=== PATIENT | female | born 1965 | race Caucasian/White ===

== ENCOUNTER 2017-01-02 16:31 | Emergency (ER) | payer BC, MEDICAID ==
[~2017-01-02] VITALS: Ht 162.6 cm; Wt 56.0 kg
[~2017-01-02 16:31] MED LIST: FLUR30CA12 PO; LISI20 PO; METH500T3 PO; MUPI2OIN TOP; NAPR-576 PO; ONDA8
[2017-01-02 16:33] VITALS: BP 139/63; PULSE 66; RESP 12; TEMP 97.6; O2SAT 90
[2017-01-02 18:04] LABS: AUTOMATED NEUTROPHIL # 5.3 TH/MM3 (1.8-7.7); BASOPHIL # 0.1 TH/MM3 (0-0.2); BASOPHIL % 0.9 % (0.0-2.0); EOSINOPHIL # 0.3 TH/MM3 (0-0.4); HEMO FLAGS DIFF FINAL; LYMPHOCYTE # 2.4 TH/MM3 (1.0-4.8); MEAN CELL VOLUME 90.6 FL (80.0-100.0); MEAN CORPUSCULAR HEMOGLOBIN 31.7 PG (27.0-34.0); MEAN CORPUSCULAR HGB CONC 34.9 % (32.0-36.0); MONO % 7.1 % (0.0-8.0); PLATELET COUNT 325 TH/MM3 (150-450); RED BLOOD COUNT 5.18 MIL/MM3 (4.00-5.30); RED CELL DISTRIBUTION WIDTH 13.2 % (11.6-17.2); WHITE BLOOD COUNT 8.6 TH/MM3 (4.0-11.0)
[2017-01-02 18:22] VITALS: BP 169/105; PULSE 81; RESP 18; O2SAT 96
[2017-01-02] MEDS ORDERED: methylPREDNISolone SOD SUCC 125 MG/2 ML VIAL IVP ONE (18:30)
--- NOTE | 2017-01-02 18:45 | PD ---
HPI Chief Complaint: Respiratory Symptoms Time Seen by Provider: 18:21 Travel History International Travel<30 days: No Contact w/Intl Traveler<30days: No Traveled to known affect area: No History of Present Illness HPI 51yo F with CKD, ?COPD who is a cigarette smoker here with multiple complaints today. Pt is c/o sob for 1 week and is wheezing at home. Ventolin is not helping. Pt also with vaginal spotting for 1 week. Pt also states that she had a mass or growth on her ovary that was seen in ultrasound 2 years ago and she has not followed up. Pt also with cloudy, foul smelling urine for 1 week. Denies any fever, chest pain, n/v, dysuria, vaginal discharge, focal weakness or numbness. PFSH Past Medical History Cardiovascular Problems: Yes (HTN) COPD: Yes Diminished Hearing: No Hypertension: Yes Respiratory: Yes (ASTHMA) Tetanus Vaccination: Unknown Influenza Vaccination: Yes ?: Not Social History Alcohol Use: No Tobacco Use: Yes Substance Use: No Allergies-Medications (Allergen,Severity, Reaction): Coded Allergies: Penicillin (Verified Allergy, Severe, 01/02/17) Sulfa (Verified Allergy, Severe, 01/02/17) Reported Meds & Prescriptions Reported Meds & Active Scripts Active Proair Respiclick Inh (Albuterol Sulfate) 90 Mcg/Act Aerp 2 Puff INH Q6H PRN Medrol Dosepak (Methylprednisolone) 4 Mg Dspk 4 Mg PO DIRECTED Per Pharmacist direction Macrobid (Nitrofurantoin Monoh/Nitrofur Macro) 100 Mg Cap 100 Mg PO BID Reported Zofran 8 Mg Tab (Ondansetron Hcl) 8 Mg Tab 8 Mg .XX Mupirocin 2% oint (22 gm) (Mupirocin) 2 % Oin 2 % TOP Q12 Prinivil 20 mg (Lisinopril) 20 Mg Tab 20 Mg PO DAILY Naproxen 500 Mg Tab 500 Mg PO Q12 Flurazepam Hcl (Flurazepam HCl) 30 Mg Cap 30 Mg PO [id number] M1 500 Mg Tab 500 Mg PO Q8 Review of Systems Except as stated in HPI: all other systems reviewed are Neg Physical Exam Narrative GENERAL: 51yo F not in distress. SKIN: Warm and dry. HEAD: Atraumatic. Normocephalic. NECK: Trachea midline. No JVD. CARDIOVASCULAR: Regular rate and rhythm. No murmur appreciated. RESPIRATORY: No accessory muscle use. End expiratory wheezing bilaterally. No retractions. Speaking in complete sentences. O2 sat 94-95% on RA. GASTROINTESTINAL: Abdomen soft, Mild LLQ ttp. No rebound tenderness or guarding. PELVIC: No blood in vaginal vault but there is a small amount of blood at the cervical os. No vaginal discharge. No CMT or adnexal tenderness bilaterally. MUSCULOSKELETAL: No obvious deformities. No clubbing. No cyanosis. No edema. NEUROLOGICAL: Awake and alert. No obvious cranial nerve deficits. Motor grossly within normal limits. Normal speech. PSYCHIATRIC: Appropriate mood and affect; insight and judgment normal. Data Data Last Documented VS Vital Signs Date Time Temp Pulse Resp B/P Pulse Ox O2 Delivery O2 Flow Rate FiO2 01/02/17 21:47 75 16 134/76 100 01/02/17 16:33 97.6 Room Air Orders Complete Blood Count With Diff (01/02/17 17:08) Basic Metabolic Panel (Bmp) (01/02/17 17:08) Electrocardiogram (01/02/17 17:08) Methylprednisolone So Succ Inj (Solumedr (01/02/17 18:30) Albuterol-Ipratropium Neb (Duoneb Neb) (01/02/17 18:30) Chest, Single Ap (01/02/17 ) Gc And Chlamydia Pcr (01/02/17 18:46) Wet Prep Profile (01/02/17 18:46) Urinalysis - C+S If Indicated (01/02/17 18:46) Ed Urine Pregnancytest Poc (01/02/17 18:46) Us Pelvis Comp W Transvaginal (01/02/17 ) Nitrofurantoin Monohyd Macrocr (Macrobid (01/02/17 20:45) Labs Laboratory Tests Test 01/02/17 01/02/17 01/02/17 17:51 18:45 19:45 White Blood Count 8.6 TH/MM3 Red Blood Count 5.18 MIL/MM3 Hemoglobin 16.4 GM/DL Hematocrit 47.0 % Mean Corpuscular Volume 90.6 FL Mean Corpuscular Hemoglobin 31.7 PG Mean Corpuscular Hemoglobin 34.9 % Concent Red Cell Distribution Width 13.2 % Platelet Count 325 TH/MM3 Mean Platelet Volume 7.9 FL Neutrophils (%) (Auto) 61.0 % Lymphocytes (%) (Auto) 28.0 % Monocytes (%) (Auto) 7.1 % Eosinophils (%) (Auto) 3.0 % Basophils (%) (Auto) 0.9 % Neutrophils # (Auto) 5.3 TH/MM3 Lymphocytes # (Auto) 2.4 TH/MM3 Monocytes # (Auto) 0.6 TH/MM3 Eosinophils # (Auto) 0.3 TH/MM3 Basophils # (Auto) 0.1 TH/MM3 CBC Comment DIFF FINAL Differential Comment Sodium Level 137 MEQ/L Potassium Level 3.5 MEQ/L Chloride Level 99 MEQ/L Carbon Dioxide Level 29.2 MEQ/L Anion Gap 9 MEQ/L Blood Urea Nitrogen 31 MG/DL Creatinine 2.41 MG/DL Estimat Glomerular Filtration 21 ML/MIN Rate Random Glucose 110 MG/DL Calcium Level 9.1 MG/DL Clue Cells (Wet Prep) NONE SEEN Vaginal Trichomonas (Wet Prep) NONE SEEN Vaginal Yeast (Wet Prep) NONE SEEN Chlamydia trachomatis DNA NOT DETECTED (PCR) Neisseria gonorrhoeae DNA NOT DETECTED (PCR) Urine Color YELLOW Urine Turbidity CLEAR Urine pH 6.5 Urine Specific [place] 1.011 Urine Protein 100 mg/dL Urine Glucose (UA) NEG mg/dL Urine Ketones NEG mg/dL Urine Occult Blood NEG Urine Nitrite POS Urine Bilirubin NEG Urine Urobilinogen LESS THAN 2.0 MG/DL Urine Leukocyte Esterase TRACE Urine RBC 1 /hpf Urine WBC 6 /hpf Urine Squamous Epithelial <1 /hpf Cells Urine Bacteria RARE /hpf Microscopic Urinalysis Comment CULT NOT INDICATED MDM Medical Decision Making Medical Screen Exam Complete: Yes Emergency Medical Condition: Yes Interpretation(s) EKG: Sinus bradycardia at 59bpm. Normal axis. Q wave III, aVF, V1, V3. SHIRAZ. Differential Diagnosis Ovarian tumor vs. ovarian cyst vs. COPD exacerbation vs. PNA Narrative Course 51yo F with multiple complaints. Pt seen at end of my shift. Pt given duonebs x3 and methylprednisolone 125mg IV. Sign out to next team to follow up labs, CXR, UA, US pelvis. Pt to follow up with VALVE PIPE IRRIGATOR as outpatient if work up negative. Scripts Albuterol Powder Inh (Proair Respiclick Inh)90 Mcg/Act Aerp2 Puff INH Q6H PRN ( SHORTNESS OF BREATH) #1 INHALER Ref 0 Prov:Elma Chavez MD 01/02/17 Methylprednisolone Dosepak (Medrol Dosepak)4 Mg Dspk4 Mg PO DIRECTED #1 DSPK Ref 0 Per Pharmacist direction Prov:Elma Chavez MD 01/02/17 Nitrofurantoin Monohydrate Macrocrystals (Macrobid)100 Mg Prx110 Mg PO BID #19 CAP Ref 0 Prov:Elma Chavez MD 01/02/17 Karlee Hurd DO Jan 02, 2017 18:45
[2017-01-02 18:55] LABS: BICARBONATE 29.2 MEQ/L (21.0-32.0); POTASSIUM 3.5 MEQ/L (3.5-5.1)
[2017-01-02] MEDS: RESP: ALBUTEROL 2.5 MG/IPRATROPIUM 0.5 MG NEB (SCH) INH ×3 (18:55→19:07)
--- NOTE | 2017-01-02 19:09 | RADRPT ---
EXAM DATE/TIME: 01/02/2017 16:52 [facility] COMPARISON: CHEST SINGLE AP, August 31, 2013, 12:37. INDICATIONS : Shortness of breath. MEDICAL HISTORY : Hypertension. Chronic obstructive pulmonary disease. Smoker. SURGICAL HISTORY : None. ENCOUNTER: Initial ACUITY: 2 days PAIN SCORE: 0/10 LOCATION: Bilateral chest FINDINGS: A single view of the chest demonstrates the lungs to be symmetrically aerated without evidence of mas s, infiltrate or effusion. The cardiomediastinal contours are unremarkable. Osseous structures are intact. CONCLUSION: No acute disease. Joss Crowley MD on January 02, 2017 at 19:07 Board Certified Radiologist. This report was verified electronically.
--- NOTE | 2017-01-02 19:50 | PD ---
Physical Exam Narrative General: The patient is a well-developed well-nourished female in no acute distress. Head and Neck exam: Head is normocephalic atraumatic. Cardiovascular: Regular rate and rhythm without murmurs, gallops, or rubs. Lungs: Clear to auscultation bilaterally. No wheezes, rhonchi, or rales. Abdomen: Soft, without tenderness to palpation in all 4 quadrants of the abdomen. No guarding, rebound, or rigidity. Normal bowel sounds are audible. No tenderness on palpation of McBurney's point. The patient has slight suprapubic discomfort on palpation. Extremities: No clubbing, cyanosis, or edema. 2+ pulses in all 4 extremities. Neurologic Exam: Grossly nonfocal. Skin Exam: No rash noted. Intact skin that is warm and dry. Data Data Last Documented VS Vital Signs Date Time Temp Pulse Resp B/P Pulse Ox O2 Delivery O2 Flow Rate FiO2 01/02/17 18:22 81 18 169/105 96 01/02/17 16:33 97.6 Room Air Orders Complete Blood Count With Diff (01/02/17 17:08) Basic Metabolic Panel (Bmp) (01/02/17 17:08) Electrocardiogram (01/02/17 17:08) Methylprednisolone So Succ Inj (Solumedr (01/02/17 18:30) Albuterol-Ipratropium Neb (Duoneb Neb) (01/02/17 18:30) Chest, Single Ap (01/02/17 ) Gc And Chlamydia Pcr (01/02/17 18:46) Wet Prep Profile (01/02/17 18:46) Urinalysis - C+S If Indicated (01/02/17 18:46) Ed Urine Pregnancytest Poc (01/02/17 18:46) Us Pelvis Comp W Transvaginal (01/02/17 ) Nitrofurantoin Monohyd Macrocr (Macrobid (01/02/17 20:45) Labs Laboratory Tests Test 01/02/17 01/02/17 01/02/17 17:51 18:45 19:45 White Blood Count 8.6 TH/MM3 Red Blood Count 5.18 MIL/MM3 Hemoglobin 16.4 GM/DL Hematocrit 47.0 % Mean Corpuscular Volume 90.6 FL Mean Corpuscular Hemoglobin 31.7 PG Mean Corpuscular Hemoglobin 34.9 % Concent Red Cell Distribution Width 13.2 % Platelet Count 325 TH/MM3 Mean Platelet Volume 7.9 FL Neutrophils (%) (Auto) 61.0 % Lymphocytes (%) (Auto) 28.0 % Monocytes (%) (Auto) 7.1 % Eosinophils (%) (Auto) 3.0 % Basophils (%) (Auto) 0.9 % Neutrophils # (Auto) 5.3 TH/MM3 Lymphocytes # (Auto) 2.4 TH/MM3 Monocytes # (Auto) 0.6 TH/MM3 Eosinophils # (Auto) 0.3 TH/MM3 Basophils # (Auto) 0.1 TH/MM3 CBC Comment DIFF FINAL Differential Comment Sodium Level 137 MEQ/L Potassium Level 3.5 MEQ/L Chloride Level 99 MEQ/L Carbon Dioxide Level 29.2 MEQ/L Anion Gap 9 MEQ/L Blood Urea Nitrogen 31 MG/DL Creatinine 2.41 MG/DL Estimat Glomerular Filtration 21 ML/MIN Rate Random Glucose 110 MG/DL Calcium Level 9.1 MG/DL Clue Cells (Wet Prep) NONE SEEN Vaginal Trichomonas (Wet Prep) NONE SEEN Vaginal Yeast (Wet Prep) NONE SEEN Urine Color YELLOW Urine Turbidity CLEAR Urine pH 6.5 Urine Specific [place] 1.011 Urine Protein 100 mg/dL Urine Glucose (UA) NEG mg/dL Urine Ketones NEG mg/dL Urine Occult Blood NEG Urine Nitrite POS Urine Bilirubin NEG Urine Urobilinogen LESS THAN 2.0 MG/DL Urine Leukocyte Esterase TRACE Urine RBC 1 /hpf Urine WBC 6 /hpf Urine Squamous Epithelial <1 /hpf Cells Urine Bacteria RARE /hpf Microscopic Urinalysis Comment CULT NOT INDICATED [facility] Medical Record Reviewed: Yes Supervised Visit with BALWINDER: No Interpretation(s) Last Impressions Pelvis Ultrasound 01/02/17 Signed Impressions: Service Date/Time: Monday, January 02, 2017 19:31 - CONCLUSION: 1. No acute findings. Left ovary not visualized. No adnexal mass or free fluid. Joss Crowley MD Chest X-Ray 01/02/17 Signed Impressions: Service Date/Time: Monday, January 02, 2017 16:52 - CONCLUSION: No acute disease. Joss Crowley MD Narrative Course During the course of the patients emergency department visit, the patients history, examination, and differential diagnosis were reviewed with the patient. The patient had IV access obtained and blood work sent for analysis. The patient was placed on a physical education aide with oximetry and blood pressure monitoring. The patient's case is checked out to me by Dr. Hurd who requested that I review the patient's laboratory studies and ultrasound results. The patient is a 51-year-old female who presents to [facility] emergency Department with a history of shortness of breath. The patient has a history of asthma/COPD. The patient also continues to smoke. She reports that her rescue inhaler has not been helping with this shortness of breath. The patient also reports that she is concerned about her kidney function as she was told that she may end up requiring dialysis. Her last creatinine was reportedly 2.1. Another complaint that the patient reports that this time is having left lower quadrant intermittent abdominal pain with a prior history of a mass that was never followed up on, and vaginal bleeding that recently began after she's been postmenopausal for the last 4-5 years. The patient on examination was noted to have wheezing. The patient was provided Solu-Medrol 125 mg IV, DuoNeb 1. On initial examination by me, the patient is resting comfortably, smiling and interactive. The patients laboratory studies were reviewed and remarkable for a white count of 8.6, hemoglobin 16.4, platelets 325 with a normal differential. Basic metabolic profile is remarkable for a BUN of 31, creatinine 2.41, glucose 110, wet prep is negative Radiology studies were reviewed and remarkable for a chest x-ray that shows no acute abnormality, no infiltrate or pulmonary edema. The patient's ultrasound showed no acute abnormality. The patient was reassured that at this time her creatinine is elevated although her electrolytes are unremarkable and she will not require dialysis today. She is encouraged to continue to follow-up closely and managed her blood pressure well in order to prevent worsening of her renal function. Regarding the patient 's vaginal bleeding, the patient was instructed that she will need to follow-up with a correctional supply supervisor for an endometrial biopsy for postmenopausal bleeding. The patient expressed understanding of this. Regarding the patient's wheezing on examination, the patient will be discharged home with a refill of her rescue inhaler and a Medrol Dosepak taper. The patient is resting comfortably and feels better, is alert and in no distress. The patients results and examination findings were discussed with the patient. The repeat examination is unremarkable and benign. The history, exam, diagnostic testing, and current condition do not suggest any significant pathology to warrant further testing, continued ED treatment, admission, or surgical evaluation at this point. The vital signs have been stable. The patient does not have uncontrollable pain, intractable vomiting, or other significant symptoms. The patient's condition is stable and appropriate for discharge. The patient will pursue further outpatient evaluation with a primary care physician or other designated or consulting physician as indicated in the discharge instructions. The patient expressed understanding and was agreeable with this plan. Diagnosis Primary Impression: COPD exacerbation Additional Impressions: Postmenopausal bleeding Renal insufficiency Urinary tract infection Qualified Code: N30.00 - Acute cystitis without hematuria Referrals: Rin Lynne MD 3 days Primary Care Physician 3 days Patient Instructions: COPD (Chronic Obstructive Pulmonary Disease) (ED), Dysfunctional Uterine Bleeding (ED), General Instructions, Urinary Tract Infection in Women (ED) Med/Other Pt SpecificInfo: Prescription(s) given Scripts Albuterol Powder Inh (Proair Respiclick Inh)90 Mcg/Act Aerp2 Puff INH Q6H PRN ( SHORTNESS OF BREATH) #1 INHALER Ref 0 Prov:Elma Chavez MD 01/02/17 Methylprednisolone Dosepak (Medrol Dosepak)4 Mg Dspk4 Mg PO DIRECTED #1 DSPK Ref 0 Per Pharmacist direction Prov:Elma Chavez MD 01/02/17 Nitrofurantoin Monohydrate Macrocrystals (Macrobid)100 Mg [id number] Mg PO BID #19 CAP Ref 0 Prov:Elma Chavez MD 01/02/17 Disposition: 01 DISCHARGE HOME Condition: Stable Elma Chavez MD Jan 02, 2017 19:50
[2017-01-02 20:08] LABS: BACTERIA, URINE RARE /hpf; BLOOD, URINE NEG (NEG); COMMENT (UR) CULT NOT INDICATED; CULTURE IF INDICATED CULT NOT INDICATED; GLUCOSE,URINE NEG (NEG); KETONE, URINE NEG (NEG); NITRITE,URINE POS (NEG); PH, URINE 6.5 (5.0-8.5); SQUAMOUS EPITHELIAL CELL URINE <1 /hpf (0-5); URINE COLOR YELLOW (YELLW/STRAW)
[2017-01-02] MEDS ORDERED: MACR100C2 PO (20:40)
[2017-01-02] MEDS ORDERED: ALBU1AER5 INH (20:40)
[2017-01-02] MEDS ORDERED: MEDR4PAK PO (20:40)
[2017-01-02] MEDS ORDERED: NITROFURANTOIN MONOHYD MACROCR 100 MG CAP PO ONE (20:45)
--- NOTE | 2017-01-02 21:06 | RADRPT ---
EXAM DATE/TIME: 01/02/2017 19:31 [facility] COMPARISON: No previous studies available for comparison. INDICATIONS : Left lower quadrant pain. Growth on ovaries. MEDICAL HISTORY : Hypertension. Chronic obstructive pulmonary disease. Asthma. SURGICAL HISTORY : Tummy tuck. Breast lift. ENCOUNTER: Initial ACUITY: > 1 year PAIN SCORE: 6/10 LOCATION: Bilateral pelvis MEASUREMENTS: UTERUS: 5.6 x 2.7 x 3.7 cm ENDOMETRIAL STRIPE: 3 mm RIGHT OVARY: 2.0 x 0.8 x 1.5 cm LEFT OVARY: Non visualized FINDINGS: No focal uterine abnormalities. Endometrial stripe thickness 3 mm. Right ovary normal in size. Left o vary not visualized. No adnexal mass. Prominent venous structures in the left adnexal region. No free fluid. CONCLUSION: 1. No acute findings. Left ovary not visualized. No adnexal mass or free fluid. Joss Crowley MD on January 02, 2017 at 21:03 Board Certified Radiologist. This report was verified electronically.
[2017-01-02 21:47] VITALS: BP 134/76
[2017-01-02 22:20] LABS: CHLAMYDIA PCR NOT DETECTED (NOT DETECT); NEISSERIA PCR NOT DETECTED (NOT DETECT)
--- NOTE | 2017-01-03 22:37 | EKG ---
Date Performed: 01/02/2017 Time Performed: 17:42:40 PTAGE: 51 years EKG: SINUS BRADYCARDIA POSSIBLE RIGHT ATRIAL ENLARGEMENT POSSIBLE LEFT ATRIAL ENLARGEMENT INDETE RMINATE AXIS INFERIOR MYOCARDIAL INFARCTION Nonspecific ST and T wave abnormalities, minimal elevatio n inferiorly PREVIOUS TRACING : 08/31/2013 12.13 Compared to the previous tracing, non-specific ST/T w ave changes noted DOCTOR: Jorge A Diez Interpretating Date/Time 01/03/2017 22:35:34
== END 2017-01-02 21:30 | disposition home or self-care (01) ==
LOC: NEPE 16:31
DX: J44.1 Chronic obstructive pulmonary disease with (acute) exacerbation (principal); N95.0 Postmenopausal bleeding; N28.9 Disorder of kidney and ureter, unspecified; N39.0 Urinary tract infection, site not specified; R94.31 Abnormal electrocardiogram [ECG] [EKG]; I10 Essential (primary) hypertension; Z72.0 Tobacco use
CPT/HCPCS: 71010; 76830; 76856; 80048; 81001; 84703; 85025; 87210; 87491; 87591; 93005; 94640; 94664; 96374; 99284; J2930

== ENCOUNTER 2017-04-07 13:39 | Emergency (ER) | payer MEDICAID ==
[~2017-04-07] VITALS: Ht 165.1 cm; Wt 57.7 kg
[~2017-04-07 13:39] MED LIST changes: +ALBU1AER5 INH; +MACR100C2 PO; +MEDR4PAK PO
[2017-04-07 13:51] VITALS: BP 129/87; PULSE 63; RESP 16; TEMP 97.7; O2SAT 97
[2017-04-07 14:35] LABS: BLOOD, URINE TRACE (NEG); GLUCOSE,URINE NEG (NEG); KETONE, URINE NEG (NEG); NITRITE,URINE NEG (NEG); PH, URINE 5.5 (5.0-8.5)
[2017-04-07 14:42] LABS: METHOD OF COLLECTION CLEAN CATCH; SQUAMOUS EPITHELIAL CELL URINE 0-5 /hpf (0-5); URINE COLOR YELLOW (YELLW/STRAW); WBC, URINE 0-2 /hpf (0-5)
[2017-04-07 14:43] LABS: COMMENT (UR) CULT NOT INDICATED; CULTURE IF INDICATED CULT NOT INDICATED
[2017-04-07] MEDS ORDERED: NIFE90TA2 PO (14:56)
[2017-04-07] MEDS ORDERED: LEVO100T5 PO (14:56)
[2017-04-07] MEDS ORDERED: CARV12.52 PO (14:56)
[2017-04-07] MEDS ORDERED: SPIR25TA PO (14:56)
[2017-04-07] MEDS ORDERED: VENTAER INH (14:57)
[2017-04-07] MEDS ORDERED: SODIUM CHLORIDE 0.9% FLUSH 10 ML FLUSH IV FLUSH PRN (15:15)
[2017-04-07] MEDS ORDERED: MORPHINE SULFATE 4 MG/ML INJ IV PUSH ONE (15:15)
--- NOTE | 2017-04-07 15:25 | PD ---
HPI Chief Complaint: Abdominal Pain Time Seen by Provider: 15:01 Travel History International Travel<30 days: No Contact w/Intl Traveler<30days: No Traveled to known affect area: No History of Present Illness HPI 52-year-old female here for evaluation of several different complaints. The patient is here with blood work from 03/27/17 that shows a BUN of 50 and a creatinine of 2.49. The patient was here in December of this year with a creatinine of 2.4. She was given prescriptions/orders by her physician Dr. Merlin Vidales for renal ultrasound, nephrology consult, and 2-D echo, however the patient attempted to obtain these images, however she states that her insurance will not cover them. She is complaining of cough and shortness of breath which is worse at night. Cough is productive of whitish sputum. History of tummy tuck. No history of intra-abdominal surgeries. No fevers. No urinary symptoms. The patient also notes some foul-smelling vaginal discharge. She states that she has not had sexual intercourse in over 1 year. She reports intermittent vaginal bleeding, and was told that she was worked up for this in [place] and was told that she may have cancer. Patient is not sure why she has renal insufficiency, but reports that she was in the ICU in 2014 in [place]. PFSH Past Medical History Cardiovascular Problems: Yes (hx of htn on meds) COPD: Yes Diminished Hearing: No Hypertension: Yes Respiratory: Yes (ASTHMA) Thyroid Disease: Yes Tetanus Vaccination: Unknown ?: Not Social History Alcohol Use: No Tobacco Use: Yes Substance Use: No Allergies-Medications (Allergen,Severity, Reaction): Coded Allergies: Penicillin (Verified Allergy, Severe, 04/07/17) Sulfa (Verified Allergy, Severe, 04/07/17) Reported Meds & Prescriptions Reported Meds & Active Scripts Active Reported Ventolin Hfa 18 GM Inh (Albuterol Sulfate) 90 Mcg/Act Aer 1 Puff INH Q4H PRN Levothyroxine (Levothyroxine Sodium) 100 Mcg Tab 100 Mcg PO DAILY Nifedipine ER (Nifedipine) 90 Mg Tab 90 Mg PO DAILY Spironolactone 25 Mg Tab 25 Mg PO BIDPC Carvedilol 12.5 Mg Tab 12.5 Mg PO BID Review of Systems Except as stated in HPI: all other systems reviewed are Neg Physical Exam Narrative GENERAL: Well-developed, well-nourished, comfortable, no acute distress. SKIN: Focused skin assessment warm/dry. No rash. HEAD: Atraumatic. Normocephalic. EYES: Pupils equal and round. No scleral icterus. No injection or drainage. ENT: No nasal bleeding or discharge. Mucous membranes pink and moist. NECK: Trachea midline. No JVD. CARDIOVASCULAR: Regular rate and rhythm. No murmur appreciated. RESPIRATORY: No accessory muscle use. Clear to auscultation. Breath sounds equal bilaterally. GASTROINTESTINAL: Abdomen soft, nondistended. Mild suprapubic tenderness without peritoneal signs. Normal bowel sounds. 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 Normal external genitalia. No vaginal bleeding or discharge. Normal cervix. No CMT. No adnexal masses or tenderness. MUSCULOSKELETAL: No obvious deformities. No clubbing. No cyanosis. No edema. NEUROLOGICAL: Awake and alert. No obvious cranial nerve deficits. Motor grossly within normal limits. Normal speech. PSYCHIATRIC: Appropriate mood and affect; insight and judgment normal. Data Data Last Documented VS Vital Signs Date Time Temp Pulse Resp B/P Pulse Ox O2 Delivery O2 Flow Rate FiO2 04/07/17 13:51 97.7 63 16 129/87 97 Orders Urinalysis - C+S If Indicated (04/07/17 13:44) Complete Blood Count With Diff (04/07/17 15:13) Comprehensive Metabolic Panel (04/07/17 15:13) Prothrombin Time / Inr (Pt) (04/07/17 15:13) Act Partial Throm Time (Ptt) (04/07/17 15:13) Ct Abd/Pel W/O Iv Contrast (04/07/17 15:13) Iv Access Insert/Monitor (04/07/17 15:13) Ecg Monitoring (04/07/17 15:13) Oximetry (04/07/17 15:13) Morphine Inj (Morphine Inj) (04/07/17 15:15) Sodium Chloride 0.9% Flush (Ns Flush) (04/07/17 15:15) B-Type Natriuretic Peptide (04/07/17 15:13) Chest, Single Ap (04/07/17 ) Gc And Chlamydia Pcr (04/07/17 15:13) Wet Prep Profile (04/07/17 15:13) Metronidazole (Flagyl) (04/07/17 16:00) Labs Laboratory Tests Test 04/07/17 04/07/17 04/07/17 14:10 15:00 15:20 Urine Collection Type CLEAN CATCH Urine Color YELLOW Urine Turbidity CLEAR Urine pH 5.5 Urine Specific [place] 1.010 Urine Protein 300 OR GREATER mg/dL Urine Glucose (UA) NEG mg/dL Urine Ketones NEG mg/dL Urine Occult Blood TRACE Urine Nitrite NEG Urine Bilirubin NEG Urine Leukocyte Esterase NEG Urine WBC 0-2 /hpf Urine Squamous Epithelial 0-5 /hpf Cells Microscopic Urinalysis Comment CULT NOT INDICATED White Blood Count 5.8 TH/MM3 Red Blood Count 4.85 MIL/MM3 Hemoglobin 15.0 GM/DL Hematocrit 44.5 % Mean Corpuscular Volume 91.7 FL Mean Corpuscular Hemoglobin 31.0 PG Mean Corpuscular Hemoglobin 33.8 % Concent Red Cell Distribution Width 11.6 % Platelet Count 258 TH/MM3 Mean Platelet Volume 8.2 FL Neutrophils (%) (Auto) 53.8 % Lymphocytes (%) (Auto) 29.2 % Monocytes (%) (Auto) 11.8 % Eosinophils (%) (Auto) 4.3 % Basophils (%) (Auto) 0.9 % Neutrophils # (Auto) 3.0 TH/MM3 Lymphocytes # (Auto) 1.7 TH/MM3 Monocytes # (Auto) 0.7 TH/MM3 Eosinophils # (Auto) 0.3 TH/MM3 Basophils # (Auto) 0.1 TH/MM3 CBC Comment DIFF FINAL Differential Comment Prothrombin Time 10.5 SEC Prothromb Time International 1.0 RATIO Ratio Activated Partial 27.4 SEC Thromboplast Time Sodium Level 140 MEQ/L Potassium Level 4.1 MEQ/L Chloride Level 104 MEQ/L Carbon Dioxide Level 28.4 MEQ/L Anion Gap 8 MEQ/L Blood Urea Nitrogen 32 MG/DL Creatinine 2.30 MG/DL Estimat Glomerular Filtration 22 ML/MIN Rate Random Glucose 93 MG/DL Calcium Level 9.0 MG/DL Total Bilirubin 0.5 MG/DL Aspartate Amino Transf 28 U/L (AST/SGOT) Alanine Aminotransferase 29 U/L (ALT/SGPT) Alkaline Phosphatase 64 U/L B-Type Natriuretic Peptide 145 PG/ML Total Protein 7.4 GM/DL Albumin 3.2 GM/DL Clue Cells (Wet Prep) PRESENT Vaginal Trichomonas (Wet Prep) NONE SEEN Vaginal Yeast (Wet Prep) NONE SEEN MDM Medical Decision Making Medical Screen Exam Complete: Yes Emergency Medical Condition: Yes Medical Record Reviewed: Yes Differential Diagnosis Chronic renal insufficiency, metabolic abnormality, electrolyte abnormality, cystitis, UTI, PID, ovarian cyst, ovarian torsion unlikely, appendicitis, colitis, diverticulitis, pneumonia, bronchitis, pulmonary edema Narrative Course Vital signs are within normal limits. CBC is unremarkable. CMP is remarkable for BUN 32, creatinine 2.3, GFR 22 (labs on 03/27/17 show BUN 50 , creatinine 2.49, GFR 21) Chest x-ray: CONCLUSION: 1. No acute disease. 2. Tiny 3 mm nodule within the right upper lobe is likely benign. If this patient is a smoker, follow-up CT of the chest in one year may be indicated. Patient was made aware of pulmonary nodule. She continues to smoke about a pack of cigarettes per day. UA shows 300 or greater protein, trace occult blood, not suggestive of UTI. Wet prep is positive for clue cells. Patient was given a dose of Flagyl. At approximately 4:00 PM at the end of my shift the patient was signed out to Dr. Gusman who will follow up with CT abdomen pelvis, rest of labs, and will disposition the patient. Diagnosis Primary Impression: Bacterial vaginosis Additional Impressions: Chronic renal insufficiency Qualified Code: N18.9 - Chronic renal insufficiency, unspecified stage Pulmonary nodule Jessee Hillman MD April 07, 2017 15:25
[2017-04-07 15:28] LABS: BASOPHIL # 0.1 TH/MM3 (0-0.2); BASOPHIL % 0.9 % (0.0-2.0); EOSINOPHIL # 0.3 TH/MM3 (0-0.4); EOSINOPHIL % 4.3 % (0.0-4.0); HEMATOCRIT 44.5 % (35.0-46.0); HEMO FLAGS DIFF FINAL; LYMPH % 29.2 % (9.0-44.0); LYMPHOCYTE # 1.7 TH/MM3 (1.0-4.8); MEAN CELL VOLUME 91.7 FL (80.0-100.0); MEAN CORPUSCULAR HGB CONC 33.8 % (32.0-36.0); MONO % 11.8 % (0.0-8.0); NEUT % 53.8 % (16.0-70.0); PLATELET COUNT 258 TH/MM3 (150-450); RED BLOOD COUNT 4.85 MIL/MM3 (4.00-5.30); RED CELL DISTRIBUTION WIDTH 11.6 % (11.6-17.2); WHITE BLOOD COUNT 5.8 TH/MM3 (4.0-11.0)
[2017-04-07 15:36] LABS: CHLORIDE 104 MEQ/L (98-107); POTASSIUM 4.1 MEQ/L (3.5-5.1); SODIUM (NA) 140 MEQ/L (136-145)
[2017-04-07 15:40] LABS: ANION GAP 8 MEQ/L (5-15); BICARBONATE 28.4 MEQ/L (21.0-32.0); BLOOD UREA NITROGEN 32 MG/DL (7-18)
[2017-04-07 15:42] LABS: APTT (PATIENT) 27.4 SEC (24.3-30.1); PROTHROMBIN TIME - PATIENT 10.5 SEC (9.8-11.6)
[2017-04-07 15:43] LABS: ALT (GPT) 29 U/L (10-53); AST (GOT) 28 U/L (15-37); GLOMERULAR FILTRATION RATE 22 ML/MIN (>89)
[2017-04-07 15:44] LABS: TOTAL BILIRUBIN ADULT 0.5 MG/DL (0.2-1.0)
[2017-04-07 15:45] LABS: ALKALINE PHOSPHATASE 64 U/L (45-117)
--- NOTE | 2017-04-07 15:51 | RADHPO ---
EXAM DATE/TIME: 04/07/2017 15:30 [facility] COMPARISON: CHEST SINGLE AP, August 31, 2013, 12:37. CT PULMONARY ANGIOGRAM, August 31, 2013, 14:26. CHEST SI NGLE AP, January 02, 2017, 16:52. INDICATIONS : Cough. MEDICAL HISTORY : Congestive heart failure. Renal failure, acute. Chronic obstructive pulmonary disease. Hypertensi on. SURGICAL HISTORY : None. ENCOUNTER: Initial ACUITY: 3 days PAIN SCORE: 0/10 LOCATION: Bilateral chest FINDINGS: A single view of the chest demonstrates the lungs to be symmetrically aerated without evidence of mas s, infiltrate or effusion. Tiny 3 mm nodule within the right upper lobe is likely benign. The cardio mediastinal contours are unremarkable. Osseous structures are intact. CONCLUSION: 1. No acute disease. 2. Tiny 3 mm nodule within the right upper lobe is likely benign. If this patient is a smoker, follow -up CT of the chest in one year may be indicated. Andrews Morataya MD on April 07, 2017 at 15:40 Board Certified Radiologist. This report was verified electronically.
[2017-04-07] MEDS ORDERED: metroNIDAZOLE 500 MG TAB PO ONE (16:00)
--- NOTE | 2017-04-07 16:51 | RADHPO ---
EXAM DATE/TIME: 04/07/2017 16:17 [facility] COMPARISON: No previous studies available for comparison. INDICATIONS : Abdomen pain. ORAL CONTRAST: No oral contrast ingested. RADIATION DOSE: 8.16 CTDIvol (mGy) MEDICAL HISTORY : Renal failure, acute. SURGICAL HISTORY : Lumbar ENCOUNTER: Initial ACUITY: 1 day PAIN SCALE: 4/10 LOCATION: Bilateral abdomen. TECHNIQUE: Volumetric scanning of the abdomen and pelvis was performed. Using automated exposure control and ad justment of the mA and/or kV according to patient size, radiation dose was kept as low as reasonably achievable to obtain optimal diagnostic quality images. FINDINGS: LOWER LUNGS: The visualized lower lungs are clear. LIVER: Homogeneous density without lesion. There is no dilation of the biliary tree. Cholelithiasis is note d. SPLEEN: Normal size without lesion. PANCREAS: Within normal limits. KIDNEYS: Normal in size and shape. There is no mass, stone, or hydronephrosis. ADRENAL GLANDS: Within normal limits. VASCULAR: There is no aortic aneurysm. BOWEL/MESENTERY: The stomach, small bowel, and colon demonstrate no acute abnormality. There is no free intraperitone al air or fluid. ABDOMINAL WALL: Within normal limits. RETROPERITONEUM: There is no lymphadenopathy. BLADDER: No wall thickening or mass. REPRODUCTIVE: Within normal limits. INGUINAL: There is no lymphadenopathy or hernia. MUSCULOSKELETAL: Degenerative changes are noted within the lower lumbar spine. Fusion hardware is noted in the lumbar sacral region. CONCLUSION: 1. Cholelithiasis. 2. Degenerative changes within lower lumbar spine. 3. No acute intra-abdominal process. Andrews Morataya MD on April 07, 2017 at 16:43 Board Certified Radiologist. This report was verified electronically.
[2017-04-07] MEDS ORDERED: METR-1 PO (16:56)
--- NOTE | 2017-04-07 16:59 | PD ---
Data Data Last Documented VS Vital Signs Date Time Temp Pulse Resp B/P Pulse Ox O2 Delivery O2 Flow Rate FiO2 04/07/17 13:51 97.7 63 16 129/87 97 Orders Urinalysis - C+S If Indicated (04/07/17 13:44) Complete Blood Count With Diff (04/07/17 15:13) Comprehensive Metabolic Panel (04/07/17 15:13) Prothrombin Time / Inr (Pt) (04/07/17 15:13) Act Partial Throm Time (Ptt) (04/07/17 15:13) Ct Abd/Pel W/O Iv Contrast (04/07/17 15:13) Iv Access Insert/Monitor (04/07/17 15:13) Ecg Monitoring (04/07/17 15:13) Oximetry (04/07/17 15:13) Morphine Inj (Morphine Inj) (04/07/17 15:15) Sodium Chloride 0.9% Flush (Ns Flush) (04/07/17 15:15) B-Type Natriuretic Peptide (04/07/17 15:13) Chest, Single Ap (04/07/17 ) Gc And Chlamydia Pcr (04/07/17 15:13) Wet Prep Profile (04/07/17 15:13) Metronidazole (Flagyl) (04/07/17 16:00) Labs Laboratory Tests Test 04/07/17 04/07/17 04/07/17 14:10 15:00 15:20 Urine Collection Type CLEAN CATCH Urine Color YELLOW Urine Turbidity CLEAR Urine pH 5.5 Urine Specific [place] 1.010 Urine Protein 300 OR GREATER mg/dL Urine Glucose (UA) NEG mg/dL Urine Ketones NEG mg/dL Urine Occult Blood TRACE Urine Nitrite NEG Urine Bilirubin NEG Urine Leukocyte Esterase NEG Urine WBC 0-2 /hpf Urine Squamous Epithelial 0-5 /hpf Cells Microscopic Urinalysis Comment CULT NOT INDICATED White Blood Count 5.8 TH/MM3 Red Blood Count 4.85 MIL/MM3 Hemoglobin 15.0 GM/DL Hematocrit 44.5 % Mean Corpuscular Volume 91.7 FL Mean Corpuscular Hemoglobin 31.0 PG Mean Corpuscular Hemoglobin 33.8 % Concent Red Cell Distribution Width 11.6 % Platelet Count 258 TH/MM3 Mean Platelet Volume 8.2 FL Neutrophils (%) (Auto) 53.8 % Lymphocytes (%) (Auto) 29.2 % Monocytes (%) (Auto) 11.8 % Eosinophils (%) (Auto) 4.3 % Basophils (%) (Auto) 0.9 % Neutrophils # (Auto) 3.0 TH/MM3 Lymphocytes # (Auto) 1.7 TH/MM3 Monocytes # (Auto) 0.7 TH/MM3 Eosinophils # (Auto) 0.3 TH/MM3 Basophils # (Auto) 0.1 TH/MM3 CBC Comment DIFF FINAL Differential Comment Prothrombin Time 10.5 SEC Prothromb Time International 1.0 RATIO Ratio Activated Partial 27.4 SEC Thromboplast Time Sodium Level 140 MEQ/L Potassium Level 4.1 MEQ/L Chloride Level 104 MEQ/L Carbon Dioxide Level 28.4 MEQ/L Anion Gap 8 MEQ/L Blood Urea Nitrogen 32 MG/DL Creatinine 2.30 MG/DL Estimat Glomerular Filtration 22 ML/MIN Rate Random Glucose 93 MG/DL Calcium Level 9.0 MG/DL Total Bilirubin 0.5 MG/DL Aspartate Amino Transf 28 U/L (AST/SGOT) Alanine Aminotransferase 29 U/L (ALT/SGPT) Alkaline Phosphatase 64 U/L B-Type Natriuretic Peptide 145 PG/ML Total Protein 7.4 GM/DL Albumin 3.2 GM/DL Clue Cells (Wet Prep) PRESENT Vaginal Trichomonas (Wet Prep) NONE SEEN Vaginal Yeast (Wet Prep) NONE SEEN MDM Supervised Visit with BALWINDER: Yes Narrative Course 52 year-old woman, in ED with multiple complaints. She has chronic kidney disease and requires follow-up. She also had some lower abdominal pain with foul-smelling vaginal discharge. She also had some cough and shortness of breath symptoms. She was signed out to me to follow-up on the results of CT of the abdomen and pelvis. Studies show: CBC is unremarkable CMP with elevated BUN/creatinine, consistent with baseline BNP is 145 Coags are unremarkable UA with proteinuria Wet prep with clue cells GC chlamydia is pending Chest x-ray: Small right upper lobe nodule, Patient smokes social need follow- up in [address] abdomen and pelvis: Gallstones. Degenerative changes in the back. Otherwise negative. Diagnosis Primary Impression: Bacterial vaginosis Additional Impressions: Pulmonary nodule Chronic renal insufficiency Qualified Code: N18.9 - Chronic renal insufficiency, unspecified stage Additional Instruction: Follow-up with her primary physician in the next 2-4 days. You need follow-up regarding her pulmonary nodules, and your chronic kidney disease. Return to the emergency department for any new or worsening symptoms. Take Flagyl as prescribed for bacterial vaginosis. Med/Other Pt SpecificInfo: Prescription(s) given Scripts Metronidazole (Flagyl)500 Mg [id number] Mg PO BID 7 Days Ref 0 Prov:Roger Bishop MD 04/07/17 Disposition: 01 DISCHARGE HOME Condition: Stable Roger Bishop MD April 07, 2017 16:59
[2017-04-07 17:05] VITALS: RESP 16; O2SAT 97
[2017-04-07 17:08] VITALS: BP 131/90
[2017-04-07 23:42] LABS: CHLAMYDIA PCR NOT DETECTED (NOT DETECT); NEISSERIA PCR NOT DETECTED (NOT DETECT)
== END 2017-04-07 17:19 | disposition home or self-care (01) ==
LOC: PHED 13:39
DX: N76.0 Acute vaginitis (principal); R91.1 Solitary pulmonary nodule; I12.9 Hypertensive chronic kidney disease with stage 1 through stage 4 chronic kidney disease, or unspecified chronic kidney disease; N18.9 Chronic kidney disease, unspecified; Z72.0 Tobacco use; J44.9 Chronic obstructive pulmonary disease, unspecified; I50.9 Heart failure, unspecified
CPT/HCPCS: 71010; 74176; 80053; 81001; 83880; 85025; 85610; 85730; 87210; 87491; 87591; 96374; 99284; J2270

== ENCOUNTER 2017-04-19 15:41 | Emergency (ER) | payer MEDICAID ==
[~2017-04-19] VITALS: Ht 165.1 cm; Wt 55.0 kg
[~2017-04-19 15:41] MED LIST changes: -ALBU1AER5 INH; +CARV12.52 PO; -FLUR30CA12 PO; +LEVO100T5 PO; -LISI20 PO; -MACR100C2 PO; -MEDR4PAK PO; -METH500T3 PO; +METR-1 PO; -MUPI2OIN TOP; -NAPR-576 PO; +NIFE90TA2 PO; -ONDA8; +SPIR25TA PO; +VENTAER INH
[2017-04-19 15:44] VITALS: BP 142/83; PULSE 70; RESP 20; TEMP 97.8; O2SAT 92
[2017-04-19] MEDS ORDERED: SODIUM CHLORIDE 0.9% FLUSH 10 ML FLUSH IVF PRN (16:00)
[2017-04-19] MEDS ORDERED: RESP: ALBUTEROL 2.5 MG/IPRATROPIUM 0.5 MG NEB (SCH) INH ONE (16:00)
--- NOTE | 2017-04-19 16:02 | PD ---
HPI Chief Complaint: Respiratory Symptoms Time Seen by Provider: 15:59 Travel History International Travel<30 days: No Contact w/Intl Traveler<30days: No Traveled to known affect area: No History of Present Illness HPI 52-year-old female with history of COPD, CHF, smoking, hypertension, presents to the ER today for several weeks' history of coughing with whitish phlegm, shortness of breath, dyspnea on exertion. She denies any fevers, vomiting, or any other symptoms. She states that the symptoms seems to have started after they stopped giving her Lasix. Modifying Factors: None Associated Signs & Symptoms: Coughing, shortness of breath Risk Factors: COPD, CHF PFSH Past Medical History Cardiovascular Problems: Yes (hx of htn on meds) COPD: Yes Diminished Hearing: No Hypertension: Yes Respiratory: Yes Thyroid Disease: Yes Social History Alcohol Use: No Tobacco Use: Yes Substance Use: No Allergies-Medications (Allergen,Severity, Reaction): Coded Allergies: Penicillin (Verified Allergy, Severe, 04/19/17) Sulfa (Verified Allergy, Severe, 04/19/17) Reported Meds & Prescriptions Reported Meds & Active Scripts Active Reported Ventolin Hfa 18 GM Inh (Albuterol Sulfate) 90 Mcg/Act Aer 1 Puff INH Q4H PRN Levothyroxine (Levothyroxine Sodium) 100 Mcg Tab 100 Mcg PO DAILY Nifedipine ER (Nifedipine) 90 Mg Tab 90 Mg PO DAILY Spironolactone 25 Mg Tab 25 Mg PO BIDPC Carvedilol 12.5 Mg Tab 12.5 Mg PO BID Review of Systems Except as stated in HPI: all other systems reviewed are Neg Physical Exam Narrative GENERAL: Well-developed middle age white female patient in moderate respirator distress. Awake and oriented 3. SKIN: Focused skin assessment warm/dry. HEAD: Atraumatic. Normocephalic. EYES: Pupils equal and round. No scleral icterus. No injection or drainage. ENT: No nasal bleeding or discharge. Mucous membranes pink and moist. NECK: Trachea midline. No JVD. CARDIOVASCULAR: Regular rate and rhythm. No murmur appreciated. RESPIRATORY: Mild accessory muscle use. With wheezing throughout, decreased lung sounds at the bases and notable for crackles at the left base. Breath sounds equal bilaterally. GASTROINTESTINAL: Abdomen soft, non-tender, nondistended. Hepatic and splenic margins not palpable. MUSCULOSKELETAL: No obvious deformities. No clubbing. No cyanosis. No edema. NEUROLOGICAL: Awake and alert. No obvious cranial nerve deficits. Motor grossly within normal limits. Normal speech. PSYCHIATRIC: Appropriate mood and affect; insight and judgment normal. Data Data Last Documented VS Vital Signs Date Time Temp Pulse Resp B/P Pulse Ox O2 Delivery O2 Flow Rate FiO2 04/19/17 16:06 92 Nasal Cannula 2 04/19/17 16:00 70 18 04/19/17 15:44 97.8 142/83 Orders Complete Blood Count With Diff (04/19/17 15:59) Comprehensive Metabolic Panel (04/19/17 15:59) B-Type Natriuretic Peptide (04/19/17 15:59) Iv Access Insert/Monitor (04/19/17 15:59) Electrocardiogram (04/19/17 15:59) Ecg Monitoring (04/19/17 15:59) Oximetry (04/19/17 15:59) Oxygen Administration (04/19/17 15:59) Chest, Single Ap (04/19/17 15:59) Sodium Chloride 0.9% Flush (Ns Flush) (04/19/17 16:00) Albuterol-Ipratropium Neb (Duoneb Neb) (04/19/17 16:00) Methylprednisolone So Succ Inj (Solumedr (04/19/17 16:45) Albuterol-Ipratropium Neb (Duoneb Neb) (04/19/17 16:45) Prothrombin Time / Inr (Pt) (04/19/17 16:38) Act Partial Throm Time (Ptt) (04/19/17 16:38) D-Dimer (04/19/17 16:38) Labs Laboratory Tests Test 04/19/17 04/19/17 16:20 16:45 White Blood Count 6.4 TH/MM3 Red Blood Count 4.88 MIL/MM3 Hemoglobin 15.1 GM/DL Hematocrit 44.5 % Mean Corpuscular Volume 91.2 FL Mean Corpuscular Hemoglobin 31.0 PG Mean Corpuscular Hemoglobin 34.0 % Concent Red Cell Distribution Width 11.3 % Platelet Count 248 TH/MM3 Mean Platelet Volume 8.2 FL Neutrophils (%) (Auto) 50.1 % Lymphocytes (%) (Auto) 35.2 % Monocytes (%) (Auto) 10.4 % Eosinophils (%) (Auto) 3.6 % Basophils (%) (Auto) 0.7 % Neutrophils # (Auto) 3.2 TH/MM3 Lymphocytes # (Auto) 2.3 TH/MM3 Monocytes # (Auto) 0.7 TH/MM3 Eosinophils # (Auto) 0.2 TH/MM3 Basophils # (Auto) 0.0 TH/MM3 CBC Comment DIFF FINAL Differential Comment Sodium Level 146 MEQ/L Potassium Level 3.8 MEQ/L Chloride Level 109 MEQ/L Carbon Dioxide Level 28.3 MEQ/L Anion Gap 9 MEQ/L Blood Urea Nitrogen 30 MG/DL Creatinine 2.20 MG/DL Estimat Glomerular Filtration 23 ML/MIN Rate Random Glucose 104 MG/DL Calcium Level 9.0 MG/DL Total Bilirubin 0.4 MG/DL Aspartate Amino Transf 25 U/L (AST/SGOT) Alanine Aminotransferase 38 U/L (ALT/SGPT) Alkaline Phosphatase 59 U/L B-Type Natriuretic Peptide 122 PG/ML Total Protein 6.9 GM/DL Albumin 2.9 GM/DL Prothrombin Time 10.5 SEC Prothromb Time International 1.0 RATIO Ratio Activated Partial 26.9 SEC Thromboplast Time D-Dimer Quantitative (PE/DVT) 0.21 MG/L FEU [facility] Medical Decision Making Medical Screen Exam Complete: Yes Emergency Medical Condition: Yes Medical Record Reviewed: Yes Interpretation(s) EKG shows NSR, no ST elevation or depression, and no arrhythmias. No significant T-wave inversions. Laboratory Tests Test 04/19/17 16:20 Red Cell Distribution Width 11.3 % (11.6-17.2) Monocytes (%) (Auto) 10.4 % (0.0-8.0) Sodium Level 146 MEQ/L (136-145) Chloride Level 109 MEQ/L (98-107) Blood Urea Nitrogen 30 MG/DL (7-18) Creatinine 2.20 MG/DL (0.50-1.00) Estimat Glomerular Filtration 23 ML/MIN (>89) Rate B-Type Natriuretic Peptide 122 PG/ML (0-100) Albumin 2.9 GM/DL (3.4-5.0) Last 24 hours Impressions Chest X-Ray 04/19/17 2701 Signed Impressions: Service Date/Time: March 16:27 - CONCLUSION: No acute cardiopulmonary abnormality is identified. Darshan Hartman MD Differential Diagnosis Dyspnea on exertion, coughingpneumonia versus CHF versus COPD exacerbation Narrative Course Chest x-ray did not show any signs of acute pulmonary infiltrates. Her d-dimer is negative. Patient was given Solu-Medrol and several nebulizers in the ER with improvement symptoms. At this point, I suspect that she has an underlying bronchitis and likely COPD exacerbation, and plan on releasing her was symptomatically relief. I have talked her about smoking cessation as a way to help improve her breathing issues. She should return for any worsening in symptoms as needed. The plan has discussed with her and she is agreeable. Diagnosis Primary Impression: COPD exacerbation Additional Impression: Bronchitis Med/Other Pt SpecificInfo: Prescription(s) given Scripts Azithromycin (Zithromax Z-Mikhail)250 Mg [id number] Mg PO DIRECTED #1 DSPK Ref 0 500 MG (2 tabs) day 1, then 1 tab days 2-5. Prov:Vangie Hand MD 04/19/17 Albuterol 6.7 GM Inh (Proventil Hfa 6.7 GM Inh)90 Mcg/Act Aer2 Puff INH Q4-6H PRN (SHORTNESS OF BREATH) #1 INHALER Ref 0 Prov:Vangie Hand MD 04/19/17 Prednisone 50 Mg Tab50 Mg PO DAILY #5 TAB Ref 0 Prov:Vangie Hand MD 04/19/17 Disposition: 01 DISCHARGE HOME Condition: Stable Vangie Hand MD April 19, 2017 16:02
[2017-04-19 16:06] VITALS: O2SAT 92
[2017-04-19 16:39] LABS: AUTOMATED NEUTROPHIL # 3.2 TH/MM3 (1.8-7.7); BASOPHIL % 0.7 % (0.0-2.0); EOSINOPHIL # 0.2 TH/MM3 (0-0.4); EOSINOPHIL % 3.6 % (0.0-4.0); HEMATOCRIT 44.5 % (35.0-46.0); HEMO FLAGS DIFF FINAL; LYMPH % 35.2 % (9.0-44.0); LYMPHOCYTE # 2.3 TH/MM3 (1.0-4.8); MEAN CELL VOLUME 91.2 FL (80.0-100.0); MONO % 10.4 % (0.0-8.0); NEUT % 50.1 % (16.0-70.0); PLATELET COUNT 248 TH/MM3 (150-450); RED BLOOD COUNT 4.88 MIL/MM3 (4.00-5.30); RED CELL DISTRIBUTION WIDTH 11.3 % (11.6-17.2); WHITE BLOOD COUNT 6.4 TH/MM3 (4.0-11.0)
[2017-04-19] MEDS: RESP: ALBUTEROL 2.5 MG/IPRATROPIUM 0.5 MG NEB (SCH) INH (16:41)
[2017-04-19 16:43] LABS: CHLORIDE 109 MEQ/L (98-107); POTASSIUM 3.8 MEQ/L (3.5-5.1); SODIUM (NA) 146 MEQ/L (136-145)
--- NOTE | 2017-04-19 16:43 | RADHPO ---
EXAM DATE/TIME: 04/19/2017 16:27 [facility] COMPARISON: CHEST SINGLE AP, April 07, 2017, 15:30. INDICATIONS : Patient states short of breath, productive cough and chest pain since last week. MEDICAL HISTORY : Renal failure, acute. SURGICAL HISTORY : None. ENCOUNTER: Initial ACUITY: 1 week PAIN SCORE: 8/10 LOCATION: Bilateral chest FINDINGS: Portable AP view of the chest demonstrates a normal-sized cardiac silhouette. No effusion, consolidat ion, or pneumothorax is visualized. The bones and soft tissues demonstrate no acute abnormality. CONCLUSION: No acute cardiopulmonary abnormality is identified. Darshan Hartman MD on April 19, 2017 at 16:41 Board Certified Radiologist. This report was verified electronically.
[2017-04-19] MEDS ORDERED: methylPREDNISolone SOD SUCC 125 MG/2 ML VIAL IV PUSH ONE (16:45)
[2017-04-19 16:46] LABS: ANION GAP 9 MEQ/L (5-15); BICARBONATE 28.3 MEQ/L (21.0-32.0)
[2017-04-19 16:47] LABS: BLOOD UREA NITROGEN 30 MG/DL (7-18)
[2017-04-19 16:50] LABS: ALT (GPT) 38 U/L (10-53); AST (GOT) 25 U/L (15-37); GLOMERULAR FILTRATION RATE 23 ML/MIN (>89)
[2017-04-19 16:51] LABS: TOTAL BILIRUBIN ADULT 0.4 MG/DL (0.2-1.0)
[2017-04-19 16:52] LABS: ALKALINE PHOSPHATASE 59 U/L (45-117)
[2017-04-19 17:08] LABS: APTT (PATIENT) 26.9 SEC (24.3-30.1); PROTHROMBIN TIME - PATIENT 10.5 SEC (9.8-11.6)
[2017-04-19] MEDS ORDERED: ALBU6.7H INH (17:18)
[2017-04-19] MEDS ORDERED: PRED50 PO (17:18)
[2017-04-19] MEDS ORDERED: ZITHTAB PO (17:18)
[2017-04-19 17:36] VITALS: BP 133/98
--- NOTE | 2017-04-20 15:50 | EKG ---
Date Performed: 04/19/2017 Time Performed: 16:01:40 PTAGE: 52 years EKG: Sinus rhythm Possible left atrial abnormality Left axis deviation Inferior infarct - age undetermined Septal ST c hanges are nonspecific Low QRS voltages in precordial leads Right atrial enlargement. When compared t o previous tracing,. Since previous tracing, no significant change noted Abnormal ECG PREVIOUS TRACING : 01/02/2017 17.42 DOCTOR: Nik Mckeon Interpretating Date/Time 04/20/2017 15:49:44
== END 2017-04-19 17:38 | disposition home or self-care (01) ==
LOC: PHED 15:41
DX: J44.1 Chronic obstructive pulmonary disease with (acute) exacerbation (principal); R94.31 Abnormal electrocardiogram [ECG] [EKG]; I51.7 Cardiomegaly; R06.02 Shortness of breath; I10 Essential (primary) hypertension; E07.9 Disorder of thyroid, unspecified; Z72.0 Tobacco use; Z79.899 Other long term (current) drug therapy; Z71.6 Tobacco abuse counseling
CPT/HCPCS: 71010; 80053; 83880; 85025; 85379; 85610; 85730; 93005; 94640; 94664; 96374; 99285; J2930

== ENCOUNTER 2017-04-21 06:45 | Inpatient (IN) | payer MEDICAID ==
[2017-04-21] VITALS (16 sets, daily range): BP systolic 126–141; BP diastolic 80–97; PULSE 58–79; RESP 16–28; TEMP 98.1–98.2; O2SAT 88–99
[~2017-04-21] VITALS: Ht 165.1 cm; Wt 65.2 kg
[~2017-04-21 06:45] MED LIST changes: +ALBU6.7H INH; -METR-1 PO; +PRED50 PO; +ZITHTAB PO
[2017-04-21] MEDS ORDERED: ALBU1AER5 INH (07:19)
--- NOTE | 2017-04-21 07:22 | PD ---
HPI Chief Complaint: respiratory distress Time Seen by Provider: 07:16 Travel History International Travel<30 days: No Contact w/Intl Traveler<30days: No Traveled to known affect area: No History of Present Illness HPI This is a 52-year-old female with a history of COPD, reported congestive heart failure, renal insufficiency, who presents today with complaints of shortness of breath. The patient states that started 2 days ago. She states this progressively gotten worse. She reports coughing up white phlegm. She denies any fevers, chills. She denies any nausea vomiting. She denies any chest pain. The patient states that she has had respiratory failure in the past. She states that she was in a coma in the past secondary to respiratory failure and heart failure. PFSH Past Medical History Cardiovascular Problems: Yes (hx of htn on meds) COPD: Yes Coronary Artery Disease: Yes Diminished Hearing: No Hypertension: Yes Respiratory: Yes (COPD) Renal Failure: Yes (In Coma for 3 days following kidney failure) Thyroid Disease: Yes ?: Not Social History Alcohol Use: Yes (Socially) Tobacco Use: No Substance Use: No Allergies-Medications (Allergen,Severity, Reaction): Coded Allergies: Penicillin (Verified Allergy, Severe, 04/21/17) Sulfa (Verified Allergy, Severe, 04/21/17) Reported Meds & Prescriptions Reported Meds & Active Scripts Active Zithromax Z-Mikhail (Azithromycin) 250 Mg Dspk 250 Mg PO DIRECTED 500 MG (2 tabs) day 1, then 1 tab days 2-5. Prednisone 50 Mg Tab 50 Mg PO DAILY Reported Proair Respiclick Inh (Albuterol Sulfate) 90 Mcg/Act Aerp 2 Puff INH Q6H PRN Levothyroxine (Levothyroxine Sodium) 100 Mcg Tab 100 Mcg PO DAILY Nifedipine ER (Nifedipine) 90 Mg Tab 90 Mg PO DAILY Spironolactone 25 Mg Tab 25 Mg PO BIDPC Carvedilol 12.5 Mg Tab 12.5 Mg PO BID Review of Systems Except as stated in HPI: all other systems reviewed are Neg General / Constitutional: No: Fever, Chills HENT: No: Headaches, Lightheadedness Cardiovascular: No: Chest Pain or Discomfort, Palpitations Respiratory: Positive: Cough, Shortness of Breath (productive white phlegm), Wheezing Gastrointestinal: No: Nausea, Vomiting, Abdominal Pain Genitourinary: No: Frequency, Dysuria Musculoskeletal: No: Myalgias, Weakness Neurologic: No: Weakness, Dizziness Physical Exam Narrative GENERAL: Well-nourished, well-developed patient, in mild to moderate respiratory discomfort. SKIN: Focused skin assessment warm/dry. HEAD: Normocephalic/atraumatic. EYES: No scleral icterus. No injection or drainage. NECK: Supple, trachea midline. No JVD or lymphadenopathy. CARDIOVASCULAR: Regular rate and rhythm without murmurs, gallops, or rubs. RESPIRATORY: Diffuse expiratory wheezes. No Rales appreciated. Decreased breaths sounds in the bases GASTROINTESTINAL: Abdomen soft, non-tender, nondistended. MUSCULOSKELETAL: No cyanosis, or edema. BACK: Nontender without obvious deformity. No CVA tenderness. NEUROLOGICAL: Awake and alert. Cranial nerves II through XII intact. Motor grossly within normal limits. Five out of 5 muscle strength in all muscle groups. Normal speech. Data Data Last Documented VS Vital Signs Date Time Temp Pulse Resp B/P Pulse Ox O2 Delivery O2 Flow Rate FiO2 04/21/17 11:30 96 BiPAP 04/21/17 11:00 58 16 126/83 2 04/21/17 09:00 40 04/21/17 06:50 98.2 Orders Complete Blood Count With Diff (04/21/17 07:16) Comprehensive Metabolic Panel (04/21/17 07:16) B-Type Natriuretic Peptide (04/21/17 07:16) Ckmb (Isoenzyme) Profile (04/21/17 07:16) Troponin I (04/21/17 07:16) Arterial Blood Gas (Abg) (04/21/17 07:16) Urinalysis - C+S If Indicated (04/21/17 07:16) Iv Access Insert/Monitor (04/21/17 07:16) Electrocardiogram (04/21/17 07:16) Ecg Monitoring (04/21/17 07:16) Oximetry (04/21/17 07:16) Oxygen Administration (04/21/17 07:16) Chest, Single Ap (04/21/17 07:16) Sodium Chloride 0.9% Flush (Ns Flush) (04/21/17 07:30) Methylprednisolone So Succ Inj (Solumedr (04/21/17 07:30) Albuterol-Ipratropium Neb (Duoneb Neb) (04/21/17 07:30) Albuterol Neb (Albuterol Neb) (04/21/17 07:30) Lorazepam Inj (Ativan Inj) (04/21/17 08:00) CKMB (04/21/17 07:20) CKMB% (04/21/17 07:20) Arterial Blood Gas (Abg) (04/21/17 09:13) Arterial Blood Gas (Abg) (04/21/17 11:11) Ckmb (Isoenzyme) Profile (04/21/17 12:04) Troponin I (04/21/17 12:04) Admit Order (Ed Use Only) (04/21/17 12:21) Labs Laboratory Tests Test 04/21/17 04/21/17 04/21/17 04/21/17 07:20 07:37 09:57 11:50 White Blood Count 15.3 TH/MM3 Red Blood Count 4.86 MIL/MM3 Hemoglobin 15.3 GM/DL Hematocrit 44.8 % Mean Corpuscular Volume 92.2 FL Mean Corpuscular Hemoglobin 31.5 PG Mean Corpuscular Hemoglobin 34.2 % Concent Red Cell Distribution Width 12.2 % Platelet Count 345 TH/MM3 Mean Platelet Volume 8.5 FL Neutrophils (%) (Auto) 74.2 % Lymphocytes (%) (Auto) 16.7 % Monocytes (%) (Auto) 7.7 % Eosinophils (%) (Auto) 0.3 % Basophils (%) (Auto) 1.1 % Neutrophils # (Auto) 11.3 TH/MM3 Lymphocytes # (Auto) 2.6 TH/MM3 Monocytes # (Auto) 1.2 TH/MM3 Eosinophils # (Auto) 0.0 TH/MM3 Basophils # (Auto) 0.2 TH/MM3 CBC Comment DIFF FINAL Differential Comment Sodium Level 137 MEQ/L Potassium Level 4.6 MEQ/L Chloride Level 104 MEQ/L Carbon Dioxide Level 25.3 MEQ/L Anion Gap 8 MEQ/L Blood Urea Nitrogen 45 MG/DL Creatinine 2.13 MG/DL Estimat Glomerular Filtration 24 ML/MIN Rate Random Glucose 110 MG/DL Calcium Level 9.2 MG/DL Total Bilirubin 0.3 MG/DL Aspartate Amino Transf 34 U/L (AST/SGOT) Alanine Aminotransferase 39 U/L (ALT/SGPT) Alkaline Phosphatase 66 U/L Total Creatine Kinase 131 U/L Creatine Kinase MB 3.7 NG/ML Troponin I 0.08 NG/ML B-Type Natriuretic Peptide 130 PG/ML Total Protein 8.5 GM/DL Albumin 3.6 GM/DL Blood Gas Puncture Site RT RADIAL RT RADIAL RT RADIAL Blood Gas Patient Temperature 98.6 98.6 98.6 Blood Gas HCO3 27 mmol/L 25 mmol/L 25 mmol/L Blood Gas Base Excess 0.0 mmol/L 0.0 mmol/L 0.1 mmol/L Blood Gas Oxygen Saturation 81 % 94 % 92 % Arterial Blood pH 7.25 7.32 7.34 Arterial Blood Partial 63 mmHg 50 mmHg 48 mmHg Pressure CO2 Arterial Blood Partial 54 mmHG 90 mmHG 78 mmHG Pressure O2 Arterial Blood Oxygen Content 17.1 Vol % 19.8 Vol % 19.1 Vol % Arterial Blood 2.8 % 2.3 % 1.9 % Carboxyhemoglobin Arterial Blood Methemoglobin 0.9 % 0.8 % 0.9 % Blood Gas Hemoglobin 15.1 G/DL 14.9 G/DL 14.7 G/DL Blood Gas Inspired Oxygen 21 % 40 % Oxygen Delivery Device BiPAP NASAL CANNULA Blood Gas Ventilator Setting [id number] Blood Gas Liter Flow 4 L/M MDM Medical Decision Making Medical Screen Exam Complete: Yes Emergency Medical Condition: Yes Interpretation(s) Last 24 hours Impressions Chest X-Ray 04/21/17 0716 Signed Impressions: Service Date/Time: Friday, April 21, 2017 07:28 - CONCLUSION: No acute cardiopulmonary abnormality is identified. Darshan Hartman MD Differential Diagnosis COPD exacerbation versus ACS versus pneumonia versus pulmonary embolism Narrative Course 52-year-old female presents today with complaints of severe shortness of breath. Patient's history of COPD. The patient's oxygen level was in the 80s on arrival. She was placed on BiPAP secondary to her blood gas showing a pH of 7.119 she was given 3 nebulizer treatments of albuterol in the first with Atrovent. She's also given 125 mg of Solu-Medrol. After 4 hours on BiPAP, we repeated her gas on 4 L of nasal cannula. PH is increased to 7.337. PCO2 is 48 and PO2 78. She had 92% saturations. Her troponin was elevated at 0.09. She also has chronic kidney disease with a creatinine above 2. Case was discussed with Dr. Gabriel Scott, [facility], who agreed to admit the patient to his service. The patient be admitted to the CICU given her elevated troponin and respiratory status. Critical Care Narrative Aggregate critical care time was 60 minutes. Time to perform other separately billable procedures was not included in the critical care time. My time did not include minutes spent treating any other patients simultaneously or on activities that did not directly contribute to the patient's treatment. The services I provided to this patient were to treat and/or prevent clinically significant deterioration that could result in: I provided critical care services requiring my management, as noted below: Chart data review, documentation time, medication orders and management, vital sign assessments/reviewing monitor data, ordering and reviewing lab tests, ordering and interpreting/reviewing x-rays and diagnostic studies, care of the patient and discussion of the patient with the admitting physicians. Diagnosis Primary Impression: COPD exacerbation Additional Impressions: Elevated troponin Chronic kidney disease Admitting Information Admitting Physician Requests: Admit Dominguez Gaona MD April 21, 2017 07:22
[2017-04-21] MEDS ORDERED: methylPREDNISolone SOD SUCC 125 MG/2 ML VIAL IVP ONE (07:30)
[2017-04-21] MEDS ORDERED: SODIUM CHLORIDE 0.9% FLUSH 10 ML FLUSH IVF PRN (07:30)
[2017-04-21] MEDS ORDERED: RESP: ALBUTEROL 2.5 MG/IPRATROPIUM 0.5 MG NEB (SCH) INH ONE (07:30)
--- NOTE | 2017-04-21 07:37 | RADRPT ---
EXAM DATE/TIME: 04/21/2017 07:28 [facility] COMPARISON: CHEST SINGLE AP, April 19, 2017, 16:27. INDICATIONS : Short of breath. MEDICAL HISTORY : None. SURGICAL HISTORY : None. ENCOUNTER: Initial ACUITY: 1 day PAIN SCORE: 6/10 LOCATION: Bilateral chest FINDINGS: Portable AP view of the chest demonstrates a normal-sized cardiac silhouette. No effusion, consolidat ion, or pneumothorax is visualized. The bones and soft tissues demonstrate no acute abnormality. CONCLUSION: No acute cardiopulmonary abnormality is identified. Darshan Hartman MD on April 21, 2017 at 7:35 Board Certified Radiologist. This report was verified electronically.
[2017-04-21 07:39] LABS: AUTOMATED NEUTROPHIL # 11.3 TH/MM3 (1.8-7.7); BASOPHIL # 0.2 TH/MM3 (0-0.2); BASOPHIL % 1.1 % (0.0-2.0); EOSINOPHIL % 0.3 % (0.0-4.0); HEMATOCRIT 44.8 % (35.0-46.0); HEMO FLAGS DIFF FINAL; LYMPH % 16.7 % (9.0-44.0); LYMPHOCYTE # 2.6 TH/MM3 (1.0-4.8); MEAN CELL VOLUME 92.2 FL (80.0-100.0); MEAN CORPUSCULAR HEMOGLOBIN 31.5 PG (27.0-34.0); MEAN CORPUSCULAR HGB CONC 34.2 % (32.0-36.0); MONO % 7.7 % (0.0-8.0); NEUT % 74.2 % (16.0-70.0); PLATELET COUNT 345 TH/MM3 (150-450); RED BLOOD COUNT 4.86 MIL/MM3 (4.00-5.30); RED CELL DISTRIBUTION WIDTH 12.2 % (11.6-17.2); WHITE BLOOD COUNT 15.3 TH/MM3 (4.0-11.0)
[2017-04-21] MEDS: RESP: ALBUTEROL 2.5 MG/3 ML NEB (SCH) INH (07:45)
[2017-04-21 07:52] LABS: BLOOD GAS CARBOXYHEMOGLOBIN 2.8 % (0-4); BLOOD GAS HCO3 27 mmol/L (22-26); BLOOD GAS METHEMOGLOBIN 0.9 % (0-2); BLOOD GAS O2 HGB SATURATION 81 % (90-100); BLOOD GAS OXYGEN CONTENT 17.1 Vol % (12.0-20.0); BLOOD GAS PCO2 63 mmHg (38-42); BLOOD GAS PO2 54 mmHG (61-120); BLOOD GAS TOTAL HGB 15.1 G/DL (12.0-16.0); CRITICAL VALUE YES; DRAW SITE RT RADIAL; FIO2 21 %; NUMBER OF ARTERIAL PUNCTURES 1; STAT YES; TEMP CORR TO 98.6; ULNAR PULSE PRESENT
[2017-04-21] MEDS ORDERED: LORazepam 2 MG/ML VIAL IV PUSH ONE (08:00)
[2017-04-21 08:17] LABS: ALKALINE PHOSPHATASE 66 U/L (45-117); ALT (GPT) 39 U/L (10-53); ANION GAP 8 MEQ/L (5-15); AST (GOT) 34 U/L (15-37); BICARBONATE 25.3 MEQ/L (21.0-32.0); BLOOD UREA NITROGEN 45 MG/DL (7-18); CHLORIDE 104 MEQ/L (98-107); CREATINE KINASE 131 U/L (26-192); GLOMERULAR FILTRATION RATE 24 ML/MIN (>89); SODIUM (NA) 137 MEQ/L (136-145); TOTAL BILIRUBIN ADULT 0.3 MG/DL (0.2-1.0)
[2017-04-21 08:18] LABS: POTASSIUM 4.6 MEQ/L (3.5-5.1)
[2017-04-21 08:30] LABS: CKMB 3.7 NG/ML (0.5-3.6)
[2017-04-21 10:09] LABS: BLOOD GAS CARBOXYHEMOGLOBIN 2.3 % (0-4); BLOOD GAS HCO3 25 mmol/L (22-26); BLOOD GAS METHEMOGLOBIN 0.8 % (0-2); BLOOD GAS O2 HGB SATURATION 94 % (90-100); BLOOD GAS OXYGEN CONTENT 19.8 Vol % (12.0-20.0); BLOOD GAS PCO2 50 mmHg (38-42); BLOOD GAS PO2 90 mmHG (61-120); BLOOD GAS TOTAL HGB 14.9 G/DL (12.0-16.0); CRITICAL VALUE NO; DRAW SITE RT RADIAL; FIO2 40 %; NUMBER OF ARTERIAL PUNCTURES 1; OXYGEN DEVICE BiPAP; STAT YES; TEMP CORR TO 98.6; ULNAR PULSE PRESENT; VENT SETTINGS IPAP12 EPAP5
[2017-04-21 11:57] LABS: BLOOD GAS BASE EXCESS 0.1 mmol/L (-2-2); BLOOD GAS CARBOXYHEMOGLOBIN 1.9 % (0-4); BLOOD GAS HCO3 25 mmol/L (22-26); BLOOD GAS METHEMOGLOBIN 0.9 % (0-2); BLOOD GAS O2 HGB SATURATION 92 % (90-100); BLOOD GAS OXYGEN CONTENT 19.1 Vol % (12.0-20.0); BLOOD GAS PCO2 48 mmHg (38-42); BLOOD GAS PO2 78 mmHG (61-120); BLOOD GAS TOTAL HGB 14.7 G/DL (12.0-16.0); CRITICAL VALUE NO; DRAW SITE RT RADIAL; LITER FLOW 4 L/M; NUMBER OF ARTERIAL PUNCTURES 1; OXYGEN DEVICE NASAL CANNULA; STAT YES; TEMP CORR TO 98.6; ULNAR PULSE PRESENT
--- NOTE | 2017-04-21 12:38 | HHI.HP ---
[facility] No Primary Care Physician Admission Diagnosis COPD exacerbation, elevated cardiac enzymes, Chronic kidney disease Diagnoses: (1) Acute chronic obstructive pulmonary disease with respiratory failure (2) Decompensated COPD with exacerbation (chronic obstructive pulmonary disease) (3) Elevated troponin Chief Complaint: Shortness of breath Travel History International Travel<30 Days: No Contact w/Intl Traveler <30 Da: No Traveled to Known Affected Are: No History of Present Illness 52 year-old female with a history of COPD, hypertension drove herself to the hospital for evaluation of worsening shortness of breath and extensive nonproductive cough despite treatment with ProAir prescribed to her 2 days ago from a local urgent care. Patient reports that over the past year she's been having difficulty breathing despite following with her primary care in [place] for treatment of COPD. She reports were couple rounds of antibiotics lately. He currently denies any chest pain. She has no febrile episode. On admission patient had Initial ABG with pH 7.25 pCO2 63 pO2 54. Review of Systems Except as stated in HPI: all other systems reviewed are Neg Past Family Social History Past Medical History COPD: Yes Coronary Artery Disease: Yes Hypertension: Yes Respiratory: Yes (COPD) Renal Failure: Yes (In Coma for 3 days following kidney failure) Thyroid Disease: Yes Past Surgical History Back fusion Reported Medications Zithromax Z-Mikhail (Azithromycin) 250 Mg Dspk 250 Mg PO DIRECTED 500 MG (2 tabs) day 1, then 1 tab days 2-5. Prednisone 50 Mg Tab 50 Mg PO DAILY Proair Respiclick Inh (Albuterol Sulfate) 90 Mcg/Act Aerp 2 Puff INH Q6H PRN Levothyroxine (Levothyroxine Sodium) 100 Mcg Tab 100 Mcg PO DAILY Nifedipine ER (Nifedipine) 90 Mg Tab 90 Mg PO DAILY Spironolactone 25 Mg Tab 25 Mg PO BIDPC Carvedilol 12.5 Mg Tab 12.5 Mg PO BID Allergies: Coded Allergies: Penicillin (Verified Allergy, Severe, 04/21/17) Sulfa (Verified Allergy, Severe, 04/21/17) Family History father with heart disease, diabetes Mother with COPD Social History Alcohol Use: Yes (Socially) Tobacco Use: No Substance Use: No Physical Exam Vital Signs Vital Signs Date Time Temp Pulse Resp B/P Pulse Ox O2 Delivery O2 Flow Rate FiO2 04/21/17 11:30 96 BiPAP 04/21/17 11:00 58 16 126/83 97 Nasal Cannula 2 04/21/17 10:00 62 19 132/97 99 BiPAP 04/21/17 09:00 60 28 130/85 99 BiPAP 40 04/21/17 08:15 94 40 04/21/17 08:00 96 BiPAP 40 04/21/17 07:23 Nasal Cannula 2 04/21/17 07:22 92 04/21/17 07:21 Nasal Cannula 2 04/21/17 07:04 63 26 132/90 97 Nasal Cannula 2 04/21/17 06:59 75 88 04/21/17 06:50 98.2 79 22 140/84 90 Room Air Physical Exam GENERAL: This is a well-nourished, well-developed patient, in no apparent distress. SKIN: No rashes, ecchymoses or lesions. Cool and dry. HEAD: Atraumatic. Normocephalic. No temporal or scalp tenderness. EYES: Pupils equal round and reactive. Extraocular motions intact. No scleral icterus. No injection or drainage. ENT: Nose without bleeding, purulent drainage or septal hematoma. Throat without erythema, tonsillar hypertrophy or exudate. Uvula midline. Airway patent. NECK: Trachea midline. No JVD or lymphadenopathy. Supple, nontender, no meningeal signs. CARDIOVASCULAR: Regular rate and rhythm without murmurs, gallops, or rubs. RESPIRATORY: Clear to auscultation. Breath sounds equal bilaterally. No wheezes , rales, or rhonchi. GASTROINTESTINAL: Abdomen soft, non-tender, nondistended. No hepato-splenomegaly , or palpable masses. No guarding. MUSCULOSKELETAL: Extremities without clubbing, cyanosis, or edema. No joint tenderness, effusion, or edema noted. No calf tenderness. Negative Homans sign bilaterally. NEUROLOGICAL: Awake and alert. Cranial nerves II through XII intact. Motor and sensory grossly within normal limits. Five out of 5 muscle strength in all muscle groups. Normal speech. Laboratory Laboratory Tests Test 04/21/17 04/21/17 04/21/17 04/21/17 07:20 07:37 09:57 11:50 White Blood Count 15.3 Red Blood Count 4.86 Hemoglobin 15.3 Hematocrit 44.8 Mean Corpuscular Volume 92.2 Mean Corpuscular Hemoglobin 31.5 Mean Corpuscular Hemoglobin 34.2 Concent Red Cell Distribution Width 12.2 Platelet Count 345 Mean Platelet Volume 8.5 Neutrophils (%) (Auto) 74.2 Lymphocytes (%) (Auto) 16.7 Monocytes (%) (Auto) 7.7 Eosinophils (%) (Auto) 0.3 Basophils (%) (Auto) 1.1 Neutrophils # (Auto) 11.3 Lymphocytes # (Auto) 2.6 Monocytes # (Auto) 1.2 Eosinophils # (Auto) 0.0 Basophils # (Auto) 0.2 CBC Comment DIFF FINAL Differential Comment Sodium Level 137 Potassium Level 4.6 Chloride Level 104 Carbon Dioxide Level 25.3 Anion Gap 8 Blood Urea Nitrogen 45 Creatinine 2.13 Estimat Glomerular Filtration 24 Rate Random Glucose 110 Calcium Level 9.2 Total Bilirubin 0.3 Aspartate Amino Transf 34 (AST/SGOT) Alanine Aminotransferase 39 (ALT/SGPT) Alkaline Phosphatase 66 Total Creatine Kinase 131 Creatine Kinase MB 3.7 Troponin I 0.08 B-Type Natriuretic Peptide 130 Total Protein 8.5 Albumin 3.6 Blood Gas Puncture Site RT RADIAL RT RADIAL RT RADIAL Blood Gas Patient Temperature 98.6 98.6 98.6 Blood Gas HCO3 27 25 25 Blood Gas Base Excess 0.0 0.0 0.1 Blood Gas Oxygen Saturation 81 94 92 Arterial Blood pH 7.25 7.32 7.34 Arterial Blood Partial 63 50 48 Pressure CO2 Arterial Blood Partial 54 90 78 Pressure O2 Arterial Blood Oxygen Content 17.1 19.8 19.1 Arterial Blood 2.8 2.3 1.9 Carboxyhemoglobin Arterial Blood Methemoglobin 0.9 0.8 0.9 Blood Gas Hemoglobin 15.1 14.9 14.7 Blood Gas Inspired Oxygen 21 40 Oxygen Delivery Device BiPAP NASAL CANNULA Blood Gas Ventilator Setting [id number] Blood Gas Liter Flow 4 Result Diagram: 04/21/1771904/21/17719 Imaging Last Impressions Chest X-Ray 04/21/17715 Signed Impressions: Service Date/Time: Friday, April 21, 2017 07:28 - CONCLUSION: No acute cardiopulmonary abnormality is identified. Darshan Hartman MD Assessment and Plan Problem List: (1) Decompensated COPD with exacerbation (chronic obstructive pulmonary disease) ICD Code: J44.1 Status: Acute (2) Acute chronic obstructive pulmonary disease with respiratory failure ICD Code: J96.00 Status: Acute (3) Chronic kidney disease ICD Code: N18.9 Status: Acute (4) Elevated troponin ICD Code: R74.8 Status: Acute Assessment and Plan 52-year-old female with Acute chronic obstructive pulmonary disease with respiratory failure Decompensated COPD with exacerbation -Chest x-ray noted a review by me with No acute cardiopulmonary abnormality is identified. -Initial ABG with pH 7.25 pCO2 63 pO2 54 and then s/p tx with BIPAP now ABG with pH 7.34 pCO2 48 pO2 78 -Status post Solu-Medrol 25 mg IV 1 in ED -Starts Solu-Medrol 40 mg IV every 8 hour, scheduled and when necessary bronchodilator,Symbicort, Spiriva, azithromycin, Mucinex and maintain oxygen saturation above 88-90%. start spirometry at bedside -BiPAP when necessary -Pulmonary medicine consultation Elevated cardiac enzyme -Likely secondary to decompensated COPD with exacerbation -ACS rule out per protocol with serial cardiac enzyme -Check 2-D echo -Nitroglycerin when necessary Chronic kidney disease Patient currently at her baseline, continue to monitor BUN and creatinine and avoid all nephrotoxic drugs Hypertension Resume oral hypertensive medication Hypothyroidism Resume Synthroid DVT prophylaxis: Bilateral SCDs Code Status Full code Discussed Condition With Patient, ED physician Physician Certification 2 Midnight Certification Type: Admission for Inpatient Services Order for Inpatient Services The services are ordered in accordance with Medicare regulations or non- Medicare payer requirements, as applicable. In the case of services not specified as inpatient-only, they are appropriately provided as inpatient services in accordance with the 2-midnight benchmark. Estimated LOS (days): 2 days is the estimated time the patient will need to remain in the hospital, assuming treatment plan goals are met and no additional complications. Post-Hospital Plan: Not yet determined Gabriel Scott MD April 21, 2017 12:38
[2017-04-21] MEDS ORDERED: NALOXONE HCL 0.4 MG/ML AMP IV PRN (12:45)
[2017-04-21] MEDS ORDERED: ONDANSETRON HCL 4 MG/2 ML VIAL IVP PRN (12:45)
[2017-04-21] MEDS ORDERED: ACETAMINOPHEN 325 MG TAB PO PRN (12:45)
[2017-04-21] MEDS ORDERED: SODIUM CHLORIDE 0.9% FLUSH 10 ML FLUSH IV FLUSH PRN (12:45)
[2017-04-21] MEDS ORDERED: NITROGLYCERIN 0.4 MG SL 25 TABS/BTL SL PRN (13:00)
[2017-04-21 13:19] LABS: CREATINE KINASE 109 U/L (26-192)
[2017-04-21 13:39] LABS: CKMB 2.6 NG/ML (0.5-3.6)
[2017-04-21] MEDS: methylPREDNISolone SOD SUCC 125 MG/2 ML VIAL IVP SCH ×2 (14:33→20:57)
[2017-04-21] MEDS: RESP: ALBUTEROL 2.5 MG/IPRATROPIUM 0.5 MG NEB (SCH) NEB ×2 (15:10→21:08)
[2017-04-21] MEDS: AZITHROMYCIN INJ 500 MG in SODIUM CHLOR 0.9% 250 ML INJ 250 ML IV SCH (15:33)
[2017-04-21] MEDS: SPIRONOLACTONE 25 MG TAB PO SCH (18:09)
--- NOTE | 2017-04-21 18:19 | MB ---
cc: MARQUEZ NOEL DATE OF CONSULTATION: 04/21/2017. REASON FOR CONSULTATION: COPD exacerbation. REQUESTING PHYSICIAN: Dr. Scott. HISTORY OF PRESENT ILLNESS: Ms. Arzola is a 52-year-old female with longstanding history of COPD. She moved from [place]. She says that she has a history of high blood pressure and one time she was in a coma for ten days and now she says that her primary care doctor, Dr. Merlin Villarreal increased her carvedilol from 6.25 to 12.5 milligrams and that has made her symptoms worse. Because of the worsening of symptoms, she was brought to the emergency room. She was evaluated in the emergency room. Her chest x-ray shows she has no acute cardiopulmonary process. Her blood gas showed a pH of 7.25, pC02 of 63, p02 of 54, bicarbonate 27, saturation 81% on room air. The patient was put on BiPAP. She improved with BiPAP. Currently she is down to 4 liters nasal cannula. Repeat blood gas showed pH 7.34, pC02 48, p02 78, bicarbonate 25. Her CBC showed white blood cell count 15.3, hemoglobin 15, hematocrit 44.8, MCV 92, platelet count 345,000. Sodium 137, potassium 4.6, chloride 104, carbon dioxide 25, BUN 45, creatinine 2.13. PAST MEDICAL HISTORY: Past medical history is significant for: 1. History of COPD. 2. Hypertension. 3. Coronary artery disease. 4. Kidney disease. 5. Thyroid disease. 6. History of back fusion. MEDICATIONS: She is currently takin. Nifedipine 90 milligrams a day. 2. Spiriva once a day. 3. Synthroid 100 micrograms a day. 4. Coreg 12.5 milligrams twice a day. 5. Symbicort 160/4.5 two puffs twice a day. 6. Mucinex 600 milligrams twice a day. 7. Aldactone 25 milligrams. 8. Solu-Medrol 40 milligrams q. 8 hours. 9. Albuterol and Atrovent nebulizer. 10. Zithromax 500 milligrams a day. ALLERGIES:1 1. PENICILLIN. 2. SULFA. SOCIAL HISTORY: She is single. She has a long history of smoking and continues to smoke one pack of cigarettes a day. Denies any drug use. 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 She has not worked for a long period. FAMILY HISTORY: She has one daughter who lives in [place]. The patient has now moved here to live with her mother. REVIEW OF SYSTEMS: Denies any weight loss. No headache or dizziness. No malignancy. No DVT or pulmonary embolism. PHYSICAL EXAMINATION: GENERAL: Thin-built anxious female mild short of breath. VITAL SIGNS: Blood pressure 134/90, heart rate 69, respirations HEAD, EYES, EARS, NOSE, THROAT: Pupils are equal and reactive. Oral mucosa and nasal mucosa are normal. NECK: The neck is supple. JVP not raised. CHEST: She has bilateral expiratory rhonchi. CARDIOVASCULAR: S1 and S2 normal. ABDOMEN: Abdomen soft and nondistended. Bowel sounds are present. IMPRESSION: 1. COPD exacerbation. 2. Bronchitis. 3. Nicotine use. 4. Hypertension. 5. Renal insufficiency. 6. History of coronary artery disease. PLAN: I discussed with the patient and advised her strongly to quit smoking. 1. Will give her aerosol treatment with albuterol and Atrovent. 2. IV Solu-Medrol. 3. Continue antibiotics. 4. Supplement her oxygen. 5. If she gets worse or more lethargic, will put her on BiPAP. 6. Once she gets better, will check her pulmonary function studies. Further treatment will depend on the course in the hospital. Thank you, Dr. Scott, for this consult. MD CATE Parks/DANTE /4:54 PM /6:05 PM JASMEET
[2017-04-21] MEDS: BUDESONIDE-FORMOTEROL 160/4.5 MCG INHALER INH SCH (20:54)
[2017-04-21] MEDS: CARVEDILOL 12.5 MG TAB PO SCH (20:56)
[2017-04-21] MEDS: SODIUM CHLORIDE 0.9% FLUSH 10 ML FLUSH IV FLUSH SCH (20:56)
[2017-04-21] MEDS: guaiFENesin E.R. 600 MG TAB PO SCH (20:56)
[2017-04-22] VITALS (11 sets, daily range): BP systolic 112–152; BP diastolic 64–100; PULSE 50–71; RESP 18–20; TEMP 97.2–98.1; O2SAT 93–98
[2017-04-22] MEDS: ACETAMINOPHEN 325 MG TAB PO PRN ×2 (04:15→15:39)
[2017-04-22 04:51] LABS: ANION GAP 11 MEQ/L (5-15); BICARBONATE 26.2 MEQ/L (21.0-32.0); BLOOD UREA NITROGEN 48 MG/DL (7-18); CHLORIDE 104 MEQ/L (98-107); POTASSIUM 4.4 MEQ/L (3.5-5.1); SODIUM (NA) 141 MEQ/L (136-145)
[2017-04-22 04:54] LABS: ALKALINE PHOSPHATASE 50 U/L (45-117); ALT (GPT) 26 U/L (10-53); AST (GOT) 14 U/L (15-37); GLOMERULAR FILTRATION RATE 24 ML/MIN (>89); TOTAL BILIRUBIN ADULT 0.3 MG/DL (0.2-1.0)
[2017-04-22] MEDS: LEVOTHYROXINE SODIUM 100 MCG TAB PO SCH (06:01)
[2017-04-22] MEDS: methylPREDNISolone SOD SUCC 125 MG/2 ML VIAL IVP SCH ×3 (06:01→20:49)
[2017-04-22] MEDS: ACETAMINOPHEN/HYDROcodone 325 MG/5 MG TAB PO PRN ×4 (06:18→20:46)
[2017-04-22] MEDS: BUDESONIDE-FORMOTEROL 160/4.5 MCG INHALER INH SCH ×2 (08:26→20:34)
[2017-04-22] MEDS: guaiFENesin E.R. 600 MG TAB PO SCH ×2 (08:26→20:34)
[2017-04-22] MEDS: TIOTROPIUM BROMIDE 18 MCG INH INH SCH (08:26)
[2017-04-22] MEDS: SPIRONOLACTONE 25 MG TAB PO SCH ×2 (08:26→17:41)
[2017-04-22] MEDS: SODIUM CHLORIDE 0.9% FLUSH 10 ML FLUSH IV FLUSH SCH ×2 (08:26→20:34)
[2017-04-22] MEDS: CARVEDILOL 12.5 MG TAB PO SCH ×2 (08:29→20:34)
[2017-04-22] MEDS: NIFEdipine 90 MG SUSTAINED RELEASE TAB PO SCH (09:40)
[2017-04-22] MEDS: RESP: ALBUTEROL 2.5 MG/IPRATROPIUM 0.5 MG NEB (SCH) NEB ×3 (10:05→21:05)
--- NOTE | 2017-04-22 12:57 | EC ---
Study Study Date:04/22/2017 STUDY CONCLUSIONS SUMMARY - Left ventricle: The cavity size was normal. MIld basal septal prominence without evidence for left ventricular outflow tract gradient or systolic motion of the anterior mitral leaflet. Systolic function was normal. The estimated ejection fraction was in the range of 55% to 60%. Possible akinesis of the mid to distal septum. - Mitral valve: Trace regurgitation. If LV function is below 40, please consider prescribing an ACEI or ARB or document rationale for non-use. PROCEDURE DATA STUDY STATUS: Elective. Study completion: The patient tolerated the procedure well. Transthoracic echocardiography. M-mode, complete 2D, complete spectral Doppler, and color Doppler. Height: Height: 65in. Weight: Weight: 122.7lb. Body mass index: BMI: 20.5kg/m^2. Body surface area: BSA: 1.61m^2. Patient status: Inpatient. CARDIAC ANATOMY LEFT VENTRICLE: The cavity size was normal. MIld basal septal prominence without evidence for left ventricular outflow tract gradient or systolic motion of the anterior mitral leaflet. Systolic function was normal. The estimated ejection fraction was in the range of 55% to 60%. Possible akinesis of the mid to distal septum. AORTIC VALVE: Trileaflet; normal thickness leaflets. Doppler: Transvalvular velocity was within the normal range. There was no stenosis. No regurgitation. AORTA: Aortic root: The aortic root was normal in size. MITRAL VALVE: Structurally normal valve. Doppler: Transvalvular velocity was within the normal range. There was no evidence for stenosis. Trace regurgitation. LEFT ATRIUM: The atrium was normal in size. RIGHT VENTRICLE: The cavity size was normal. Wall thickness was normal. PULMONIC VALVE: Doppler: Transvalvular velocity was within the normal range. There was no evidence for stenosis. No regurgitation. TRICUSPID VALVE: Structurally normal valve. Doppler: Transvalvular velocity was within the normal range. No regurgitation. PULMONARY ARTERY: The main pulmonary artery was normal-sized. Systolic pressure was within the normal range. RIGHT ATRIUM: The atrium was normal in size. PERICARDIUM: There was no pericardial effusion. SYSTEMIC VEINS: Inferior vena cava: The vessel was normal in size. Patient weight: 122.7lb _Ejection fraction:_ 65-75% _Fractional shortening:_ 32% up to 5Kg 5-11.5Kg 11.6-22.9Kg 23-45Kg 45-57Kg Aortic Root 7-13 <17 13-22 17-27 17-27 LA diam 6-13 <23 24-38 33-47 37-40 RVID 10-17 7-15 7-15 7-18 8-17 LVIDd 12-22 <32 24-38 33-47 37-40 LVPW 2-4 3-6 5-7 6-8 7-8 IVS 2-4 3-6 5-7 6-8 7-8 BASIC MEASUREMENTS ADULT NORMAL Left ventricle LV internal dimension, ED, chordal level, 49.4 mm 43-52 PLAX LV internal dimension, ES, chordal level, 35.2 mm 23-38 PLAX Fractional shortening, chordal level, PLAX *29 % >29 LV posterior wall thickness, ED 7.85 mm IVS/LVPW ratio, ED 1.08 <1.3 Ventricular septum Septal thickness, ED 8.46 mm Aortic valve Leaflet separation 23 mm 15-26 Left atrium Anterior-posterior dimension 31 mm Anterior-posterior dimension index 1.93 cm/m^2 <2.2 Right ventricle RV internal dimension, ED, PLAX 20.3 mm 19-38 BASIC MEASUREMENTS ADULT NORMAL Aortic valve Leaflet separation 23 mm 15-26 Aorta Root diameter, ED 33 mm 20-37 DOPPLER MEASUREMENTS ADULT NORMAL Aortic valve Peak velocity, S 121 cm/s Mitral valve Peak E-wave velocity 64.2 cm/s Peak A-wave velocity 48.4 cm/s Peak E/A ratio 1.3 Tricuspid valve Regurgitant peak velocity 133 cm/s Peak RV-RA gradient, S 7 mm Hg Maximal regurgitant velocity 133 cm/s LEGEND: Mean values are shown as u=mean value. Asterisk (*) mcadams values outside specified normal range. Prepared and signed by Marco Jim [id number]
--- NOTE | 2017-04-22 13:04 | HHI.PR ---
Subjective Remarks Follow-up decompensated COPD with respiratory failure 04/22/17-patient seen and examined, now with improving respirator and denies any significant shortness of breath. Objective Vitals Vital Signs Date Time Temp Pulse Resp B/P Pulse Ox O2 Delivery O2 Flow Rate FiO2 04/22/17 11:00 58 04/22/17 11:00 98.1 71 18 152/93 93 04/22/17 10:06 95 Nasal Cannula 3.00 04/22/17 07:00 97.6 52 18 112/64 97 04/22/17 07:00 54 04/22/17 05:15 20 04/22/17 04:00 51 04/22/17 04:00 97.2 50 20 150/100 96 04/22/17 03:10 51 04/22/17 00:00 97.2 56 20 140/87 98 04/22/17 00:00 55 04/21/17 22:00 18 04/21/17 21:11 96 Nasal Cannula 4.00 04/21/17 20:00 98.2 61 20 141/90 97 04/21/17 19:10 64 04/21/17 15:00 98.1 72 20 136/90 97 04/21/17 15:00 67 04/21/17 14:45 97 Nasal Cannula 4.00 04/21/17 14:00 69 04/21/17 14:00 98.1 65 20 134/90 95 I/O 04/21/17 04/21/17 04/21/17 04/22/17 04/22/17 04/22/17 07:00 15:00 23:00 07:00 15:00 23:00 Intake Total 490 ml 720 ml Output Total 700 ml 650 ml Balance -210 ml 70 ml Intake Oral 240 ml 720 ml IV Total 250 ml Output Urine Total 700 ml 650 ml # Bowel Movements 0 0 Result Diagram: 04/21/1720 04/22/17 0350 Imaging Last Impressions Chest X-Ray 04/21/17 0716 Signed Impressions: Service Date/Time: Friday, April 21, 2017 07:28 - CONCLUSION: No acute cardiopulmonary abnormality is identified. Darshan Hartman MD Objective Remarks GENERAL: NAD SKIN: Warm and dry. HEAD: Normocephalic. EYES: No scleral icterus. No injection or drainage. NECK: Supple, trachea midline. No JVD or lymphadenopathy. CARDIOVASCULAR: Regular rate and rhythm without murmurs, gallops, or rubs. RESPIRATORY: Breath sounds decreased bilaterally. No accessory muscle use. GASTROINTESTINAL: Abdomen soft, non-tender, nondistended. MUSCULOSKELETAL: No cyanosis, or edema. BACK: Nontender without obvious deformity. No CVA tenderness. A/P Problem List: (1) Decompensated COPD with exacerbation (chronic obstructive pulmonary disease) ICD Code: J44.1 Status: Acute (2) Acute chronic obstructive pulmonary disease with respiratory failure ICD Code: J96.00 Status: Acute (3) Chronic kidney disease ICD Code: N18.9 Status: Acute (4) Elevated troponin ICD Code: R74.8 Status: Acute Assessment and Plan 52-year-old female with Acute chronic obstructive pulmonary disease with respiratory failure Decompensated COPD with exacerbation -Chest x-ray with No acute cardiopulmonary abnormality is identified. -Continue Solu-Medrol 40 mg IV every 8 hour, scheduled and when necessary bronchodilator,Symbicort, Spiriva, azithromycin, Mucinex and maintain oxygen saturation above 88-90%. spirometry at bedside -BiPAP when necessary -Pulmonary medicine consultation appreciated Elevated cardiac enzyme -Likely secondary to decompensated COPD with exacerbation -ACS rule out per protocol with serial cardiac enzyme -2-D echo pending -Nitroglycerin when necessary Chronic kidney disease Patient currently at her baseline, continue to monitor BUN and creatinine and avoid all nephrotoxic drugs Check renal ultrasound, renal markers including C3, C4, SALO and consider nephrology consultation Hypertension Continue oral hypertensive medication Hypothyroidism Continue Synthroid DVT prophylaxis: Bilateral SCDs Gabriel Scott MD April 22, 2017 13:04
--- NOTE | 2017-04-22 14:17 | EKG ---
Date Performed: 04/21/2017 Time Performed: 07:16:24 PTAGE: 52 years EKG: Sinus rhythm POSSIBLE ANTERIOR MYOCARDIAL INFARCTION INFERIOR MYOCARDIAL INFARCTION ABNORMAL ECG PREVIOUS TRACING : 04/19/2017 16.01 Compared to previous tracing, there is some decrease in R f orce in V3 and V4. This may be due to lead placement. No ST elevation is seen in the prior tracing or this tracing in those leads. Otherwise, no significant change. DOCTOR: Arsenio Pace Interpretating Date/Time 04/22/2017 14:16:46
[2017-04-22] MEDS: AZITHROMYCIN INJ 500 MG in SODIUM CHLOR 0.9% 250 ML INJ 250 ML IV SCH (14:32)
--- NOTE | 2017-04-22 16:32 | RADRPT ---
EXAM DATE/TIME: 04/22/2017 15:01 [facility] COMPARISON: No previous studies available for comparison. INDICATIONS : Increased BUN/creatinine. MEDICAL HISTORY : Thyroid disease. HTN. Coronary artery disease. COPD. Renal failure. SURGICAL HISTORY : L5-S1 fusion. ENCOUNTER: Initial ACUITY: 1 day PAIN SCORE: 2/10 LOCATION: Bilateral flank MEASUREMENTS: RIGHT KIDNEY: 10.3 x 4.8 x 3.9 cm LEFT KIDNEY: 9.4 x 5.2 x 4.7 cm FINDINGS: RIGHT KIDNEY: Renal cortex is normal in thickness and echotexture. No hydronephrosis, stone, or mass. LEFT KIDNEY: Renal cortex is normal in thickness and echotexture. No hydronephrosis, stone, or mass. BLADDER: Within normal limits given the degree of distension. CONCLUSION: No acute disease. Andrews Morataya MD on April 22, 2017 at 16:29 Board Certified Radiologist. This report was verified electronically.
[2017-04-22] MEDS: RESP: ALBUTEROL 2.5 MG/IPRATROPIUM 0.5 MG NEB (PRN) NEB (23:39)
[2017-04-23] VITALS (19 sets, daily range): BP systolic 119–155; BP diastolic 78–96; PULSE 54–72; RESP 18–20; TEMP 97.4–98.5; O2SAT 90–95
[2017-04-23] MEDS: ACETAMINOPHEN/HYDROcodone 325 MG/5 MG TAB PO PRN ×4 (03:39→20:37)
[2017-04-23 04:42] LABS: AUTOMATED NEUTROPHIL # 8.9 TH/MM3 (1.8-7.7); BASOPHIL % 0.1 % (0.0-2.0); HEMATOCRIT 40.4 % (35.0-46.0); HEMO FLAGS DIFF FINAL; LYMPH % 7.7 % (9.0-44.0); LYMPHOCYTE # 0.8 TH/MM3 (1.0-4.8); MEAN CORPUSCULAR HEMOGLOBIN 31.6 PG (27.0-34.0); MEAN CORPUSCULAR HGB CONC 34.3 % (32.0-36.0); MONO % 2.6 % (0.0-8.0); NEUT % 89.6 % (16.0-70.0); PLATELET COUNT 268 TH/MM3 (150-450); RED BLOOD COUNT 4.39 MIL/MM3 (4.00-5.30); WHITE BLOOD COUNT 9.9 TH/MM3 (4.0-11.0)
[2017-04-23 04:59] LABS: BICARBONATE 27.2 MEQ/L (21.0-32.0); POTASSIUM 4.4 MEQ/L (3.5-5.1)
[2017-04-23] MEDS: methylPREDNISolone SOD SUCC 125 MG/2 ML VIAL IVP SCH ×3 (05:43→20:42)
[2017-04-23] MEDS: LEVOTHYROXINE SODIUM 100 MCG TAB PO SCH (05:43)
[2017-04-23] MEDS: RESP: ALBUTEROL 2.5 MG/IPRATROPIUM 0.5 MG NEB (SCH) NEB ×3 (07:42→21:12)
[2017-04-23] MEDS: SODIUM CHLOR 0.9% 1000 ML INJ 1,000 ML IV SCH ×2 (08:00→16:00)
[2017-04-23] MEDS: SODIUM CHLORIDE 0.9% FLUSH 10 ML FLUSH IV FLUSH SCH ×2 (08:20→20:41)
[2017-04-23] MEDS: BUDESONIDE-FORMOTEROL 160/4.5 MCG INHALER INH SCH ×2 (08:20→20:42)
[2017-04-23] MEDS: TIOTROPIUM BROMIDE 18 MCG INH INH SCH (08:20)
[2017-04-23] MEDS: SPIRONOLACTONE 25 MG TAB PO SCH ×2 (08:20→18:00)
[2017-04-23] MEDS: NIFEdipine 90 MG SUSTAINED RELEASE TAB PO SCH (08:20)
[2017-04-23] MEDS: CARVEDILOL 12.5 MG TAB PO SCH ×2 (08:21→20:39)
[2017-04-23] MEDS: guaiFENesin E.R. 600 MG TAB PO SCH ×2 (08:21→20:36)
--- NOTE | 2017-04-23 12:13 | HHI.PR ---
Subjective Remarks Follow-up decompensated COPD with respiratory failure 04/22/17-patient seen and examined, now with improving respirator and denies any significant shortness of breath. 04/23/17-patient seen and examined, and complains of right ear pains as well as back pain. Requesting "something" to sleep. Reported improvement or shortness of breath. Worsening renal indices Objective Vitals Vital Signs Date Time Temp Pulse Resp B/P Pulse Ox O2 Delivery O2 Flow Rate FiO2 04/23/17 11:00 97.7 55 18 155/96 95 04/23/17 11:00 56 04/23/17 07:44 95 Nasal Cannula 2.00 04/23/17 07:23 97.4 60 20 147/94 93 04/23/17 07:00 57 04/23/17 04:00 97.5 54 20 136/84 95 04/23/17 03:50 55 04/23/17 00:00 54 04/23/17 00:00 97.5 54 20 119/78 95 04/22/17 21:05 94 Nasal Cannula 2.00 04/22/17 20:00 98.0 61 20 141/81 93 04/22/17 19:00 60 04/22/17 15:49 95 2.00 04/22/17 15:00 66 04/22/17 15:00 97.8 70 18 136/90 93 I/O 04/22/17 04/22/17 04/22/17 04/23/17 04/23/17 04/23/17 07:00 15:00 23:00 07:00 15:00 23:00 Intake Total 720 ml 970 ml 720 ml 620 ml Output Total 650 ml 1000 ml 950 ml 200 ml Balance 70 ml -30 ml -230 ml 420 ml Intake Oral 720 ml 720 ml 720 ml 120 ml IV Total 250 ml 500 ml Output Urine Total 650 ml 1000 ml 950 ml 200 ml # Bowel Movements 0 0 0 Result Diagram: 04/23/17 0429 04/23/17 0429 Imaging Last Impressions Renal Ultrasound 04/22/17 0000 Signed Impressions: Service Date/Time: Saturday, April 22, 2017 15:01 - CONCLUSION: No acute disease. Andrews Morataya MD Chest X-Ray 04/21/17 0716 Signed Impressions: Service Date/Time: Friday, April 21, 2017 07:28 - CONCLUSION: No acute cardiopulmonary abnormality is identified. Darshan Hartman MD Objective Remarks GENERAL: NAD SKIN: Warm and dry. HEAD: Normocephalic. EYES: No scleral icterus. No injection or drainage. NECK: Supple, trachea midline. No JVD or lymphadenopathy. CARDIOVASCULAR: Regular rate and rhythm without murmurs, gallops, or rubs. RESPIRATORY: Breath sounds decreased bilaterally. No accessory muscle use. GASTROINTESTINAL: Abdomen soft, non-tender, nondistended. MUSCULOSKELETAL: No cyanosis, or edema. BACK: Nontender without obvious deformity. No CVA tenderness. A/P Problem List: (1) Decompensated COPD with exacerbation (chronic obstructive pulmonary disease) ICD Code: J44.1 Status: Acute (2) Acute chronic obstructive pulmonary disease with respiratory failure ICD Code: J96.00 Status: Acute (3) Chronic kidney disease ICD Code: N18.9 Status: Acute (4) Elevated troponin ICD Code: R74.8 Status: Acute (5) Acute renal failure superimposed on stage 3 chronic kidney disease ICD Code: N17.9 Status: Acute Assessment and Plan 52-year-old female with Acute chronic obstructive pulmonary disease with respiratory failure Decompensated COPD with exacerbation -Chest x-ray with No acute cardiopulmonary abnormality is identified. -Continue Solu-Medrol 40 mg IV every 8 hour, scheduled and when necessary bronchodilator,Symbicort, Spiriva, azithromycin, Mucinex and maintain oxygen saturation above 88-90%. spirometry at bedside -BiPAP when necessary -Pulmonary medicine consultation appreciated Elevated cardiac enzyme -Likely secondary to decompensated COPD with exacerbation -ACS rule out per protocol with serial cardiac enzyme -2-D echo 55-60% -Nitroglycerin when necessary Acute on Chronic kidney disease stage III Start IV fluid NS@125 ml/hr today 04/23/17 Renal ultrasound noted and review by me with No acute disease. Low C3, normal C4, SALO pending and consider nephrology consultation BMP in a.m. Hypertension Continue oral hypertensive medication Hypothyroidism Continue Synthroid DVT prophylaxis: Bilateral SCDs Gabriel Scott MD April 23, 2017 12:13
[2017-04-23] MEDS: AZITHROMYCIN INJ 500 MG in SODIUM CHLOR 0.9% 250 ML INJ 250 ML IV SCH (15:58)
--- NOTE | 2017-04-23 16:41 | HHI.PR ---
Subjective Remarks 52 YOWF with COPD Exac, bronchitis, Nicotine use Breathing better Occ cough, no sp No Fever Objective Vital Signs Vital Signs Date Time Temp Pulse Resp B/P Pulse Ox O2 Delivery O2 Flow Rate FiO2 04/23/17 15:58 18 04/23/17 14:00 64 04/23/17 13:00 66 04/23/17 12:00 56 04/23/17 11:00 97.7 55 18 155/96 95 04/23/17 11:00 56 04/23/17 07:44 95 Nasal Cannula 2.00 04/23/17 07:23 97.4 60 20 147/94 93 04/23/17 07:00 57 04/23/17 04:00 97.5 54 20 136/84 95 04/23/17 03:50 55 04/23/17 00:00 54 04/23/17 00:00 97.5 54 20 119/78 95 04/22/17 21:05 94 Nasal Cannula 2.00 04/22/17 20:00 98.0 61 20 141/81 93 04/22/17 19:00 60 I/O 04/22/17 04/22/17 04/22/17 04/23/17 04/23/17 04/23/17 06:59 14:59 22:59 06:59 14:59 22:59 Intake Total 720 ml 970 ml 720 ml 620 ml Output Total 650 ml 1000 ml 950 ml 200 ml Balance 70 ml -30 ml -230 ml 420 ml Intake Oral 720 ml 720 ml 720 ml 120 ml IV Total 250 ml 500 ml Output Urine Total 650 ml 1000 ml 950 ml 200 ml # Bowel Movements 0 0 0 Result Diagram: 04/23/1742804/23/17428 Objective Remarks GENERAL: MBMN WF with mild sob SKIN: Warm and dry. HEAD: Normocephalic. EYES: No scleral icterus. No injection or drainage. NECK: Supple, trachea midline. No JVD or lymphadenopathy. CARDIOVASCULAR: Regular rate and rhythm without murmurs, gallops, or rubs. RESPIRATORY: Breath sounds equal bilaterally. No accessory muscle use. End exp rhonchi GASTROINTESTINAL: Abdomen soft, non-tender, nondistended. MUSCULOSKELETAL: No cyanosis, or edema. BACK: Nontender without obvious deformity. No CVA tenderness. A/P Assessment and Plan COPD exac Boprnchitis Nicotine use Anxiety CAD Renal insuff PLAN: Aerosol nebs IV Solumedrol Cont Abx Wean off 02 Smoking cessation. Yosvany Licea MD April 23, 2017 16:41
[2017-04-23] MEDS: RESP: ALBUTEROL 2.5 MG/IPRATROPIUM 0.5 MG NEB (PRN) NEB (18:04)
--- NOTE | 2017-04-23 19:23 | RADRPT ---
EXAM DATE/TIME: 04/23/2017 18:59 [facility] COMPARISON: CHEST SINGLE AP, April 21, 2017, 7:28. INDICATIONS : Chest pain and shortness of breath. MEDICAL HISTORY : Thyroid disease. HTN. Coronary artery disease. COPD. Renal failure. SURGICAL HISTORY : None. ENCOUNTER: Initial ACUITY: 3 days PAIN SCORE: 6/10 LOCATION: Bilateral chest FINDINGS: A single view of the chest demonstrates the lungs to be symmetrically aerated without evidence of mas s, infiltrate or effusion. The cardiomediastinal contours are unremarkable. Osseous structures are intact. CONCLUSION: No acute disease. Andrews Morataya MD on April 23, 2017 at 19:21 Board Certified Radiologist. This report was verified electronically.
[2017-04-23] MEDS ORDERED: TEMAZEPAM 7.5 MG CAP PO ONE (21:45)
[2017-04-24] VITALS (26 sets, daily range): BP systolic 146–169; BP diastolic 88–110; PULSE 50–70; RESP 16–20; TEMP 97.8–98.6; O2SAT 91–97
[2017-04-24 04:35] LABS: BICARBONATE 25.9 MEQ/L (21.0-32.0); POTASSIUM 4.3 MEQ/L (3.5-5.1)
[2017-04-24] MEDS: LEVOTHYROXINE SODIUM 100 MCG TAB PO SCH (05:43)
[2017-04-24] MEDS: methylPREDNISolone SOD SUCC 125 MG/2 ML VIAL IVP SCH ×2 (05:43→14:48)
[2017-04-24] MEDS: RESP: ALBUTEROL 2.5 MG/IPRATROPIUM 0.5 MG NEB (SCH) NEB ×3 (07:32→20:28)
[2017-04-24] MEDS: BUDESONIDE-FORMOTEROL 160/4.5 MCG INHALER INH SCH ×2 (09:45→20:59)
[2017-04-24] MEDS: SODIUM CHLORIDE 0.9% FLUSH 10 ML FLUSH IV FLUSH SCH ×2 (09:45→20:58)
[2017-04-24] MEDS: TIOTROPIUM BROMIDE 18 MCG INH INH SCH (09:46)
[2017-04-24] MEDS: SPIRONOLACTONE 25 MG TAB PO SCH ×2 (09:49→17:34)
[2017-04-24] MEDS: ACETAMINOPHEN/HYDROcodone 325 MG/5 MG TAB PO PRN ×3 (09:49→20:23)
[2017-04-24] MEDS: guaiFENesin E.R. 600 MG TAB PO SCH ×2 (09:49→20:23)
[2017-04-24] MEDS: CARVEDILOL 12.5 MG TAB PO SCH ×2 (09:49→20:22)
[2017-04-24] MEDS: NIFEdipine 90 MG SUSTAINED RELEASE TAB PO SCH (09:49)
--- NOTE | 2017-04-24 13:11 | HHI.PR ---
Subjective Remarks Follow-up decompensated COPD with respiratory failure 04/22/17-patient seen and examined, now with improving respirator and denies any significant shortness of breath. 04/23/17-patient seen and examined, and complains of right ear pains as well as back pain. Requesting "something" to sleep. Reported improvement or shortness of breath. Worsening renal indices 04/24/17-patient seen and examined , reports significant improvement of shortness of breath Objective Vitals Vital Signs Date Time Temp Pulse Resp B/P Pulse Ox O2 Delivery O2 Flow Rate FiO2 04/24/17 12:00 60 04/24/17 11:45 18 04/24/17 11:00 98.2 65 18 151/88 91 04/24/17 11:00 60 04/24/17 10:00 70 04/24/17 09:00 62 04/24/17 08:00 56 04/24/17 08:00 97.8 61 18 169/110 96 04/24/17 08:00 96 Nasal Cannula 2.00 04/24/17 07:33 97 Nasal Cannula 2.00 04/24/17 07:00 50 04/24/17 06:00 60 04/24/17 05:00 57 04/24/17 04:00 Nasal Cannula 3.00 04/24/17 04:00 98.0 54 18 165/96 97 04/24/17 04:00 54 04/24/17 03:00 59 04/24/17 02:00 66 04/24/17 01:00 65 04/24/17 00:00 98.3 62 18 146/89 96 04/24/17 00:00 62 04/24/17 00:00 Nasal Cannula 3.00 04/23/17 23:00 65 04/23/17 22:00 66 04/23/17 21:16 90 Nasal Cannula 2.00 04/23/17 21:00 72 04/23/17 20:00 67 04/23/17 20:00 98.1 67 20 135/85 95 04/23/17 18:00 72 04/23/17 17:00 68 04/23/17 16:00 98.5 63 20 136/82 95 04/23/17 16:00 60 04/23/17 15:00 64 04/23/17 14:00 64 I/O 04/23/17 04/23/17 04/23/17 04/24/17 04/24/17 04/24/17 06:59 14:59 22:59 06:59 14:59 22:59 Intake Total 720 ml 620 ml 1528 ml 250 ml Output Total 950 ml 200 ml 500 ml 700 ml Balance -230 ml 420 ml 1028 ml -450 ml Intake Oral 720 ml 120 ml 480 ml 240 ml IV Total 500 ml 1048 ml 10 ml Output Urine Total 950 ml 200 ml 500 ml 700 ml # Bowel Movements 0 0 Result Diagram: 04/23/17 0429 04/24/17 0337 Objective Remarks GENERAL: NAD SKIN: Warm and dry. HEAD: Normocephalic. EYES: No scleral icterus. No injection or drainage. NECK: Supple, trachea midline. No JVD or lymphadenopathy. CARDIOVASCULAR: Regular rate and rhythm without murmurs, gallops, or rubs. RESPIRATORY: Breath sounds decreased bilaterally. No accessory muscle use. GASTROINTESTINAL: Abdomen soft, non-tender, nondistended. MUSCULOSKELETAL: No cyanosis, or edema. BACK: Nontender without obvious deformity. No CVA tenderness. A/P Problem List: (1) Decompensated COPD with exacerbation (chronic obstructive pulmonary disease) ICD Code: J44.1 Status: Acute (2) Acute chronic obstructive pulmonary disease with respiratory failure ICD Code: J96.00 Status: Acute (3) Chronic kidney disease ICD Code: N18.9 Status: Acute (4) Elevated troponin ICD Code: R74.8 Status: Acute (5) Acute renal failure superimposed on stage 3 chronic kidney disease ICD Code: N17.9 Status: Acute Assessment and Plan 52-year-old female with Acute chronic obstructive pulmonary disease with respiratory failure-improving Decompensated COPD with exacerbation-improving -Chest x-ray with No acute cardiopulmonary abnormality is identified. -Continue Solu-Medrol 40 mg IV every 8 hour, scheduled and when necessary bronchodilator,Symbicort, Spiriva, azithromycin, Mucinex and maintain oxygen saturation above 88-90%. spirometry at bedside -BiPAP when necessary -Pulmonary medicine consultation appreciated Elevated cardiac enzyme -Likely secondary to decompensated COPD with exacerbation -ACS rule out per protocol with serial cardiac enzyme -2-D echo 55-60% -Nitroglycerin when necessary Acute on Chronic kidney disease stage III Initially started on IV fluid NS@125 ml/hr however due to congestion this was held yesterday Renal ultrasound noted and review by me with No acute disease. Low C3, normal C4, SALO pending and consider nephrology consultation BMP in a.m. Hypertension Continue oral hypertensive medication Hypothyroidism Continue Synthroid DVT prophylaxis: Bilateral SCDs Gabriel Scott MD April 24, 2017 13:11
[2017-04-24] MEDS: AZITHROMYCIN INJ 500 MG in SODIUM CHLOR 0.9% 250 ML INJ 250 ML IV SCH (14:47)
[2017-04-24] MEDS: SODIUM CHLOR 0.9% 1000 ML INJ 1,000 ML IV SCH (14:47)
--- NOTE | 2017-04-24 18:48 | HHI.PR ---
Subjective Remarks 52 YOWF with COPD Exac, bronchitis, Nicotine use Breathing better Occ cough, no sp No Fever Wheezing improved Objective Vital Signs Vital Signs Date Time Temp Pulse Resp B/P Pulse Ox O2 Delivery O2 Flow Rate FiO2 04/24/17 15:46 20 04/24/17 13:00 66 04/24/17 12:00 60 04/24/17 11:00 98.2 65 18 151/88 91 04/24/17 11:00 60 04/24/17 10:00 70 04/24/17 09:00 62 04/24/17 08:00 56 04/24/17 08:00 97.8 61 18 169/110 96 04/24/17 08:00 96 Nasal Cannula 2.00 04/24/17 07:33 97 Nasal Cannula 2.00 04/24/17 07:00 50 04/24/17 06:00 60 04/24/17 05:00 57 04/24/17 04:00 Nasal Cannula 3.00 04/24/17 04:00 98.0 54 18 165/96 97 04/24/17 04:00 54 04/24/17 03:00 59 04/24/17 02:00 66 04/24/17 01:00 65 04/24/17 00:00 98.3 62 18 146/89 96 04/24/17 00:00 62 04/24/17 00:00 Nasal Cannula 3.00 04/23/17 23:00 65 04/23/17 22:00 66 04/23/17 21:16 90 Nasal Cannula 2.00 04/23/17 21:00 72 04/23/17 20:00 67 04/23/17 20:00 98.1 67 20 135/85 95 I/O 04/23/17 04/23/17 04/23/17 04/24/17 04/24/17 04/24/17 07:00 15:00 23:00 07:00 15:00 23:00 Intake Total 720 ml 620 ml 1528 ml 250 ml Output Total 950 ml 200 ml 500 ml 700 ml Balance -230 ml 420 ml 1028 ml -450 ml Intake Oral 720 ml 120 ml 480 ml 240 ml IV Total 500 ml 1048 ml 10 ml Output Urine Total 950 ml 200 ml 500 ml 700 ml # Bowel Movements 0 0 Result Diagram: 04/23/17 0429 04/24/17 0337 Objective Remarks GENERAL: MBMN WF with mild sob SKIN: Warm and dry. HEAD: Normocephalic. EYES: No scleral icterus. No injection or drainage. NECK: Supple, trachea midline. No JVD or lymphadenopathy. CARDIOVASCULAR: Regular rate and rhythm without murmurs, gallops, or rubs. RESPIRATORY: Breath sounds equal bilaterally. No accessory muscle use. End exp rhonchi GASTROINTESTINAL: Abdomen soft, non-tender, nondistended. MUSCULOSKELETAL: No cyanosis, or edema. BACK: Nontender without obvious deformity. No CVA tenderness. A/P Assessment and Plan COPD exac Boprnchitis Nicotine use Anxiety CAD Renal insuff PLAN: Aerosol nebs DC Solumedrol Cont Abx Wean off 02 Smoking cessation. pred 10 mg tid Yosvany Licea MD April 24, 2017 18:47
[2017-04-24] MEDS ORDERED: TEMAZEPAM 7.5 MG CAP PO PRN (19:45)
[2017-04-25] VITALS (16 sets, daily range): BP systolic 149–159; BP diastolic 83–96; PULSE 52–62; RESP 16; TEMP 97.6–98; O2SAT 89–95
[2017-04-25] MEDS: ACETAMINOPHEN/HYDROcodone 325 MG/5 MG TAB PO PRN ×3 (00:09→08:12)
[2017-04-25] MEDS: SODIUM CHLOR 0.9% 1000 ML INJ 1,000 ML IV SCH ×2 (00:10→13:50)
[2017-04-25] MEDS: LEVOTHYROXINE SODIUM 100 MCG TAB PO SCH (06:07)
[2017-04-25] MEDS: guaiFENesin E.R. 600 MG TAB PO SCH (08:11)
[2017-04-25] MEDS: NIFEdipine 90 MG SUSTAINED RELEASE TAB PO SCH (08:11)
[2017-04-25] MEDS: SODIUM CHLORIDE 0.9% FLUSH 10 ML FLUSH IV FLUSH SCH (08:12)
[2017-04-25] MEDS: SPIRONOLACTONE 25 MG TAB PO SCH (08:12)
[2017-04-25] MEDS: CARVEDILOL 12.5 MG TAB PO SCH (08:12)
[2017-04-25] MEDS: BUDESONIDE-FORMOTEROL 160/4.5 MCG INHALER INH SCH (08:12)
[2017-04-25] MEDS: TIOTROPIUM BROMIDE 18 MCG INH INH SCH (08:12)
[2017-04-25] MEDS: predniSONE 10 MG TAB PO SCH ×2 (08:12→12:33)
[2017-04-25] MEDS: RESP: ALBUTEROL 2.5 MG/IPRATROPIUM 0.5 MG NEB (SCH) NEB (08:28)
[2017-04-25] MEDS ORDERED: SYMB160A INH (12:40)
[2017-04-25] MEDS ORDERED: IPRA17I INH (12:40)
[2017-04-25] MEDS ORDERED: SPIRCAP INH (12:40)
[2017-04-25] MEDS ORDERED: guaiFENesin ER PO (12:40)
[2017-04-25] MEDS ORDERED: VENTAER INH (12:40)
[2017-04-25] MEDS ORDERED: AZIT250T3 PO (12:40)
[2017-04-25] MEDS ORDERED: PRED10 PO (12:40)
--- NOTE | 2017-04-25 12:44 | HHI.PR ---
Subjective Remarks Follow-up decompensated COPD with respiratory failure 04/22/17-patient seen and examined, now with improving respirator and denies any significant shortness of breath. 04/23/17-patient seen and examined, and complains of right ear pains as well as back pain. Requesting "something" to sleep. Reported improvement or shortness of breath. Worsening renal indices 04/24/17-patient seen and examined , reports significant improvement of shortness of breath 04/25/17-patient seen and examined, denies any shortness of breath. Ambulating without any respiratory distress. States she is ready for discharge home. Objective Vitals Vital Signs Date Time Temp Pulse Resp B/P Pulse Ox O2 Delivery O2 Flow Rate FiO2 04/25/17 12:12 61 04/25/17 11:23 59 04/25/17 11:23 97.6 59 16 149/83 89 04/25/17 10:58 57 04/25/17 09:34 16 04/25/17 09:08 59 04/25/17 08:31 94 04/25/17 07:25 60 04/25/17 07:25 97.8 57 16 159/96 94 04/25/17 07:25 94 Nasal Cannula 1.00 04/25/17 06:17 62 04/25/17 05:04 52 04/25/17 04:18 56 04/25/17 03:25 98.0 53 16 151/93 95 04/25/17 03:15 52 04/25/17 02:05 54 04/25/17 01:23 53 04/25/17 00:02 59 04/24/17 23:20 98.1 56 18 150/93 94 04/24/17 23:00 57 04/24/17 22:00 63 04/24/17 21:27 95 Nasal Cannula 2.00 04/24/17 21:27 66 04/24/17 21:27 98.0 62 16 146/93 95 04/24/17 20:28 95 Nasal Cannula 2.00 04/24/17 19:29 62 04/24/17 18:00 58 04/24/17 17:00 68 04/24/17 16:00 64 04/24/17 15:00 66 04/24/17 15:00 98.6 62 20 150/89 94 04/24/17 14:00 66 04/24/17 13:00 66 I/O 04/24/17 04/24/17 04/24/17 04/25/17 04/25/17 04/25/17 07:00 15:00 23:00 07:00 15:00 23:00 Intake Total 250 ml 1138 ml 1648 ml Output Total 700 ml 1500 ml 1050 ml Balance -450 ml -362 ml 598 ml Intake Oral 240 ml 660 ml 600 ml IV Total 10 ml 478 ml 1048 ml Output Urine Total 700 ml 1500 ml 1050 ml # Bowel Movements 0 0 1 Result Diagram: 04/23/17 0429 04/24/17 0337 Imaging Last Impressions Chest X-Ray 04/23/17 0000 Signed Impressions: Service Date/Time: Sunday, April 23, 2017 18:59 - CONCLUSION: No acute disease. Andrews Morataya MD Renal Ultrasound 04/22/17 0000 Signed Impressions: Service Date/Time: Saturday, April 22, 2017 15:01 - CONCLUSION: No acute disease. Andrews Morataya MD Objective Remarks GENERAL: NAD SKIN: Warm and dry. HEAD: Normocephalic. EYES: No scleral icterus. No injection or drainage. NECK: Supple, trachea midline. No JVD or lymphadenopathy. CARDIOVASCULAR: Regular rate and rhythm without murmurs, gallops, or rubs. RESPIRATORY: Breath sounds decreased bilaterally. No accessory muscle use. GASTROINTESTINAL: Abdomen soft, non-tender, nondistended. MUSCULOSKELETAL: No cyanosis, or edema. BACK: Nontender without obvious deformity. No CVA tenderness. Procedures none A/P Problem List: (1) Decompensated COPD with exacerbation (chronic obstructive pulmonary disease) ICD Code: J44.1 Status: Resolved (2) Acute chronic obstructive pulmonary disease with respiratory failure ICD Code: J96.00 Status: Resolved (3) Chronic kidney disease ICD Code: N18.9 Status: Chronic (4) Elevated troponin ICD Code: R74.8 Status: Acute (5) Acute renal failure superimposed on stage 3 chronic kidney disease ICD Code: N17.9 Status: Acute Assessment and Plan 52-year-old female with Acute chronic obstructive pulmonary disease with respiratory failure-resolved Decompensated COPD with exacerbation-resolved -Chest x-ray with No acute cardiopulmonary abnormality is identified. -s/p Solu-Medrol 40 mg IV every 8 hour and now on prednisone 10 mg 3 times a day , scheduled and when necessary bronchodilator,Symbicort, Spiriva, azithromycin, Mucinex and maintain oxygen saturation above 88-90%. spirometry at bedside -BiPAP when necessary -Tobacco cessation highly advised -Pulmonary medicine consultation appreciated Elevated cardiac enzyme -Likely secondary to decompensated COPD with exacerbation -ACS rule out per protocol with serial cardiac enzyme -2-D echo 55-60% -Nitroglycerin when necessary Acute on Chronic kidney disease stage III Initially started on IV fluid NS@125 ml/hr however due to congestion this was held yesterday Renal ultrasound noted and review by me with No acute disease. Low C3, normal C4, SALO pending and consider nephrology consultation Hypertension Continue oral hypertensive medication Hypothyroidism Continue Synthroid DVT prophylaxis: Bilateral SCDs Gabriel Scott MD April 25, 2017 12:44
--- NOTE | 2017-04-25 12:46 | HHI.DS ---
Discharge Summary Admission Date April 21, 2017 at 12:23 Discharge Date: April 25, 2017 Admitting Diagnosis COPD exacerbation, elevated cardiac enzymes, Chronic kidney disease (1) Decompensated COPD with exacerbation (chronic obstructive pulmonary disease) ICD Code: J44.1 (2) Acute chronic obstructive pulmonary disease with respiratory failure ICD Code: J96.00 (3) Chronic kidney disease ICD Code: N18.9 (4) Elevated troponin ICD Code: R74.8 (5) Acute renal failure superimposed on stage 3 chronic kidney disease ICD Code: N17.9 Procedures none Brief History - From Admission 52 year-old female with a history of COPD, hypertension drove herself to the hospital for evaluation of worsening shortness of breath and extensive nonproductive cough despite treatment with ProAir prescribed to her 2 days ago from a local urgent care. Patient reports that over the past year she's been having difficulty breathing despite following with her primary care in [place] for treatment of COPD. She reports were couple rounds of antibiotics lately. He currently denies any chest pain. She has no febrile episode. On admission patient had Initial ABG with pH 7.25 pCO2 63 pO2 54. CBC/BMP: 04/23/17 0429 04/24/17 0337 Significant Findings Laboratory Tests Test 04/23/17 04/24/17 04:29 03:37 Neutrophils (%) (Auto) 89.6 % (16.0-70.0) Lymphocytes (%) (Auto) 7.7 % (9.0-44.0) Neutrophils # (Auto) 8.9 TH/MM3 (1.8-7.7) Lymphocytes # (Auto) 0.8 TH/MM3 (1.0-4.8) Blood Urea Nitrogen 55 MG/DL (7-18) 57 MG/DL (7-18) Creatinine 2.55 MG/DL 2.20 MG/DL (0.50-1.00) (0.50-1.00) Estimat Glomerular Filtration 20 ML/MIN (>89) 23 ML/MIN (>89) Rate Random Glucose 137 MG/DL 133 MG/DL (74-106) (74-106) Albumin 2.8 GM/DL (3.4-5.0) Calcium Level 8.1 MG/DL (8.5-10.1) Imaging Last Impressions Chest X-Ray 04/23/17 0000 Signed Impressions: Service Date/Time: Sunday, April 23, 2017 18:59 - CONCLUSION: No acute disease. Andrews Morataya MD Renal Ultrasound 04/22/17 0000 Signed Impressions: Service Date/Time: Saturday, April 22, 2017 15:01 - CONCLUSION: No acute disease. Anderws Morataya MD PE at Discharge GENERAL: NAD SKIN: Warm and dry. HEAD: Normocephalic. EYES: No scleral icterus. No injection or drainage. NECK: Supple, trachea midline. No JVD or lymphadenopathy. CARDIOVASCULAR: Regular rate and rhythm without murmurs, gallops, or rubs. RESPIRATORY: Breath sounds decreased bilaterally. No accessory muscle use. GASTROINTESTINAL: Abdomen soft, non-tender, nondistended. MUSCULOSKELETAL: No cyanosis, or edema. BACK: Nontender without obvious deformity. No CVA tenderness. Hospital Course She was admitted secondary to Acute chronic obstructive pulmonary disease with respiratory failure and Decompensated COPD with exacerbation, which pulmonary medicine was consulted and she was started on IV Solu-Medrol, scheduled and when necessary bronchodilator,Symbicort, Spiriva, azithromycin, Mucinex and maintain oxygen saturation above 88-90%. Patient conditions improved and she was subsequently straight to by mouth prednisone. Secondary to acute on chronic kidney disease was started on IV maintenance fluid with improvement of creatinine prior to discharge. DVT and GI prophylaxis were provided. Prior to discharge, patient's condition improved and vital remained stable. She was advised on tobacco cessation Pt Condition on Discharge: Stable Discharge Disposition: Discharge Home Discharge Time: > 30 minutes Discharge Instructions DIET: Follow Instructions for: Heart Healthy Diet Activities you can perform: Regular-No Restrictions Follow up Referrals: PCP Follow-up - 1 Week Pulmonology New Medications: Albuterol 18 GM Inh (Ventolin Hfa 18 GM Inh) 90 Mcg/Act Aer 2 PUFF INH Q4H PRN SHORTNESS OF BREATH #1 Ref 3 INHALER Azithromycin (Azithromycin) 250 Mg Tab 250 MG PO DAILY Infection #5 Ref 0 TAB Ipratropium HFA 12.9 GM Inh (Atrovent HFA 12.9 GM Inh) 17 Mcg/Act Aer 2 PUFF INH Q6HR PRN SHORTNESS OF BREATH #1 Ref 3 INHALER Budesonide-Formoterol Inh (Symbicort Inh) 160-4.5 Mcg/Act Aero 2 PUFF INH Q12HR Breathing Treatment #1 Ref 3 INHALER Prednisone (Prednisone) 10 Mg Tab 10 MG PO TID Breathing Treatment #21 TAB Tiotropium Inh (Spiriva Handihaler) 18 Mcg Cap 18 MCG INH DAILY Breathing Treatment #1 Ref 3 CAP ([guaiFENesin ER]) 600 MG TABCR 600 MG PO BID Breathing Treatment #20 TAB.SR Continued Medications: Albuterol Powder Inh (Proair Respiclick Inh) 90 Mcg/Act Aerp 2 PUFF INH Q6H PRN SHORTNESS OF BREATH #1 Ref 0 INHALER Carvedilol (Carvedilol) 12.5 Mg Tab 12.5 MG PO BID #60 Ref 0 TAB Levothyroxine (Levothyroxine) 100 Mcg Tab 100 MCG PO DAILY Thyroid #30 Ref 0 TAB Nifedipine (Nifedipine ER) 90 Mg Tab 90 MG PO DAILY Spironolactone (Spironolactone) 25 Mg Tab 25 MG PO BIDPC #60 Ref 0 TAB Discontinued Medications: Azithromycin (Zithromax Z-Mikhail) 250 Mg Dspk 250 MG PO DIRECTED 500 MG (2 tabs) day 1, then 1 tab days 2-5. Infection #1 Ref 0 DSPK Prednisone (Prednisone) 50 Mg Tab 50 MG PO DAILY #5 Ref 0 TAB Gabriel Scott MD April 25, 2017 12:46
== END 2017-04-25 14:33 | disposition home or self-care (01) | DRG 189 ==
LOC: NEPE 06:45 → NEDA 12:23 → HCVR 13:47 → HCIN 04-23 11:25
PROVIDERS: ADMIT Hospitalist; ATTEND Hospitalist
PROC: 5A09357 Assistance with Respiratory Ventilation, Less than 24 Consecutive Hours, Continuous Positive Airway Pressure (ICD-10-PCS; principal; 2017-04-21)
DX: J96.90 Respiratory failure, unspecified, unspecified whether with hypoxia or hypercapnia (principal); N17.9 Acute kidney failure, unspecified; J44.1 Chronic obstructive pulmonary disease with (acute) exacerbation; I13.0 Hypertensive heart and chronic kidney disease with heart failure and stage 1 through stage 4 chronic kidney disease, or unspecified chronic kidney disease; I50.9 Heart failure, unspecified; N18.3 Chronic kidney disease, stage 3 (moderate); R74.8 Abnormal levels of other serum enzymes; E03.9 Hypothyroidism, unspecified; F41.9 Anxiety disorder, unspecified; I25.10 Atherosclerotic heart disease of native coronary artery without angina pectoris; F17.210 Nicotine dependence, cigarettes, uncomplicated; Z88.0 Allergy status to penicillin; Z88.2 Allergy status to sulfonamides; Z98.1 Arthrodesis status
CPT/HCPCS: 36600; 71010; 76775; 76937; 80048; 80053; 80069; 82550; 82552; 82805; 83880; 84484; 85025; 86038; 86160; 93005; 93306; 94002; 94640; 94664; 96374; 96375; J0456; J2060; J2930; J7030; J7050; J7512; J7613

== ENCOUNTER 2017-10-05 11:19 | Emergency (ER) | payer OTHER ==
[~2017-10-05] VITALS: Ht 162.6 cm; Wt 58.0 kg
[~2017-10-05 11:19] MED LIST changes: +ALBU1AER5 INH; -ALBU6.7H INH; +AZIT250T3 PO; +IPRA17I INH; +PRED10 PO; -PRED50 PO; +SPIRCAP INH; +SYMB160A INH; -ZITHTAB PO; +guaiFENesin ER PO
[2017-10-05 11:24] VITALS: BP 157/97; PULSE 64; RESP 18; TEMP 98.1
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
[2017-10-05] MEDS ORDERED: traMADol HCL 50 MG TAB PO ONE (11:45)
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
[2017-10-05] MEDS ORDERED: ROBA500T PO (12:36)
== END 2017-10-05 12:43 | disposition home or self-care (01) ==
LOC: PHEFT 11:19
DX: S13.4XXA Sprain of ligaments of cervical spine, initial encounter (principal); S00.83XA Contusion of other part of head, initial encounter; I10 Essential (primary) hypertension; E07.9 Disorder of thyroid, unspecified; N19 Unspecified kidney failure; Z72.0 Tobacco use; Z98.1 Arthrodesis status; Z87.09 Personal history of other diseases of the respiratory system; Z86.79 Personal history of other diseases of the circulatory system; V49.88XA Car occupant (driver) (passenger) injured in other specified transport accidents, initial encounter
CPT/HCPCS: 70450; 72125; 99284

== ENCOUNTER → 2018-01-29 | Outpatient (CLI) | payer OTHER ==
[~2018-01-29] MED LIST changes: -ALBU1AER5 INH; -AZIT250T3 PO; -PRED10 PO; +ROBA500T PO; -SPIR25TA PO; -SPIRCAP INH; -guaiFENesin ER PO
--- NOTE | 2018-01-30 14:36 | EKG ---
Date Performed: 01/29/2018 Time Performed: 14:28:44 PTAGE: 52 years EKG: NONSPECIFIC ST/T WAVE ABNORMALITY PREVIOUS TRACING : 04/21/2017 07.16 DOCTOR: Roger Santillan Interpretating Date/Time 01/30/2018 14:35:41
== END ==
LOC: HCAV 14:16
PROVIDERS: ATTEND Psychiatry & Neurology Child & Adolescent Psychiatry
DX: F28 Other psychotic disorder not due to a substance or known physiological condition (principal); F14.10 Cocaine abuse, uncomplicated; F33.1 Major depressive disorder, recurrent, moderate; R94.31 Abnormal electrocardiogram [ECG] [EKG]
CPT/HCPCS: 93005

== ENCOUNTER 2018-11-05 07:28 | Observation (INO) ==
[2018-11-05 08:12] LABS: Baso # (Auto) 0.1 th/mm3 (0.0-0.2); Baso % (Auto) 1.2 % (0.0-2.0); Eos # (Auto) 0.3 th/mm3 (0.0-0.4); Eos % (Auto) 4.7 % (0.0-4.0); Hemoglobin 13.5 gm/dL (11.6-15.3); Lymph # (Auto) 2.1 th/mm3 (1.0-4.8); Mean Corpuscular HGB Conc 34.8 % (32.0-36.0); Mean Platelet Volume 7.3 fL (7.0-11.0); Mono # (Auto) 0.5 th/mm3 (0.0-0.9); Neut # (Auto) 3.5 th/mm3 (1.8-7.7); Neut % (Auto) 54.1 % (16.0-70.0); Platelet Count 226 th/mm3 (150-450); Red Cell Distribution Width 13.2 % (11.6-17.2); White Blood Count 6.5 th/mm3 (4.0-11.0)
[2018-11-05] MEDS ORDERED: Metoprolol Tartrate 25 MG Tablet PO ONE (08:14)
[2018-11-05] MEDS ORDERED: Chlorhexidine Gluconate 2% 1 Pack (2 Cloths) TOPICAL ONE (08:14)
[2018-11-05 08:19] LABS: Prothrombin Time 10.5 sec (9.8-11.6)
[2018-11-05 08:25] LABS: Carbon Dioxide 23.5 meq/L (21.0-32.0); Potassium 3.5 meq/L (3.5-5.1)
[2018-11-05] MEDS ORDERED: Sodium Chlor 0.9% Inj 500 ML IV.SIG SCH (09:00)
--- NOTE | 2018-11-05 09:00 | P.HPVS ---
History of Present Illness Chief Complaint: near ESRD, needs HD access History of Present Illness: 53 yo female with near ESRD who is s/p R UE brachiobasilic (1st stage) on . By exam and duplex, AVF is mature and ready for 2nd stage. No interval changes in health that would preclude OR today - Inpatient Certification If this patient has been admitted as an Inpatient: I certify that the inpatient services were ordered in accordance with Medicare regulations governing the order. This includes certification that hospital inpatient services are reasonable and necessary and in the case of services not specified as inpatient-only under 42 CFR 419.22(n), that they are appropriately provided as inpatient services in accordance to with the 2-midnight benchmark under 43 CFR 412.3(e) Estimated Total Length of Stay (Days): 2 Plans for Post Hospital Care: Home Review of Systems All other systems reviewed negative except as stated in HPI PMFSH - History History Provided By: Patient - Medical History Medical History: Medical History (Last Reviewed 11/05/18 @ 08:58 by Andrews Hatfield MD) Hepatitis C Arteriovenous fistula COPD (chronic obstructive pulmonary disease) Chronic pain ESRD (end stage renal disease) Fusion of lumbar spine History of anesthesia reaction History of coma Hypertension Hypothyroidism Metal bone fixation hardware in place Neck pain Renal disease - Surgical History Surgical History: Surgical History (Last Reviewed 11/05/18 @ 08:58 by Andrews Hatfield MD) H/O abdominoplasty History of lumbar fusion - Tobacco History Second Hand Smoke Exposure: Yes Tobacco Use In Past 30 Days: Yes Smoking Status: Current every day smoker Tobacco Type: Cigarettes - Alcohol History How Often Do You Have a Drink Containing Alcohol: Monthly or less - Substance Use History Substance History: No History of Abuse - Travel History Recent Travel in the [place] Within the Last 8 Weeks: No Recent Travel Out of the Country Within the Last 8 Weeks: No Medications and Allergies Active Medications: Active Medications Lactated Ringer's (Lr 1000 Ml Inj) 1,000 mls @ 30 mls/hr IV.SIG .Q24H TERRI Stop: 11/06/18 08:14 Last Admin: 11/05/18 08:21 Dose: Not Given Sodium Chloride (Ns Inj) 500 mls @ 30 mls/hr IV.SIG .Q10H TERRI Last Admin: 11/05/18 08:21 Dose: 30 mls/hr Allergies Allergy/AdvReac Type Severity Reaction Status Date / Time penicillin G Allergy Severe Hives Verified 11/05/18 07:55 Sulfa (Sulfonamide Allergy Severe Hives Verified 11/05/18 07:55 Antibiotics) Home Medications Medication Instructions Recorded Confirmed Type glycopyrrolate-formoterol [Bevespi 2 puff INHALATION QAM AND QPM 06/03/18 History Aerosphere] hydrocodone-acetaminophen [[place]ley] 2 tab PO Q6-8H PRN 06/03/18 11/05/18 History levothyroxine 100 mcg PO DAILY 06/03/18 11/05/18 History nifedipine 90 mg PO HS 06/03/18 11/05/18 History minoxidil 2.5 mg PO DAILY 09/20/18 11/05/18 History Physical Exam Vital Signs / I&O: Vital Signs 11/05/18 08:10 Temperature 98.6 F Pulse Rate 74 Respiratory Rate 16 Blood Pressure 156/82 H Pulse Oximetry 97 Intake & Output 11/04/18 11/05/18 11/05/18 18:59 06:59 18:59 Weight 56.8 kg Other: Weight On Admission 56.8 kg Neuro: alert, no distress, GARCIA HEENT: NC/AT; anicteric Neck: no JVD Heart: reg rate Lungs: clear B Vascular: + R UE incision healed; + thrill Extremities: hand with good strength Laboratory Results - last 24 hr 11/05/18 11/05/18 11/05/18 07:55 07:55 07:55 WBC 6.5 RBC 4.10 Hgb 13.5 Hct 39.0 MCV 95.0 MCH 33.0 MCHC 34.8 RDW 13.2 Plt Count 226 MPV 7.3 Neut % (Auto) 54.1 Lymph % (Auto) 32.0 [place] % (Auto) 8.0 Eos % (Auto) 4.7 H Baso % (Auto) 1.2 Neut # (Auto) 3.5 Lymph # (Auto) 2.1 [place] # (Auto) 0.5 Eos # (Auto) 0.3 Baso # (Auto) 0.1 WBC Differential . Differential Comment Auto diff final PT 10.5 INR 1.0 Sodium 141 Potassium 3.5 Chloride 109 H Carbon Dioxide 23.5 Anion Gap 9 BUN 37 H Creatinine 3.50 H Estimated GFR 14 L Random Glucose 106 Calcium 9.0 Blood Type Antibody Screen 11/05/18 07:55 WBC RBC Hgb Hct MCV MCH MCHC RDW Plt Count MPV Neut % (Auto) Lymph % (Auto) [place] % (Auto) Eos % (Auto) Baso % (Auto) Neut # (Auto) Lymph # (Auto) [place] # (Auto) Eos # (Auto) Baso # (Auto) WBC Differential Differential Comment PT INR Sodium Potassium Chloride Carbon Dioxide Anion Gap BUN Creatinine Estimated GFR Random Glucose Calcium Blood Type B Positive Antibody Screen Negative Caprini VTE Risk Assessment Caprini VTE Risk Assessment: No/Low Risk (score <= 1) (intraoperative heparin) Caprini Risk Assessment Model: Point Value = 1 Point Value = 2 Point Value = 3 Point Value = 5 Age 41-60 Minor surgery BMI > 25 kg/m2 Swollen legs Varicose veins or History of unexplained or recurrent spontaneous Oral contraceptives or hormone replacement Sepsis (< 1 month) Serious lung disease, including pneumonia (< 1 month) Abnormal pulmonary function Acute myocardial infarction Congestive heart failure (< 1 month) History of inflammatory bowel disease Medical patient at bed rest Age 61-74 Arthroscopic surgery Major open surgery (> 45 min) Laparoscopic surgery (> 45 min) Malignancy Confined to bed (> 72 hours) Immobilizing plaster cast Central venous access Age >= 75 History of VTE Family history of VTE Factor V Leiden Prothrombin [id number] Lupus anticoagulant Anticardiolipin antibodies Elevated serum homocysteine Heparin-induced thrombocytopenia Other congenital or acquired thrombophilia Stroke (< 1 month) Elective arthroplasty Hip, pelvis, or leg fracture Acute spinal cord injury (< 1 month) Prophylaxis Regimen: Total Risk Factor Score Risk Level Prophylaxis Regimen 0-1 Low Early ambulation 2 Moderate Order ONE of the following: *Sequential Compression Device (SCD) *Heparin 5000 units SQ BID 3-4 Higher Order ONE of the following medications: *Heparin 5000 units SQ TID *Enoxaparin/Lovenox 40 mg SQ daily (WT < 150 kg, CrCl > 30 mL/min) *Enoxaparin/Lovenox 30 mg SQ daily (WT < 150 kg, CrCl > 10-29 mL/min) *Enoxaparin/Lovenox 30 mg SQ BID (WT < 150 kg, CrCl > 30 mL/min) AND/OR *Sequential Compression Device (SCD) 5 or more Highest Order ONE of the following medications: *Heparin 5000 units SQ TID (Preferred with Epidurals) *Enoxaparin/Lovenox 40 mg SQ daily (WT < 150 kg, CrCl > 30 mL/min) *Enoxaparin/Lovenox 30 mg SQ daily (WT < 150 kg, CrCl > 10-29 mL/min) *Enoxaparin/Lovenox 30 mg SQ BID (WT < 150 kg, CrCl > 30 mL/min) AND *Sequential Compression Device (SCD) Assessment and Plan - Assessment (1) Renal insufficiency Code(s): N28.9 - Disorder of kidney and ureter, unspecified Status: Acute - Plan RIGHT upper extremity access revision. Post-op observation overnight. Mom: [phone] Discharge Planning: tomorrow (POD#1)
[2018-11-05] MEDS ORDERED: Thrombin Topical 20,000 UNIT Spray Kit TOPICAL ONE (10:19)
[2018-11-05] MEDS ORDERED: Bupivacaine PF 0.5% Inj 10 ML Vial ONE (10:19)
[2018-11-05] MEDS ORDERED: Heparin/NS PF Inj 500 ML ONE (10:19)
[2018-11-05] MEDS ORDERED: Protamine Sulfate Inj 50 MG/5 ML Vial ONE (10:19)
[2018-11-05] MEDS ORDERED: Heparin 10,000 UNITS/10 ML Vial (for IV use) ONE (10:19)
[2018-11-05] MEDS ORDERED: Bisacodyl 10 MG Supp RECTAL PRN (12:19)
--- NOTE | 2018-11-05 12:19 | P.OP ---
- Preoperative Diagnosis (1) Renal insufficiency - Postoperative Diagnosis (1) Renal insufficiency Date of procedure: 11/05/18 Procedure: R UE access revision (transposition) Implants: none Anesthesia: GETA Surgeon: Andrews Hatfield MD [place] L[place]man: Tayla Stark Estimated blood loss (mL): 75 IV fluids (mL): 300 Pathology: none sent Operation and Findings: 7-10 mm AVF; + thrill after transposition + Doppler signals in wrist
[2018-11-05] MEDS ORDERED: fentaNYL Citrate Inj 100 MCG/2 ML Ampul ONE (12:53)
[2018-11-05] MEDS ORDERED: *morphine SULFATE 4 MG/ML PERIprocedure ONLY ONE (12:57)
[2018-11-05] MEDS ORDERED: *HYDROmorphone PF Inj 1 MG/ML Ampul PERIprocedural Use ONLY ONE (13:04)
--- NOTE | 2018-11-05 13:16 | MP ---
cc: Andrews Hatfield MD DATE OF OPERATION: 11/05/2018 PREOPERATIVE DIAGNOSIS: Right upper extremity fistula, need for dialysis access. POSTOPERATIVE DIAGNOSIS: Right upper extremity fistula, need for dialysis access. PROCEDURE: Right upper extremity access. PROCEDURE PERFORMED: Revision (transposition). ATTENDING SURGEON: Andrews Hatfield MD. MANUFACTURED BUILDINGS REPAIRER SURGEON: Tayla Stark. ANESTHESIA: General. INDICATIONS FOR PROCEDURE: The patient is a 53-year-old lady with near end-stage renal disease, who has a right brachiobasilic fistula placed several weeks ago. It is matured and has a diameter between 7 and 10 mm. She presents for elective second stage. Intraoperatively, the fistula was found to be widely patent and it was transposed without difficulty. DESCRIPTION OF PROCEDURE: Informed consent was obtained from the patient she was taken to the operating room and placed supine on the operating table. An appropriate timeout was taken for the patient's identity, operative site and planned procedure. The administration of 1 gram of vancomycin was initiated prior to skin incision and will be discontinued after single preoperative dose. Vancomycin was chosen because of the patient's PENICILLIN ALLERGY. Everyone in the room agreed with timeout and we proceeded. Her right arm was prepped and draped. Incision made in the medial aspect of the upper arm, carried down through subcutaneous tissue with electrocautery. The basilic vein was identified and dissected free from the anastomosis all the way up to the axillary vein. Side branches were ligated with 3-0 silk. The vein was marked for orientation. The distal limb was clamped with the right angle transected and the distal end was oversewn with 3-0 silk and a large Hemoclip. The vein was then tunneled in the anterior aspect of the upper arm, taking caution not to twist it. The brachial artery was identified on the medial aspect of the incision, dissected ____ centimeters. The patient was then heparinized with 3000 units of IV heparin. Proximal and distal brachial artery with profunda clamps and a longitudinal arteriotomy was made with an 11 blade, extended with Kelby scissors. The vein was spatulated and sewn end-to-side with running 6-0 Prolene suture. At the completion, it was flushed and noted to be hemostatic. There was a nice thrill in the fistula and a Doppler signal. heparin was reversed with Protamine. The wound was infiltrated with Marcaine, made hemostatic and closed with 2-0 Polysorb, 3-0 Polysorb and 4-0 Monocryl. The sponge and needle counts were correct at the end of the case. I was present, scrubbed, and performed the entire procedure. MD BRENDEN Villafana/patito , 12:25 PM , 12:32 PM
[2018-11-05] MEDS ORDERED: HYDROmorphone PF Inj 0.5 MG/0.5 ML Syringe ONE (15:05)
[2018-11-05] MEDS: Senna/Docusate Sodium 8.6/50 MG Tablet PO SCH (20:02)
[2018-11-06] MEDS: Morphine Inj 4 MG/ML Vial IV.PUSH PRN ×6 (01:57→22:30)
[2018-11-06] MEDS: Levothyroxine 100 MCG Tablet PO SCH (05:45)
[2018-11-06 06:05] LABS: Hematocrit 34.5 % (35.0-46.0); Mean Corpuscular HGB Conc 34.7 % (32.0-36.0); Mean Corpuscular Hemoglobin 32.8 pg (27.0-34.0); Mean Corpuscular Volume 94.4 fL (80.0-100.0); Mean Platelet Volume 7.9 fL (7.0-11.0); Platelet Count 183 th/mm3 (150-450); Red Blood Count 3.65 mil/mm3 (4.00-5.30); Red Cell Distribution Width 13.5 % (11.6-17.2); White Blood Count 8.5 th/mm3 (4.0-11.0)
[2018-11-06 06:46] LABS: Calcium 7.9 mg/dL (8.5-10.1); Carbon Dioxide 24.3 meq/L (21.0-32.0); Potassium 4.1 meq/L (3.5-5.1)
--- NOTE | 2018-11-06 07:41 | P.PNVS ---
Subjective Post Op Day #: 1 Procedure: RIGHT UE access revision Subjective/Hospital Course: Looks great having significant incisional pain and hypersensitivity riccardo po Objective Vital Signs / I&O: Vital Signs 11/05/18 08:10 11/05/18 12:42 11/05/18 12:45 Temperature 98.6 F 97.5 F L Pulse Rate 74 95 H 97 H Respiratory Rate 16 28 H 28 H Blood Pressure 156/82 H 195/90 H 154/97 H Pulse Oximetry 97 100 100 11/05/18 13:00 11/05/18 13:15 11/05/18 13:30 Temperature Pulse Rate 81 83 Respiratory Rate 32 H 26 H 22 Blood Pressure 157/97 H 159/76 H 160/78 H Pulse Oximetry 99 97 98 11/05/18 13:45 11/05/18 14:00 11/05/18 15:00 Temperature Pulse Rate 79 77 75 Respiratory Rate 20 22 18 Blood Pressure 161/81 H 162/79 H 144/76 H Pulse Oximetry 97 99 99 11/05/18 16:00 11/05/18 17:00 11/05/18 20:00 Temperature 98.2 F Pulse Rate 73 72 68 Respiratory Rate 16 15 17 Blood Pressure 149/76 H 152/92 H 158/83 H Pulse Oximetry 99 98 94 L 11/06/18 00:00 11/06/18 04:00 Temperature 98.1 F 97.9 F Pulse Rate 74 77 Respiratory Rate 17 17 Blood Pressure 158/79 H 147/82 H Pulse Oximetry 94 L 91 L Intake & Output 11/05/18 11/06/18 11/06/18 18:59 06:59 18:59 Intake Total 300 / 300 800 / 800 Output Total 75 / 75 Balance 225 / 225 800 / 800 Weight 56.8 kg 56.8 kg Intake: Oral 800 / 800 Anesthesia Amount 300 / 300 Output: Estimated Blood Loss 75 / 75 Other: # Voids 1 3 Weight On Admission 56.8 kg Exam: R UE with + thrill hand ok hypersensitivity near AC part of incision Laboratory Results - last 24 hr 11/05/18 11/05/18 11/05/18 07:55 07:55 07:55 WBC 6.5 RBC 4.10 Hgb 13.5 Hct 39.0 MCV 95.0 MCH 33.0 MCHC 34.8 RDW 13.2 Plt Count 226 MPV 7.3 Neut % (Auto) 54.1 Lymph % (Auto) 32.0 [place] % (Auto) 8.0 Eos % (Auto) 4.7 H Baso % (Auto) 1.2 Neut # (Auto) 3.5 Lymph # (Auto) 2.1 [place] # (Auto) 0.5 Eos # (Auto) 0.3 Baso # (Auto) 0.1 WBC Differential . Differential Comment Auto diff final PT 10.5 INR 1.0 Sodium 141 Potassium 3.5 Chloride 109 H Carbon Dioxide 23.5 Anion Gap 9 BUN 37 H Creatinine 3.50 H Estimated GFR 14 L Random Glucose 106 Calcium 9.0 Blood Type Antibody Screen 11/05/18 11/06/18 11/06/18 07:55 04:00 04:00 WBC 8.5 RBC 3.65 L Hgb 12.0 Hct 34.5 L MCV 94.4 MCH 32.8 MCHC 34.7 RDW 13.5 Plt Count 183 MPV 7.9 Neut % (Auto) Lymph % (Auto) [place] % (Auto) Eos % (Auto) Baso % (Auto) Neut # (Auto) Lymph # (Auto) [place] # (Auto) Eos # (Auto) Baso # (Auto) WBC Differential Differential Comment PT INR Sodium 139 Potassium 4.1 Chloride 106 Carbon Dioxide 24.3 Anion Gap 9 BUN 43 H Creatinine 3.82 H Estimated GFR 12 L Random Glucose 110 H Calcium 7.9 L D Blood Type B Positive Antibody Screen Negative Assessment and Plan - Assessment (1) Renal insufficiency Code(s): N28.9 - Disorder of kidney and ureter, unspecified Status: Acute - Plan POD#1 s/p R UE AVF + thrill, hand ok not yet on HD Discharge Planning: likely later today or tomorrow; will reassess pain control midday prescription for pain med on chart if discharged
[2018-11-06] MEDS ORDERED: GLYCOPYRROLATE FORMOTEROL INH SCH (09:00)
[2018-11-06] MEDS: Aspirin 325 MG Tablet PO SCH (09:08)
[2018-11-06] MEDS: Minoxidil 2.5 MG Tablet PO SCH (09:09)
[2018-11-06] MEDS: Senna/Docusate Sodium 8.6/50 MG Tablet PO SCH ×2 (09:12→19:59)
[2018-11-06] MEDS: Heparin - SQ 10,000 UNITS/ML Vial SQ SCH ×2 (14:12→19:57)
[2018-11-07 03:38] VITALS: O2SAT 94
[2018-11-07] MEDS: Heparin - SQ 10,000 UNITS/ML Vial SQ SCH ×2 (06:11→11:07)
[2018-11-07] MEDS: Levothyroxine 100 MCG Tablet PO SCH (06:11)
[2018-11-07 06:46] VITALS: BP 166/80; TEMP 98.9
[2018-11-07] MEDS: Senna/Docusate Sodium 8.6/50 MG Tablet PO SCH (09:22)
[2018-11-07] MEDS: Aspirin 325 MG Tablet PO SCH (09:22)
[2018-11-07] MEDS: Minoxidil 2.5 MG Tablet PO SCH (09:23)
[2018-11-07 10:00] VITALS: PULSE 70; RESP 16
--- NOTE | 2018-11-07 10:17 | P.PNVS ---
Subjective Post Op Day #: 2 Procedure: RIGHT UE access revision Subjective/Hospital Course: Looks great Mild R UE incisional pain and swelling Incision intact Objective Vital Signs / I&O: Vital Signs 11/06/18 12:00 11/06/18 16:00 11/06/18 20:00 Temperature 97.9 F 98.0 F 98.7 F Pulse Rate 81 82 79 Respiratory Rate 20 20 18 Blood Pressure 155/76 H 165/81 H 172/87 H Pulse Oximetry 89 L 91 L 93 L 11/07/18 00:00 11/07/18 04:00 11/07/18 09:58 Temperature 98.5 F 98.9 F Pulse Rate 86 85 70 Respiratory Rate 18 18 16 Blood Pressure 159/75 H 166/80 H Pulse Oximetry 94 L 94 L Intake & Output 11/06/18 11/07/18 11/07/18 18:59 06:59 18:59 Intake Total 960 / 960 160 / 160 Balance 960 / 960 160 / 160 Weight 60.6 kg Intake: Oral 960 / 960 160 / 160 Other: # Voids 6 3 # Bowel Movements 1 Exam: + thrill near R UE AVF 2+ R radial pulses noted Incision to R UE intact w/ mild swelling Pt denied hand pain Assessment and Plan - Assessment (1) Renal insufficiency Code(s): N28.9 - Disorder of kidney and ureter, unspecified Status: Acute - Plan POD#2 s/p R UE AVF + thrill UE 5/5 Pain controlled Plan Clear for D/c today Arranged out pt f/u Discussed and reviewed out pt f/u Patricia Morales NP [facility] [phone] Discharge Planning: Today
--- NOTE | 2018-11-07 10:25 | P.DS ---
Discharge Summary - Admission Date 11/05/18 12:19 - Admission Diagnosis (1) Renal insufficiency - Discharge Date 11/07/18 - Discharge Diagnosis (1) Renal insufficiency Status: Acute - Summary Brief History from admission: 53 yo female with near ESRD who is s/p R UE brachiobasilic (1st stage) on . By exam and duplex, AVF is mature and ready for 2nd stage. No interval changes in health that would preclude OR today Procedure: RIGHT UE access revision Significant Findings: + thrill Incision intact No hand pain Palpable R UE radial pulse Hospital Course: 53 yo female with near ESRD who is s/p R UE brachiobasilic (1st stage) on . By exam and duplex, AVF is mature and ready for 2nd stage. Pt s/p R UE access revision (transposition) Pt doing well c/o expected R UE incisional pain Pt eating drinking and voiding w/o difficulty Pt w/o any hand complaints Pt cleared for d/c POD 2 E- forcse reviewed pt Rx out pt pain medication for post surgical pain management - Discharge Instructions Any questions or concerns: Call [facility] at [facility] [phone] Discharge Plan - Discharge Disposition Patient Disposition: 01 Discharge Home - Discharge Condition Condition: Good - Discharge Order Discharge Orders: Discharge Order (Routine); Ordered 11/07/18 Ordered By: Patricia Morales - Physicians Team Primary Care Provider: Merlin Vidales Attending Provider: Andrews Hatfield Other Providers: Dena Fung MD - Rxs /Orders / Referrals /Forms Prescriptions: New aspirin 325 mg Tablet 81 mg PO DAILY RF: 0 Continue glycopyrrolate-formoterol [Bevespi Aerosphere] 9-4.8 mcg Hfa Aerosol Inhaler 2 puff INHALATION QAM AND QPM hydrocodone-acetaminophen [[place]] 5-325 mg Tablet 2 tab PO Q6-8H PRN (Reason: Pain) levothyroxine 100 mcg Capsule 100 mcg PO DAILY minoxidil 2.5 mg Tablet 2.5 mg PO DAILY nifedipine 90 mg Tablet Extended Release 90 mg PO HS Referrals: Merlin Vidales MD [Primary Care Provider] - 11/14/18 11:00 am Andrews Hatfield MD [Physician] - See Instructions (Your post op Follow up is on 12/06/18 at 11:00) - Discharge Instructions Patient Printed Instructions: Arteriovenous Graft Creation for Hemodialysis (DC ) - Post Discharge Care Plan Care Plan Goals: Discharge Care Plan Goals After Vascular Surgery Contact: Please call [phone] if you have any problems or have questions regarding your hospitalization. Directions to Meet Your Goals: 1. Diet: * You may resume a regular diet as you were eating at home before your admission. 2. Activity: * Increase your activity level gradually. * Keep surgical extremities elevated when at rest. This will help limit the swelling, bruising and discomfort normally present after surgery. * Walking is a good form of light exercise. Go for a walk at least 3 times per day. * No heavy lifting (lifting over 10 pounds) for at least 4 weeks from surgery. * Check with your surgeon to ensure when you are cleared for heavy lifting and full-intensity exercising. * Your strength will gradually improve. * No driving or operating motorized vehicles while on prescription pain medications. * No swimming until wounds fully healed. * Return to work when cleared by MD/PA/[employer]. 3. Bathing: Shower daily. * Gently let soap and water run over your incision and pat dry. Do not scrub the incision/wound. * Don't soak in a bath or submerge your incision in water until your incision is healed and evaluated by your physician at follow-up (usually two weeks). 4. Wound Care: INCISION SITE CARE INSTRUCTIONS: * You may leave your incision open to air. * Keep your incision clean and dry, unless showering. See above. * Moisture near the incision will cause the wound to open. * No lotions, creams, ointments, or powders on incisions until they are well- healed. * If you have glue over the incision(s), allow it to fall off naturally in 1-3 weeks * If present, lópez/sutures will be removed 2-3 weeks after surgery during your follow-up clinic visit. * If present, change dressing/bandage when soaked/soiled as needed. * Observe wound daily, checking for signs and symptoms of infection including: foul odor, drainage from the incision, increased redness, increased pain at incision, or increased swelling. 5. Pain Control: Expect post-operative pain for 1-4 weeks after surgery. Your pain will improve gradually. * You may have been provided with a prescription for pain medication. Please take as directed, and be aware of side effects such as drowsiness, constipation and mild stomach discomfort. Pain pills on an empty stomach can cause nausea , so eat a small amount of food, such as crackers, when taking these pills. * Take [id number] stool softeners (Colace or Senna) with your prescribed pain medication. * Acetaminophen (500mg every 6 hours) or Ibuprofen (400mg every 6 hours) may be used in conjunction with narcotics to relieve pain. DO NOT take more than 4 grams (4000mg) of Tylenol in one day, as this can harm your liver. DO NOT take ibuprofen IF: you have an allergy to non-steroidal anti-inflammatory medications, you are taking Coumadin, you have been told you have kidney problems, or you have a history of gastrointestinal bleeding or ulcers. DO NOT take more than 3.2 grams (3200mg) of ibuprofen in one day. * You may also find relief from using heat packs or pads or ice packs. 6. Bowel Regimen for Constipation: * People who undergo surgery are likely to develop post-operative constipation. Exposure to narcotics and changes in diet, fluid intake, and physical activity are known contributors to constipation. We recommend routine stool softeners and/ or laxatives after surgery for most patients. Start by taking one medication. You can increase as directed to relieve constipation. Stop taking these medications if you develop diarrhea. These medications are available over-the- counter and do not require a prescription: * Colace is a stool softener. We recommend starting at 100mg orally twice per day as needed for soft stools and increase to a maximum of 200mg twice daily as needed. * Senna is a laxative that works by keeping water in the intestine to help stool move along the intestinal tract. Take 1 tablet daily as needed for soft stool and increase to a maximum of 2 tablets twice daily as needed. Take Senna with two full glasses of water each time. * Miralax, Dulcolax and Milk of Magnesia are other zqzi-lnk-vfsjibz laxatives that may be used as needed for post-operative constipation. * Drink 6-8 glasses of water per day. * Consume 15-30g of fiber per day: * Metamucil powder, 1-2 tablespoons 1-2 times/day OR Benefiber powder, 2 tablespoons 4 times/day. * Avoid straining. 7. Follow-Up: Do Not miss your follow-up appointment. Keep up with all your appointments and yearly check ups If you have any of the following symptoms please call [phone] immediately: Excessive swelling of the affected extremity Sudden onset of severe or unusual pain in the affected extremity Pain that gets worse or is not relieved by medication Warmth, redness, or swelling in the skin around the wound Foul drainage from incision Extensive bruising or discoloration Wound that opens up or pulls apart Fever above 101.5F or shaking chills Nausea or vomiting Severe diarrhea or severe constipation Dizziness or fainting Chest pain, shortness of breath, or increased work of breathing Weight gain >10 lbs over 3-4 days Inability to urinate for more than 6 hours Cloudy or foul smelling urine Urge to urinate more often than usual Symptoms to Report to Your Doctor: Temperature 101F or higher Pain uncontrolled by medication Drainage or foul odor from incision Extensive bruising or discoloration Chest pain Shortness of breath Nausea, vomiting or dizziness Call 911: Call 911 right away if you have: Sudden onset of chest pain that is not relieved by medications Shortness of breath
[2018-11-07] MEDS: Morphine Inj 4 MG/ML Vial IV.PUSH PRN (11:08)
== END 2018-11-07 15:08 | disposition home or self-care (01) ==
LOC: HSDC 07:28 → HSDI 07:28 → N07 17:42
PROVIDERS: ADMIT Surgery; ATTEND Surgery

== ENCOUNTER 2018-12-31 19:46 | Inpatient (IN) ==
[2018-12-31] MEDS ORDERED: Morphine Inj 4 MG/ML Vial IV.PUSH ONE (20:16)
--- NOTE | 2018-12-31 20:55 | ED ---
HPI General Chief Complaint: Respiratory Symptoms Stated Complaint: SOB Time Seen by Provider: 12/31/18 20:06 Source: patient Mode of arrival: ambulatory Limitations: no limitations History of Present Illness MD Complaint: Reports shortness of breath Onset (ago): day(s) Context: Reports occurred during exertion Severity: mild Consistency/Duration: constant and progressively worsening Relieving factors: upright position Exacerbating factors: lying flat Known history of: Reports other (Chronic kidney disease stage IV not yet on dialysis) Associated symptoms: Reports orthopnea and other (Leg edema); Denies fever, cough and sputum production Treatment prior to arrival: Reports none Related Data Home Medications Medication Instructions Recorded Confirmed glycopyrrolate-formoterol [Bevespi 2 puff INHALATION QAM AND QPM 06/03/18 Aerosphere] hydrocodone-acetaminophen [[place]] 2 tab PO Q6-8H PRN 06/03/18 11/27/18 levothyroxine 100 mcg PO DAILY 06/03/18 11/27/18 nifedipine 90 mg PO HS 06/03/18 11/27/18 minoxidil 2.5 mg PO DAILY 09/20/18 11/27/18 Previous Rx's Medication Instructions Recorded aspirin 81 mg PO DAILY tab 11/07/18 azithromycin See Label Instructions .ROUTE 11/27/18 .COMPLEX #6 tab benzonatate [Tessalon Perles] 100 mg PO TID PRN #21 cap 11/27/18 Allergies Allergy/AdvReac Type Severity Reaction Status Date / Time penicillin G Allergy Severe Hives Verified 12/31/18 20:01 Sulfa (Sulfonamide Allergy Severe Hives Verified 12/31/18 20:01 Antibiotics) Review of Systems ROS: all other systems reviewed are negative [facility] Medical History Medical History Arteriovenous fistula (Acute) COPD (chronic obstructive pulmonary disease) (Acute) Chronic pain (Acute) ESRD (end stage renal disease) (Acute) Fusion of lumbar spine (Acute) Hepatitis C (Acute) History of anesthesia reaction (Acute) History of coma (Acute) Hypertension (Acute) Hypothyroidism (Acute) Metal bone fixation hardware in place (Acute) Neck pain (Acute) Renal disease (Acute) Surgical History Surgical History H/O abdominoplasty (Acute) History of lumbar fusion (Acute) Social History Social History Substance History: No History of Abuse Second Hand Smoke Exposure: Yes Smoking Status: Former smoker Tobacco Type: Cigarettes How Often Do You Have a Drink Containing Alcohol: Never Recent Travel in [facility] within the Last 8 Weeks: No Recent Out of Country Travel within the Last 8 Weeks: No Immunization History Tetanus Immunization: Unsure Exam Const General: cooperative, healthy appearing, comfortable, no acute distress, well developed and well groomed Orientation: alert, awake and oriented x3 HENMT Head: normal to inspection, normocephalic and atraumatic Eyes Alignment and Position: alignment normal Conjunctivae: conjunctivae normal Sclera: sclerae normal EOM: EOM intact bilaterally Neck Neck: normal visual inspection and full ROM Chest Chest: normal inspection of the chest Resp Effort & Inspection: normal respiratory effort and able to speak in complete sentences Auscultation: rales Cardio Rate: regular rate Rhythm: regular rhythm GI Inspection: normal to inspection Palpation: soft Back/Spine/Pelvis Cervical Spine: cervical ROM normal Thoracic/Lumbar Spine: thoraco-lumbar ROM normal Skin General: no rashes or lesions noted and turgor normal Neuro General: alert, awake, oriented x3, moves all extremities and CN's II-XI intact bilaterally Extrem General: normal to inspection, full ROM and edema (3+) Laterality: bilaterally Psych Appearance: grossly normal Mental Status: mental status grossly normal Speech and Movement: speech and movement normal Mood: congruent mood Affect: normal affect Attitude: cooperative Thought Process: normal Thought Content: normal Judgment: judgment good Course Initial Documented Vital Signs Temperature 98 F 12/31/18 20:04 Pulse Rate 50 L 12/31/18 20:04 Respiratory Rate 20 12/31/18 20:04 Blood Pressure 176/92 H 12/31/18 20:04 Pulse Oximetry 94 L 12/31/18 20:04 Last Documented Vital Signs Temperature 98 F 12/31/18 20:04 Pulse Rate 66 12/31/18 22:51 Respiratory Rate 18 12/31/18 22:51 Blood Pressure 136/72 12/31/18 22:51 Pulse Oximetry 93 L 12/31/18 22:51 Critical Care Time Critical Care Time: Yes Total Critical Care Time: 30 Attestation: Time to perform other separately billable procedures was not included in the critical care time. My time did not include minutes spent treating any other patients simultaneously or on activities that did not directly contribute to the patient's treatment. The services I provided to this patient were to treat and/or prevent clinically significant deterioration due to dyspnea, pulmonary edema by exam I provided critical care services requiring my management, as noted below: Chart data review, documentation time, medication orders and management, vital sign assessments/reviewing monitor data, ordering and reviewing lab tests, ordering and interpreting/reviewing x-rays and diagnostic studies, care of the patient and discussion of the patient with the admitting physicians Medical Decision Making MDM Narrative Medical decision making narrative: This patient presents with increasing dyspnea especially dyspnea on exertion and orthopnea for the last several days. She has a history of chronic kidney disease not yet on dialysis. On exam, she has bibasilar rales and 3+ pretibial pitting edema. She is being treated empirically for pulmonary edema with IV Lasix, IV morphine and Nitropaste. Medical Screen Exam Complete: Yes Emergency Medical Condition: Yes Lab Data Lab results reviewed: Yes I reviewed the patient's lab results. Result diagrams: 12/31/18 21:52 12/31/18 21:52 Lab Results 12/31/18 12/31/18 12/31/18 Range/Units 21:52 21:52 21:52 WBC 8.2 (4.0-11.0) th/mm3 RBC 3.65 L (4.00-5.30) mil/mm3 Hgb 11.9 (11.6-15.3) gm/dL Hct 34.8 L (35.0-46.0) % MCV 95.3 (80.0-100.0) fL MCH 32.5 (27.0-34.0) pg MCHC 34.1 (32.0-36.0) % RDW 14.1 (11.6-17.2) % Plt Count 240 (150-450) th/mm3 MPV 7.3 (7.0-11.0) fL Neut % (Auto) 91.0 H (16.0-70.0) % Lymph % (Auto) 6.8 L (9.0-44.0) % Maury % (Auto) 1.3 (0.0-8.0) % Eos % (Auto) 0.5 (0.0-4.0) % Baso % (Auto) 0.4 (0.0-2.0) % Neut # (Auto) 7.4 (1.8-7.7) th/mm3 Lymph # (Auto) 0.6 L (1.0-4.8) th/mm3 Maury # (Auto) 0.1 (0.0-0.9) th/mm3 Eos # (Auto) 0.0 (0.0-0.4) th/mm3 Baso # (Auto) 0.0 (0.0-0.2) th/mm3 WBC Differential . Differential Comment Auto diff final Sodium 138 (136-145) meq/L Potassium 3.7 (3.5-5.1) meq/L Chloride 106 (98-107) meq/L Carbon Dioxide 22.6 (21.0-32.0) meq/L Anion Gap 9 (5-15) meq/L BUN 42 H (7-18) mg/dL Creatinine 3.89 H (0.50-1.00) mg/dL Estimated GFR 12 L (>89) mL/min Random Glucose 130 H (74-106) mg/dL Calcium 8.7 (8.5-10.1) mg/dL Total Bilirubin 0.5 (0.2-1.0) mg/dL AST 23 (15-37) U/L ALT 15 (10-53) U/L Alkaline Phosphatase 83 (45-117) U/L Troponin I 0.51 H (0.02-0.05) ng/mL B-Natriuretic Peptide 935 H (0-100) pg/mL Total Protein 7.0 (6.4-8.2) g/dL Albumin 2.9 L (3.4-5.0) g/dL Imaging Data Attestation: I personally reviewed and interpreted this imaging study as follows : Radiologist's impression: Chest X-Ray 12/31/18 20:17 CONCLUSION: Minimal parenchymal changes left base with small left pleural effusion. Mild interstitial edema ECG Data EKG Prior to Arrival: No Attestation: I personally reviewed and interpreted this ECG as follows: Discharge Plan Discharge Disposition Patient Disposition: ED Admit(ED Internal Use Only) Discharge Order Discharge Orders: ED Use Only Admit Order (Routine); Ordered 12/31/18 Ordered By: Rajwinder Faulkner Discharge Details Diagnosis: Pulmonary edema, Elevated troponin, Chronic kidney failure Physicians Team ED Provider: Rajwinder Faulkner Primary Care Provider: Merlin Vidales Attending Provider: Gissel Ramirez Status ED Status: Admitted Patient
--- NOTE | 2018-12-31 21:07 | XR ---
EXAM DATE: 12/31/2018 9:00 PM EST AGE/SEX: 53 years / Female INDICATIONS: Short of breath. CLINICAL DATA: This is the patient's initial encounter. Patient reports that signs and symptoms have been present for 1 day and indicates a pain score of 0/10. MEDICAL/SURGICAL HISTORY: Chronic obstructive pulmonary disease. None. COMPARISON: [facility] [place], CHEST 1V SINGLE AP, 09/23/2018. . FINDINGS: The heart is enlarged. There is mild interstitial edema present. There are minimal parenchymal change s left base with small left pleural effusion.. There is no pneumothorax. CONCLUSION: Minimal parenchymal changes left base with small left pleural effusion. Mild interstitial edema Electronically signed by: Ammon Chu MD Board Certified Radiologist 12/31/2018 9:05 PM EST
[2018-12-31 22:03] LABS: Baso % (Auto) 0.4 % (0.0-2.0); Eos % (Auto) 0.5 % (0.0-4.0); Hematocrit 34.8 % (35.0-46.0); Hemoglobin 11.9 gm/dL (11.6-15.3); Lymph # (Auto) 0.6 th/mm3 (1.0-4.8); Lymph % (Auto) 6.8 % (9.0-44.0); Mean Corpuscular HGB Conc 34.1 % (32.0-36.0); Mean Corpuscular Hemoglobin 32.5 pg (27.0-34.0); Mean Corpuscular Volume 95.3 fL (80.0-100.0); Mean Platelet Volume 7.3 fL (7.0-11.0); Mono # (Auto) 0.1 th/mm3 (0.0-0.9); Mono % (Auto) 1.3 % (0.0-8.0); Neut # (Auto) 7.4 th/mm3 (1.8-7.7); Platelet Count 240 th/mm3 (150-450); Red Blood Count 3.65 mil/mm3 (4.00-5.30); Red Cell Distribution Width 14.1 % (11.6-17.2); White Blood Count 8.2 th/mm3 (4.0-11.0)
[2018-12-31 22:18] LABS: Alanine Aminotransferase 15 U/L (10-53); Albumin 2.9 g/dL (3.4-5.0); Anion Gap 9 meq/L (5-15); Aspartate Aminotransferase 23 U/L (15-37); Blood Urea Nitrogen 42 mg/dL (7-18); Calcium 8.7 mg/dL (8.5-10.1); Carbon Dioxide 22.6 meq/L (21.0-32.0); Chloride 106 meq/L (98-107); Glomerular Filtration Rate 12 mL/min (>89); Glucose,Random 130 mg/dL (74-106); Potassium 3.7 meq/L (3.5-5.1); Sodium 138 meq/L (136-145)
[2018-12-31 22:22] LABS: Alkaline Phosphatase 83 U/L (45-117); Troponin I 0.51 ng/mL (0.02-0.05)
[2018-12-31] MEDS ORDERED: Heparin Drip 25,000 UNIT/250 ML BAG IV.CONT PRN (22:35)
[2018-12-31] MEDS ORDERED: Heparin 10,000 UNITS/10 ML Vial (for IV use) IV.PUSH STA (22:35)
[2018-12-31 23:06] LABS: Activated Partial Thrombo Time 27.8 sec (23.4-31.7); Prothrombin Time 10.5 sec (9.8-11.6)
[2018-12-31] MEDS ORDERED: Benzonatate 100 MG Capsule PO PRN (23:55)
--- NOTE | 2019-01-01 00:43 | P.HP ---
History of Present Illness Service: [facility] Primary Care Physician: Merlin Vidales MD History of Present Illness: 53-year-old female with a past medical history significant for chronic kidney disease, COPD, hypertension, hypothyroidism and hepatitis C presents to the emergency department for evaluation of shortness of breath. The patient reports she felt as if her blood pressure was elevated and was unable to breathe. She reports walking to the mailbox and completely losing her breath. She also has 1 week of bilateral lower extremity edema which has never occurred before. She denies any chest pain. No abdominal pain. No nausea/vomiting/ diarrhea. No fever/chills. No focal neurologic deficits. Inpatient Certification: I certify that the inpatient services were ordered in accordance with Medicare regulations governing the order. This includes certification that hospital inpatient services are reasonable and necessary and in the case of services not specified as inpatient-only under 42 CFR 419.22(n), that they are appropriately provided as inpatient services in accordance to with the 2-midnight benchmark under 43 CFR 412.3(e) Estimated Total Length of Stay (Days): 3 Plans for Post Hospital Care: Not yet determined Review of Systems All other systems reviewed negative except as stated in HPI [facility] - History History Provided By: Patient, Medical Record - Medical History Medical History: Medical History (Last Reviewed 01/01/19 @ 00:35 by Gissel Ramirez MD) Arteriovenous fistula COPD (chronic obstructive pulmonary disease) Chronic pain ESRD (end stage renal disease) Fusion of lumbar spine Hepatitis C History of anesthesia reaction History of coma Hypertension Hypothyroidism Metal bone fixation hardware in place Neck pain Renal disease - Surgical History Surgical History: Surgical History (Last Reviewed 01/01/19 @ 00:35 by Gissel Ramirez MD) H/O abdominoplasty History of lumbar fusion - Family History Family History: Family History (Last Updated 01/01/19 @ 00:35 by Gissel Ramirez MD) Other Diabetes mellitus - Social History I have reviewed the patient's Social History: Yes - Tobacco History Second Hand Smoke Exposure: Yes Smoking Status: Former smoker Tobacco Type: Cigarettes - Alcohol History How Often Do You Have a Drink Containing Alcohol: Never - Substance Use History Substance History: No History of Abuse - Travel History Recent Travel in the [place] Within the Last 8 Weeks: No Recent Travel Out of the Country Within the Last 8 Weeks: No - Immunization History Tetanus Immunization: Unsure Medications and Allergies Active Medications: Active Medications Aspirin (Aspirin) 81 mg PO DAILY TERRI Benzonatate (Tessalon Perles) 100 mg PO TID PRN PRN Reason: cough Furosemide (Lasix Inj) 40 mg IV.PUSH BID@0900,1800 TERRI Heparin Sodium (Porcine) (Heparin Inj) 2,500 units IV.PUSH UNSCH PRN PRN Reason: aPTT 25-39 Heparin Sodium/Dextrose (Heparin/D5w 25,000 U/250 Ml) 25,000 unit in 250 mls @ 0 mls/hr IV.CONT TITRATE PRN; Protocol PRN Reason: Per Protocol Last Admin: 12/31/18 23:50 Dose: 700 units/hr, 7 mls/hr Levothyroxine Sodium (Synthroid) 100 mcg PO DAILY@0600 TERRI Minoxidil (Loniten) 2.5 mg PO DAILY TERRI Nifedipine (Procardia Xl) 90 mg PO HS [facility] Patient Own Medication(( Glycopyrrolate- Formoterol [Bevespi Aerosphere] 2 Puff 0 each INH BID TERRI Potassium Chloride (Kcl) 10 meq PO BID TERRI Sodium Chloride (Ns Flush) 2 ml IV.FLUSH PRN PRN PRN Reason: FLUSH AFTER USING IV ACCESS Last Admin: 12/31/18 22:02 Dose: 2 ml Sodium Chloride (Ns Flush) 2 ml IV.FLUSH BID TERRI Sodium Chloride (Ns Flush) 2 ml IV.FLUSH UNSCH PRN PRN Reason: FLUSH AFTER USING IV ACCESS Allergies Allergy/AdvReac Type Severity Reaction Status Date / Time penicillin G Allergy Severe Hives Verified 12/31/18 20:01 Sulfa (Sulfonamide Allergy Severe Hives Verified 12/31/18 20:01 Antibiotics) Home Medications Medication Instructions Recorded Confirmed Type glycopyrrolate-formoterol [Bevespi 2 puff INHALATION QAM AND QPM 06/03/18 History Aerosphere] hydrocodone-acetaminophen [[place]] 2 tab PO Q6-8H PRN 06/03/18 12/31/18 History levothyroxine 100 mcg PO DAILY 06/03/18 12/31/18 History nifedipine 90 mg PO HS 06/03/18 12/31/18 History minoxidil 2.5 mg PO DAILY 09/20/18 12/31/18 History Exam Vital signs: Vital Signs 12/31/18 20:04 12/31/18 22:02 12/31/18 22:04 Temperature 98 F Pulse Rate 50 L 74 Respiratory Rate 20 18 Blood Pressure 176/92 H 141/72 H Pulse Oximetry 94 L 90 L 90 L 12/31/18 22:10 12/31/18 22:51 12/31/18 23:53 Temperature Pulse Rate 66 81 Respiratory Rate 18 18 18 Blood Pressure 136/72 160/75 H Pulse Oximetry 93 L 95 01/01/19 00:27 Temperature Pulse Rate 68 Respiratory Rate 18 Blood Pressure 135/70 Pulse Oximetry 95 Intake & Output 12/31/18 12/31/18 01/01/19 06:59 18:59 06:59 Weight 56.699 kg Narrative: Gen.: No acute distress Head: Normocephalic. Atraumatic. EENT: Pupils equal round and reactive to light. Nose without drainage. Airway intact. Throat without injection. Cardiovascular: Regular rate and rhythm. No murmurs, rubs or gallops. Respiratory: Crackles in the bases Abdomen: Soft, nontender, nondistended. No peritoneal signs. Musculoskeletal: No gross deformities. 2+ bilateral pitting lower extremity edema Skin: No obvious rashes or erythema. Neuro: Sensory and motor grossly intact. Cranial nerves II through XII grossly intact. Results - Labs CBC & Chem 7: 12/31/18 21:52 12/31/18 21:52 Labs: Laboratory Results - last 24 hr 12/31/18 12/31/18 12/31/18 21:52 21:52 21:52 WBC 8.2 RBC 3.65 L Hgb 11.9 Hct 34.8 L MCV 95.3 MCH 32.5 MCHC 34.1 RDW 14.1 Plt Count 240 MPV 7.3 Neut % (Auto) 91.0 H Lymph % (Auto) 6.8 L [place] % (Auto) 1.3 Eos % (Auto) 0.5 Baso % (Auto) 0.4 Neut # (Auto) 7.4 Lymph # (Auto) 0.6 L [place] # (Auto) 0.1 Eos # (Auto) 0.0 Baso # (Auto) 0.0 WBC Differential . Differential Comment Auto diff final PT INR APTT Sodium 138 Potassium 3.7 Chloride 106 Carbon Dioxide 22.6 Anion Gap 9 BUN 42 H Creatinine 3.89 H Estimated GFR 12 L Random Glucose 130 H Calcium 8.7 Total Bilirubin 0.5 AST 23 ALT 15 Alkaline Phosphatase 83 Troponin I 0.51 H B-Natriuretic Peptide 935 H Total Protein 7.0 Albumin 2.9 L 12/31/18 22:45 WBC RBC Hgb Hct MCV MCH MCHC RDW Plt Count MPV Neut % (Auto) Lymph % (Auto) [place] % (Auto) Eos % (Auto) Baso % (Auto) Neut # (Auto) Lymph # (Auto) [place] # (Auto) Eos # (Auto) Baso # (Auto) WBC Differential Differential Comment PT 10.5 INR 1.0 APTT 27.8 Sodium Potassium Chloride Carbon Dioxide Anion Gap BUN Creatinine Estimated GFR Random Glucose Calcium Total Bilirubin AST ALT Alkaline Phosphatase Troponin I B-Natriuretic Peptide Total Protein Albumin - Imaging Impressions Chest X-Ray 12/31/18 20:17 CONCLUSION: Minimal parenchymal changes left base with small left pleural effusion. Mild interstitial edema Caprini VTE Risk Assessment Caprini VTE Risk Assessment: No/Low Risk (score <= 1) Caprini Risk Assessment Model: Point Value = 1 Point Value = 2 Point Value = 3 Point Value = 5 Age 41-60 Minor surgery BMI > 25 kg/m2 Swollen legs Varicose veins or History of unexplained or recurrent spontaneous Oral contraceptives or hormone replacement Sepsis (< 1 month) Serious lung disease, including pneumonia (< 1 month) Abnormal pulmonary function Acute myocardial infarction Congestive heart failure (< 1 month) History of inflammatory bowel disease Medical patient at bed rest Age 61-74 Arthroscopic surgery Major open surgery (> 45 min) Laparoscopic surgery (> 45 min) Malignancy Confined to bed (> 72 hours) Immobilizing plaster cast Central venous access Age >= 75 History of VTE Family history of VTE Factor V Leiden Prothrombin [id number] Lupus anticoagulant Anticardiolipin antibodies Elevated serum homocysteine Heparin-induced thrombocytopenia Other congenital or acquired thrombophilia Stroke (< 1 month) Elective arthroplasty Hip, pelvis, or leg fracture Acute spinal cord injury (< 1 month) Prophylaxis Regimen: Total Risk Factor Score Risk Level Prophylaxis Regimen 0-1 Low Early ambulation 2 Moderate Order ONE of the following: *Sequential Compression Device (SCD) *Heparin 5000 units SQ BID 3-4 Higher Order ONE of the following medications: *Heparin 5000 units SQ TID *Enoxaparin/Lovenox 40 mg SQ daily (WT < 150 kg, CrCl > 30 mL/min) *Enoxaparin/Lovenox 30 mg SQ daily (WT < 150 kg, CrCl > 10-29 mL/min) *Enoxaparin/Lovenox 30 mg SQ BID (WT < 150 kg, CrCl > 30 mL/min) AND/OR *Sequential Compression Device (SCD) 5 or more Highest Order ONE of the following medications: *Heparin 5000 units SQ TID (Preferred with Epidurals) *Enoxaparin/Lovenox 40 mg SQ daily (WT < 150 kg, CrCl > 30 mL/min) *Enoxaparin/Lovenox 30 mg SQ daily (WT < 150 kg, CrCl > 10-29 mL/min) *Enoxaparin/Lovenox 30 mg SQ BID (WT < 150 kg, CrCl > 30 mL/min) AND *Sequential Compression Device (SCD) Assessment and Plan - Plan Assessment/plan: 1. Shortness of breath/? New onset congestive heart failure BNP 935 Chest x-ray significant for mild interstitial pulmonary edema, personally reviewed Echo done in 2017 showed an EF of 55-60% New onset bilateral lower extremity pitting edema Echo pending IV Lasix Nephrology consulted to assist with diuresis in the setting of chronic kidney disease 2. Elevated troponin Patient's troponin 0.51 Likely secondary to renal failure EKG without ST segment elevation or depression, personally reviewed Patient denies chest pain Started on heparin drip by ED Cardiology consulted, appreciate assistance Serial troponins/EKGs 3. 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 Fung consulted, appreciate assistance 4. Hepatitis C Continue outpatient follow-up 5. COPD Duo nebs Supplemental oxygen as needed 6. Hypertension/hypothyroidism Continue home medications FEN N.p.o. Electrolytes: Monitor and replete as needed Heparin
[2019-01-01] MEDS ORDERED: Heparin 10,000 UNITS/10 ML Vial (for IV use) IV.PUSH PRN (04:35)
[2019-01-01 05:16] LABS: Hematocrit 32.5 % (35.0-46.0); Mean Corpuscular Hemoglobin 31.9 pg (27.0-34.0); Mean Corpuscular Volume 93.8 fL (80.0-100.0); Mean Platelet Volume 7.4 fL (7.0-11.0); Platelet Count 229 th/mm3 (150-450); Red Blood Count 3.46 mil/mm3 (4.00-5.30); Red Cell Distribution Width 13.9 % (11.6-17.2); White Blood Count 3.1 th/mm3 (4.0-11.0)
[2019-01-01 05:37] LABS: Calcium 8.5 mg/dL (8.5-10.1); Carbon Dioxide 22.8 meq/L (21.0-32.0)
[2019-01-01 05:40] LABS: Troponin I 0.46 ng/mL (0.02-0.05)
[2019-01-01] MEDS: Levothyroxine 100 MCG Tablet PO SCH (06:40)
--- NOTE | 2019-01-01 07:44 | P.CONCA ---
History of Present Illness Service: cardiology service call Consult date: 01/01/19 Requesting Physician: Areli Bryant Reason for Consult: elevated trop Primary Care Provider: Merlin Vidales MD History of Present Illness: 53-year-old female with CKD stage V, COPD, HTN who presented for shortness of breath. The patient states that for 2 days prior to admission she had worsening shortness of breath. She came to the ED she states because her SBP went up to 285. She has been having worsening leg swelling for the past week. She denies any chest pain. Chief complaints at this time are back pain and lack of sleep. Upon presentation to the ED she had chest x-ray which showed bibasilar edema. Troponin 0.51, 0.46; started on heparin gtt. and cardiology consulted. EKG with NSR, poor R wave progression; similar to previous. Patient 's survey cad technician is Dr. Fung, consult pending. She already has AV fistula in place but no plans for dialysis at this time as she is hoping for kidney transplant. Reports she just got over treatment for pneumonia. She no longer smokes. She denies any prior history of heart disease. Review of Systems All other systems reviewed negative except as stated in HPI [facility] - History History Provided By: Patient, Medical Record - Medical History Medical History: Medical History (Last Reviewed 01/01/19 @ 00:35 by Gissel Ramirez MD) Arteriovenous fistula COPD (chronic obstructive pulmonary disease) Chronic pain ESRD (end stage renal disease) Fusion of lumbar spine Hepatitis C History of anesthesia reaction History of coma Hypertension Hypothyroidism Metal bone fixation hardware in place Neck pain Renal disease - Surgical History Surgical History: Surgical History (Last Reviewed 01/01/19 @ 00:35 by Gissel Ramirez MD) H/O abdominoplasty History of lumbar fusion - Family History Family History: Family History (Last Updated 01/01/19 @ 00:35 by Gissel Ramirez MD) Other Diabetes mellitus - Tobacco History Second Hand Smoke Exposure: Yes Tobacco Use In Past 30 Days: No Smoking Status: Former smoker Tobacco Type: Cigarettes - Alcohol History How Often Do You Have a Drink Containing Alcohol: Never - Substance Use History Substance History: No History of Abuse - Travel History Recent Travel in the [place] Within the Last 8 Weeks: No Recent Travel Out of the Country Within the Last 8 Weeks: No - Immunization History Tetanus Immunization: Unsure Medications and Allergies Allergies Allergy/AdvReac Type Severity Reaction Status Date / Time penicillin G Allergy Severe Hives Verified 12/31/18 20:01 Sulfa (Sulfonamide Allergy Severe Hives Verified 12/31/18 20:01 Antibiotics) Home Medications Medication Instructions Recorded Confirmed Type glycopyrrolate-formoterol [Bevespi 2 puff INHALATION QAM AND QPM 06/03/18 History Aerosphere] hydrocodone-acetaminophen [[place]] 2 tab PO Q6-8H PRN 06/03/18 12/31/18 History levothyroxine 100 mcg PO DAILY 06/03/18 12/31/18 History nifedipine 90 mg PO HS 06/03/18 12/31/18 History minoxidil 2.5 mg PO DAILY 09/20/18 12/31/18 History Active Medications: Active Medications Albuterol (Duoneb Neb (Prn)) 1 ampul NEB Q4HR NEB PRN PRN Reason: SOB/Wheezing Aspirin (Aspirin) 81 mg PO DAILY TERRI Benzonatate (Tessalon Perles) 100 mg PO TID PRN PRN Reason: cough Furosemide (Lasix Inj) 40 mg IV.PUSH BID@0900,1800 TERRI Heparin Sodium (Porcine) (Heparin Inj) 2,500 units IV.PUSH UNSCH PRN PRN Reason: aPTT 25-39 Heparin Sodium/Dextrose (Heparin/D5w 25,000 U/250 Ml) 25,000 unit in 250 mls @ 0 mls/hr IV.CONT TITRATE PRN; Protocol PRN Reason: Per Protocol Last Admin: 12/31/18 23:50 Dose: 700 units/hr, 7 mls/hr Levothyroxine Sodium (Synthroid) 100 mcg PO DAILY@0600 [facility] Last Admin: 01/01/19 06:40 Dose: 100 mcg Minoxidil (Loniten) 2.5 mg PO DAILY TERRI Nifedipine (Procardia Xl) 90 mg PO HS [facility] Patient Own Medication(( Glycopyrrolate- Formoterol [Bevespi Aerosphere] 2 Puff 0 each INH BID TERRI Potassium Chloride (Kcl) 10 meq PO BID TERRI Sodium Chloride (Ns Flush) 2 ml IV.FLUSH PRN PRN PRN Reason: FLUSH AFTER USING IV ACCESS Last Admin: 12/31/18 22:02 Dose: 2 ml Sodium Chloride (Ns Flush) 2 ml IV.FLUSH BID TERRI Sodium Chloride (Ns Flush) 2 ml IV.FLUSH UNSCH PRN PRN Reason: FLUSH AFTER USING IV ACCESS Exam Vital signs: Vital Signs 12/31/18 20:04 12/31/18 22:02 12/31/18 22:04 Temperature 98 F Pulse Rate 50 L 74 Respiratory Rate 20 18 Blood Pressure 176/92 H 141/72 H Pulse Oximetry 94 L 90 L 90 L 12/31/18 22:10 12/31/18 22:51 12/31/18 23:53 Temperature Pulse Rate 66 81 Respiratory Rate 18 18 18 Blood Pressure 136/72 160/75 H Pulse Oximetry 93 L 95 01/01/19 00:27 01/01/19 01:43 01/01/19 02:28 Temperature 98.0 F Pulse Rate 68 76 84 Respiratory Rate 18 18 18 Blood Pressure 135/70 136/68 139/74 Pulse Oximetry 95 97 96 01/01/19 04:00 Temperature 97.5 F L Pulse Rate 74 Respiratory Rate Blood Pressure 137/78 Pulse Oximetry 96 Intake & Output 12/31/18 01/01/19 01/01/19 18:59 06:59 18:59 Intake Total 0 / 0 Output Total 400 / 400 Balance -400 / -400 Weight 129 lb 10.109 oz Intake: Oral 0 / 0 Output: Urine 400 / 400 Other: Weight On Admission 129 lb 10.109 oz Narrative: GENERAL: Well-developed well-nourished. In no acute distress. NECK: No carotid bruits. No JVD. CARDIOVASCULAR: Regular rate and rhythm. No murmur appreciated. RESPIRATORY: No accessory muscle use. Diffuse wheezing. MUSCULOSKELETAL: No clubbing or cyanosis. 3+ lower extremity edema. NEUROLOGICAL: Awake and alert. Normal speech. Results 01/01/19 04:54 01/01/19 04:54 Cardiac Enzymes 12/31/18 12/31/18 01/01/19 Range/Units 21:52 21:52 04:54 AST 23 (15-37) U/L Troponin I 0.51 H 0.46 H (0.02-0.05) ng/mL B-Natriuretic Peptide 935 H (0-100) pg/mL Coagulation 12/31/18 12/31/18 01/01/19 Range/Units 21:52 22:45 04:54 PT 10.5 (9.8-11.6) sec APTT 27.8 35.6 H D (23.4-31.7) sec B-Natriuretic Peptide 935 H (0-100) pg/mL CBC 12/31/18 01/01/19 Range/Units 21:52 04:54 WBC 8.2 3.1 L D (4.0-11.0) th/mm3 RBC 3.65 L 3.46 L (4.00-5.30) mil/mm3 Hgb 11.9 11.0 L (11.6-15.3) gm/dL Hct 34.8 L 32.5 L (35.0-46.0) % Plt Count 240 229 (150-450) th/mm3 Neut # (Auto) 7.4 (1.8-7.7) th/mm3 Lymph # (Auto) 0.6 L (1.0-4.8) th/mm3 [place] # (Auto) 0.1 (0.0-0.9) th/mm3 Eos # (Auto) 0.0 (0.0-0.4) th/mm3 Baso # (Auto) 0.0 (0.0-0.2) th/mm3 Comprehensive Metabolic Panel 12/31/18 01/01/19 Range/Units 21:52 04:54 Sodium 138 140 (136-145) meq/L Potassium 3.7 4.0 (3.5-5.1) meq/L Chloride 106 107 (98-107) meq/L Carbon Dioxide 22.6 22.8 (21.0-32.0) meq/L BUN 42 H 45 H (7-18) mg/dL Creatinine 3.89 H 4.01 H (0.50-1.00) mg/dL Calcium 8.7 8.5 (8.5-10.1) mg/dL AST 23 (15-37) U/L ALT 15 (10-53) U/L Alkaline Phosphatase 83 (45-117) U/L Total Protein 7.0 (6.4-8.2) g/dL Albumin 2.9 L (3.4-5.0) g/dL Intake and Output 12/31/18 01/01/19 01/01/19 22:59 06:59 14:59 Intake Total 0 / 0 Output Total 400 / 400 Balance -400 / -400 Intake: Oral 0 / 0 Output: Urine 400 / 400 Other: Weight 125 lb 129 lb 10.109 oz Weight On Admission 129 lb 10.109 oz - Imaging and Cardiology Imaging: Impressions Chest X-Ray 12/31/18 20:17 CONCLUSION: Minimal parenchymal changes left base with small left pleural effusion. Mild interstitial edema Assessment and Plan - Plan 53-year-old female with CKD stage V, COPD, HTN who presented for shortness of breath and hypertensive emergency with SBP 280mmHg at home. Dyspnea: Suspect multifactorial due to acute COPD exacerbation and volume overload/pulmonary edema. COPD treatment per primary team. Diuresis per nephrology. Echocardiogram has been ordered which is reasonable. Elevated troponin: Troponins elevated in the intermediate range and flat, suspect demand mediated, probably due to decreased glomerular filtration rate. EKG with no acute changes and no chest pain. Patient has had an ischemic work up with normal nuclear stress test in past 3 months with her primary c d reactor operator, Dr Amaral as an oupatient. No further evaluation required at this time. With no evidence of ACS, will stop heparin gtt. will sign off. call with any further questions please. Discussed Condition With: Patient, Dr. Blair
[2019-01-01] MEDS: Potassium Chloride 10 MEQ ER Capsule PO SCH ×2 (08:56→20:53)
[2019-01-01] MEDS: Minoxidil 2.5 MG Tablet PO SCH (08:58)
[2019-01-01] MEDS ORDERED: Aspirin 325 MG Tablet PO SCH (09:00)
--- NOTE | 2019-01-01 10:00 | P.CONNP ---
<lEma Russo - Last Filed: 01/01/19 13:16> History of Present Illness Consult date: 01/01/19 Requesting Physician: Areli Bryant Reason for Consult: Chronic kidney disease, stage V known to Dr. Fung. Assistance with diures Primary Care Provider: Merlin Vidales MD Chief Complaint: Shortness of breath History of Present Illness: This is a pleasant 53-year-old female who presented with worsening shortness of breath with exertion. She has a medical history of CKD, COPD, hypertension, hypothyroidism, hep C. She states over the last couple of days she has noticed increased shortness of breath with walking to her mailbox which was not present before. States she has also had a bilateral lower extremity swelling that has been present for a few weeks now. This concerned her, and she presented to the ER. She presented to the ER with hypertensive emergency with systolic as high as 280. Current blood pressure is 146/76. Denies any chest pain. Denies any abdominal pain. Denies any nausea or vomiting. Denies any diarrhea. Denies any fever. Denies any palpitations. She is a current patient of Dr. Fung. She was last seen in the office in October. At that time her creatinine was 3.3 and GFR of 15. Possible dialysis plans have been discussed with her. She does have a upper right arm extremity fistula with positive bruit and thrill. She has received thus far 2 doses of IV Lasix 40 mg. She states she is voiding. She states her shortness of breath has improved somewhat. Currently there appears to be no swelling to her lower extremities. She states she was diagnosed with pneumonia about 6 weeks ago and treated with antibiotics and steroids. 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 Persaud. Chest x-ray that was done in the ER revealed a small left pleural effusion with mild interstitial edema. BNP of 935. BUN and creatinine yesterday of 42 and 3.89, and currently at 45 and 4.01. Current GFR is 12. Cardiology has evaluated her. Last echocardiogram in 2017 revealed an EF of 55-60%. She had a normal stress test 3 months ago that was normal. Dr. Amaral is her drop worker. Troponin of 0.51 that has trended down to 0.46. Review of Systems All other systems reviewed negative except as stated in HPI PMFSH - History History Provided By: Patient, Medical Record - Medical History Medical History: Medical History (Last Reviewed 01/01/19 @ 13:32 by Elma Russo APRN) Arteriovenous fistula COPD (chronic obstructive pulmonary disease) Chronic pain ESRD (end stage renal disease) Fusion of lumbar spine Hepatitis C History of anesthesia reaction History of coma Hypertension Hypothyroidism Metal bone fixation hardware in place Neck pain Renal disease - Surgical History Surgical History: Surgical History (Last Reviewed 01/01/19 @ 13:33 by Elma Russo APRN) H/O abdominoplasty History of lumbar fusion - Family History Family History: Family History (Last Reviewed 01/01/19 @ 13:33 by Elma Russo APRN) Other Diabetes mellitus - Social History I have reviewed the patient's Social History: Yes - Tobacco History Second Hand Smoke Exposure: Yes Tobacco Use In Past 30 Days: No Smoking Status: Former smoker Tobacco Type: Cigarettes Packs Per Day: 1.5 - Alcohol History How Often Do You Have a Drink Containing Alcohol: Never - Substance Use History Substance History: No History of Abuse, Past History (States past history of IV drug use 35 years ago. Denies any current IV drug use) - Travel History Recent Travel in the [place] Within the Last 8 Weeks: No Recent Travel Out of the Country Within the Last 8 Weeks: No - Immunization History Tetanus Immunization: Unsure Medications and Allergies Allergies Allergy/AdvReac Type Severity Reaction Status Date / Time penicillin G Allergy Severe Hives Verified 12/31/18 20:01 Sulfa (Sulfonamide Allergy Severe Hives Verified 12/31/18 20:01 Antibiotics) Home Medications Medication Instructions Recorded Confirmed Type glycopyrrolate-formoterol [Bevespi 2 puff INHALATION QAM AND QPM 06/03/18 History Aerosphere] hydrocodone-acetaminophen [[place]] 2 tab PO Q6-8H PRN 06/03/18 12/31/18 History levothyroxine 100 mcg PO DAILY 06/03/18 12/31/18 History nifedipine 90 mg PO HS 06/03/18 12/31/18 History minoxidil 2.5 mg PO DAILY 09/20/18 12/31/18 History Active Medications: Active Medications Hydrocodone Bitart/Acetaminophen ([place] 10/325) 1 tab PO Q4H PRN PRN Reason: pain 7-10 Hydrocodone Bitart/Acetaminophen ([place] 5/325) 1 tab PO Q4H PRN PRN Reason: pain 3-6 Albuterol (Duoneb Neb (Prn)) 1 ampul NEB Q4HR NEB PRN PRN Reason: SOB/Wheezing Aspirin (Aspirin Chew) 81 mg PO DAILY [facility] Last Admin: 01/01/19 08:55 Dose: 81 mg Benzonatate (Tessalon Perles) 100 mg PO TID PRN PRN Reason: cough Furosemide (Lasix Inj) 40 mg IV.PUSH BID@0900,1800 [facility] Last Admin: 01/01/19 08:56 Dose: 40 mg Heparin Sodium (Porcine) (Heparin Inj) 2,500 units IV.PUSH UNSCH PRN PRN Reason: aPTT 25-39 Levothyroxine Sodium (Synthroid) 100 mcg PO DAILY@0600 [facility] Last Admin: 01/01/19 06:40 Dose: 100 mcg Minoxidil (Loniten) 2.5 mg PO DAILY [facility] Last Admin: 01/01/19 08:58 Dose: 2.5 mg Nifedipine (Procardia Xl) 90 mg PO [facility] Patient Own Medication(( Glycopyrrolate- Formoterol [Bevespi Aerosphere] 2 Puff 0 each INH BID [facility] Potassium Chloride (Kcl) 10 meq PO BID [facility] Last Admin: 01/01/19 08:56 Dose: 10 meq Sodium Chloride (Ns Flush) 2 ml IV.FLUSH PRN PRN PRN Reason: FLUSH AFTER USING IV ACCESS Last Admin: 12/31/18 22:02 Dose: 2 ml Sodium Chloride (Ns Flush) 2 ml IV.FLUSH BID [facility] Last Admin: 01/01/19 08:57 Dose: 2 ml Sodium Chloride (Ns Flush) 2 ml IV.FLUSH UNSCH PRN PRN Reason: FLUSH AFTER USING IV ACCESS Exam Vital signs: Vital Signs 12/31/18 20:04 12/31/18 22:02 12/31/18 22:04 Temperature 98 F Pulse Rate 50 L 74 Respiratory Rate 20 18 Blood Pressure 176/92 H 141/72 H Pulse Oximetry 94 L 90 L 90 L 12/31/18 22:10 12/31/18 22:51 12/31/18 23:53 Temperature Pulse Rate 66 81 Respiratory Rate 18 18 18 Blood Pressure 136/72 160/75 H Pulse Oximetry 93 L 95 01/01/19 00:27 01/01/19 01:43 01/01/19 02:28 Temperature 98.0 F Pulse Rate 68 76 84 Respiratory Rate 18 18 18 Blood Pressure 135/70 136/68 139/74 Pulse Oximetry 95 97 96 01/01/19 04:00 01/01/19 08:41 01/01/19 08:56 Temperature 97.5 F L 97.8 F Pulse Rate 74 76 Respiratory Rate 16 Blood Pressure 137/78 142/76 H Pulse Oximetry 96 94 L 98 Intake & Output 12/31/18 01/01/19 01/01/19 18:59 06:59 18:59 Intake Total 0 / 0 50 / 50 Output Total 400 / 400 Balance -400 / -400 50 / 50 Weight 58.8 kg Intake: IV 50 / 50 Heparin/D5W 25,000 U/250 mL 25, 50 / 50 000 unit In 250 ml @ Per Protocol IV.CONT TITRATE PRN Rx #:[id number] Oral 0 / 0 Output: Urine 400 / 400 Other: Weight On Admission 58.8 kg Narrative: GENERAL: Appears to be in no acute distress. Resting comfortably. SKIN: Warm and dry, intact, No lesions seen. HEAD: Normocephalic. EYES: No scleral icterus. No injection or drainage. Pupils are equal and reactive to light. NECK: Supple, trachea midline. No JVD or lymphadenopathy. CARDIOVASCULAR: Regular rate and rhythm without murmurs, gallops, or rubs, no edema present. RESPIRATORY: Breath sounds with inspiratory wheezing throughout and fine crackles at bases. No accessory muscle use. GASTROINTESTINAL: Abdomen soft, non-tender, nondistended. Postive BS in all 4 quadrants. BACK: Nontender without obvious deformity. No CVA tenderness. Results - Lab Results 01/01/19 04:54 01/01/19 04:54 Chest x-ray revealed small left pleural effusion with mild interstitial edema Most recent lab results Calcium 8.5 mg/dL (8.5-10.1) 01/01/19 04:54 Assessment and Plan - Assessment (1) Chronic kidney failure Code(s): N18.9 - Chronic kidney disease, unspecified Status: Chronic Plan: Currently a patient of Dr. Lamberts, stage V kidney disease. Presented with worsening shortness of breath with exertion over the past couple days Associated with bilateral lower extremity swelling, although currently no swelling is seen. BUN 42, creatinine 3.89 yesterday. BUN 45 creatinine 4.01 today. BNP 934. 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 She had pneumonia 6 weeks ago, treated with antibiotics and steroids. Sees Dr. Persaud for COPD management. Current chest x-ray reveals left pleural effusion, mild interstitial edema. She has had 2 doses of IV Lasix thus far, she states she is voiding. Only 400 cc of urine documented thus far. Not sure if accurate. Last echocardiogram 2016 revealed an EF of 55-60% Last stress test was about 3 months ago which was normal, Dr. Amaral is her drop worker. Mildly elevated troponin 0 0.51-0.46 likely due to renal failure Cardiology has signed off She does have a right upper fistula in place, positive bruit and thrill She has not had dialysis as of yet Plans for possible kidney transplant in the future, she states her daughter will be the donor. Recently diagnosed with hep C. She states she has an appointment with Dr. Miguel tomorrow at 1:00. She does have a history of IV drug use she states 30-35 years ago. Denies any current IV drug use. -Likely shortness of breath is multifactorial with current COPD and stage V chronic kidney disease that has worsened, volume overload -Continue to diuresis -Strict I's and O's -Monitor electrolytes, volume status -Consult vascular surgery to assess for readiness of AV fishula if dialysis needed. (2) Hypertension Code(s): I10 - Essential (primary) hypertension Status: Chronic Plan: Presented with hypertensive emergency Blood pressure much improved, 146/76 Likely related to volume overload in the setting of worsening chronic renal disease -Continue to monitor -Continue diuresing -She takes Procardia 90 mg at at bedtime, continue (3) Hepatitis C Code(s): B19.20 - Unspecified viral hepatitis C without hepatic coma Status: Acute Plan: New diagnosis of hep C She states she has an appointment with Dr. Miguel tomorrow as an outpatient at [address] Arias does not come to [place] -This can be worked up as an outpatient (4) COPD (chronic obstructive pulmonary disease) Code(s): J44.9 - Chronic obstructive pulmonary disease, unspecified Status: Acute Plan: Currently on nasal cannula. -Management per pulmonary <Dena Fung - Last Filed: 01/01/19 23:51> History of Present Illness Primary Care Provider: Melrin Vidales MD [facility] - Medical History Medical History: Medical History (Last Reviewed 01/01/19 @ 13:32 by Elma Russo APRN) Arteriovenous fistula COPD (chronic obstructive pulmonary disease) Chronic pain ESRD (end stage renal disease) Fusion of lumbar spine Hepatitis C History of anesthesia reaction History of coma Hypertension Hypothyroidism Metal bone fixation hardware in place Neck pain Renal disease - Surgical History Surgical History: Surgical History (Last Reviewed 01/01/19 @ 13:33 by Elma Russo APRN) H/O abdominoplasty History of lumbar fusion - Family History Family History: Family History (Last Reviewed 01/01/19 @ 13:33 by Elma Russo APRN) Other Diabetes mellitus Medications and Allergies Active Medications: Active Medications Hydrocodone Bitart/Acetaminophen ([place] 10/325) 1 tab PO Q4H PRN PRN Reason: pain 7-10 Last Admin: 01/01/19 20:53 Dose: 1 tab Hydrocodone Bitart/Acetaminophen ([place] 5/325) 1 tab PO Q4H PRN PRN Reason: pain 3-6 Last Admin: 01/01/19 10:05 Dose: 1 tab Albuterol (Duoneb Neb (Prn)) 1 ampul NEB Q4HR NEB PRN PRN Reason: SOB/Wheezing Albuterol (Duoneb Neb (Klaus)) 1 ampul NEB Q6HR NEB [facility] Last Admin: 01/01/19 21:09 Dose: 1 ampul Aspirin (Aspirin Chew) 81 mg PO DAILY [facility] Last Admin: 01/01/19 08:55 Dose: 81 mg Benzonatate (Tessalon Perles) 100 mg PO TID PRN PRN Reason: cough Furosemide (Lasix Inj) 40 mg IV.PUSH BID@0900,1800 [facility] Last Admin: 01/01/19 18:02 Dose: 40 mg Heparin Sodium (Porcine) (Heparin Inj) 2,500 units IV.PUSH UNSCH PRN PRN Reason: aPTT 25-39 Levothyroxine Sodium (Synthroid) 100 mcg PO DAILY@0600 [facility] Last Admin: 01/01/19 06:40 Dose: 100 mcg Minoxidil (Loniten) 2.5 mg PO DAILY [facility] Last Admin: 01/01/19 08:58 Dose: 2.5 mg Nifedipine (Procardia Xl) 90 mg PO HS [facility] Last Admin: 01/01/19 20:53 Dose: 90 mg Patient Own Medication(( Glycopyrrolate- Formoterol [Bevespi Aerosphere] 2 Puff 0 each INH BID [facility] Last Admin: 01/01/19 20:53 Dose: Not Given Potassium Chloride (Kcl) 10 meq PO BID [facility] Last Admin: 01/01/19 20:53 Dose: 10 meq Sodium Chloride (Ns Flush) 2 ml IV.FLUSH BID [facility] Last Admin: 01/01/19 20:53 Dose: 2 ml Sodium Chloride (Ns Flush) 2 ml IV.FLUSH UNSCH PRN PRN Reason: FLUSH AFTER USING IV ACCESS Last Admin: 01/01/19 17:21 Dose: 2 ml Zolpidem Tartrate (Ambien) 5 mg PO HS PRN PRN Reason: INSOMNIA Last Admin: 01/01/19 20:53 Dose: 5 mg Exam Vital signs: Vital Signs 12/31/18 23:53 01/01/19 00:27 01/01/19 01:43 Temperature Pulse Rate 81 68 76 Respiratory Rate 18 18 18 Blood Pressure 160/75 H 135/70 136/68 Pulse Oximetry 95 95 97 01/01/19 02:28 01/01/19 04:00 01/01/19 07:00 Temperature 98.0 F 97.5 F L Pulse Rate 84 74 76 Respiratory Rate 18 Blood Pressure 139/74 137/78 Pulse Oximetry 96 96 01/01/19 08:41 01/01/19 08:56 01/01/19 11:00 Temperature 97.8 F Pulse Rate 76 83 Respiratory Rate 16 Blood Pressure 142/76 H Pulse Oximetry 94 L 98 01/01/19 12:00 01/01/19 15:00 01/01/19 15:06 Temperature 97.8 F Pulse Rate 78 78 89 Respiratory Rate 14 15 Blood Pressure 146/77 H Pulse Oximetry 99 01/01/19 16:00 01/01/19 19:00 01/01/19 20:00 Temperature 98.2 F 98 F Pulse Rate 74 82 81 Respiratory Rate 16 18 Blood Pressure 144/70 H 158/92 H Pulse Oximetry 97 96 01/01/19 20:53 01/01/19 21:09 01/01/19 23:00 Temperature Pulse Rate 74 79 Respiratory Rate 18 18 Blood Pressure Pulse Oximetry 93 L Intake & Output 01/01/19 01/01/19 01/02/19 06:59 18:59 06:59 Intake Total 0 / 0 1196 / 1196 Output Total 400 / 400 1000 / 1000 Balance -400 / -400 196 / 196 Weight 58.8 kg Intake: IV 50 / 50 Heparin/D5W 25,000 U/250 mL 25, 50 / 50 000 unit In 250 ml @ Per Protocol IV.CONT TITRATE PRN Rx #:[id number] Oral 0 / 0 1146 / 1146 Output: Urine 400 / 400 1000 / 1000 Other: Date of Last Bowel Movement 01/01/19 Weight On Admission 58.8 kg Results - Lab Results 01/01/19 04:54 01/01/19 04:54 Most recent lab results Calcium 8.5 mg/dL (8.5-10.1) 01/01/19 04:54 Assessment and Plan - Assessment (1) Chronic kidney failure Code(s): N18.9 - Chronic kidney disease, unspecified Status: Chronic (2) Hypertension Code(s): I10 - Essential (primary) hypertension Status: Chronic (3) Hepatitis C Code(s): B19.20 - Unspecified viral hepatitis C without hepatic coma Status: Acute (4) COPD (chronic obstructive pulmonary disease) Code(s): J44.9 - Chronic obstructive pulmonary disease, unspecified Status: Acute - Attending Attestation Have seen and examined the patient and discussed care with patient and BRIAN Wills , he has progressive kidney failure and now in stage V with volume overload, congestive heart failure, uncontrolled hypertension, discussed with the patient she would likely need hemodialysis, AV fistula appears mature, vascular surgery saw her earlier and cleared to cannulate and use the fistula and do dialysis in the morning, patient agreed with the plan Hepatitis C will be treated as outpatient she had appointment with she may need to reschedule. Meanwhile continue to diurese. I agree with above assessment and plan. <[place] jordan - Last Filed: 01/01/19 13:16> (1) Chronic kidney failure Qualifiers: Chronic kidney disease stage: stage 5 Qualified Code(s): N18.5 - Chronic kidney disease, stage 5 (3) Hepatitis C Qualifiers: Viral hepatitis chronicity: unspecified <Dena Fung - Last Filed: 01/01/19 23:51> (1) Chronic kidney failure Qualifiers: Chronic kidney disease stage: stage 5 Qualified Code(s): N18.5 - Chronic kidney disease, stage 5 (3) Hepatitis C Qualifiers: Viral hepatitis chronicity: unspecified
--- NOTE | 2019-01-01 11:04 | P.PNIM ---
The patient was resting comfortably in bed. She stated that she has a fistula in place. She says she also has a donor kidney transplant. She requested nebulizer treatments. She said she was breathing better. She was seen by cardiology who signed off. She was also evaluated by nephrology. She will continue IV diuresis. The heparin drip was discontinued. Her primary care physician was contacted and updated.
--- NOTE | 2019-01-01 12:57 | ECHRPT ---
Indication: HEART FAILURE CONCLUSIONS The left ventricular systolic function is moderately reduced with an estimated ejection fraction in the range of 40-45%. Mildly dilated left ventricle. The mid to distal anteroseptal wall is akinetic with thinning, consistent with prior infarction. [id number] mitral valve regurgitation. There is mild tricuspid valve regurgitation. There is estimated moderate pulmonary hypertension present (range 50-60 mmHg). There is a moderate sized pericardial effusion. No hemodynamically significant echocardiographic features were observed (no pre-tamponade physiology). Bilateral pleural effusions BP: / HR: Rhythm: Sinus MEASUREMENTS (Male / Female) Normal Values Technical Quality:Fair 2D ECHO LV Diastolic Diameter PLAX 5.9 cm 4.2 - 5.9 / 3.9 - 5.3 cm LV Systolic Diameter PLAX 3.7 cm IVS Diastolic Thickness 1.1 cm 0.6 - 1.0 / 0.6 - 0.9 cm LVPW Diastolic Thickness 1.0 cm 0.6 - 1.0 / 0.6 - 0.9 cm LV Relative Wall Thickness 0.4 RV Internal Dim ED PLAX 2.5 cm LVOT Diameter 2.2 cm Aortic Root Diameter 3.2 cm LA Systolic Diameter LX 4.1 cm 3.0 - 4.0 / 2.7 - 3.8 cm M-MODE AV Cusp Separation MM 2.2 cm DOPPLER AV Peak Velocity 172.0 cm/s AV Peak Gradient 11.8 mmHg AV Mean Gradient 6.0 mmHg AV Velocity Time Integral 29.3 cm LVOT Peak Velocity 98.5 cm/s LVOT Peak Gradient 3.9 mmHg LVOT Velocity Time Integral 22.8 cm AV Area Cont Eq vti 3.0 cm AV Area Cont Eq pk 2.2 cm Mitral E Point Velocity 107.0 cm/s Mitral A Point Velocity 102.0 cm/s Mitral E to A Ratio 1.0 LV E' Lateral Velocity 13.8 cm/s Mitral E to LV E' Lateral Ratio 7.8 LV E' Septal Velocity 7.9 cm/s Mitral E to LV E' Septal Ratio 13.5 TR Peak Velocity 336.0 cm/s TR Peak Gradient 45.2 mmHg Right Atrial Pressure 10.0 mmHg Pulmonary Artery Systolic Pressu 55.2 mmHg Right Ventricular Systolic Press 55.2 mmHg PV Peak Velocity 81.2 cm/s PV Peak Gradient 2.6 mmHg FINDINGS LEFT VENTRICLE Mildly dilated left ventricle. Wall thickness is measured at the upper limits of normal. The left ventricular systolic function is moderately reduced with an estimated ejection fraction in the range of 40-45%. The mid to distal anteroseptal wall is akinetic with thinning, consistent with prior infarction. RIGHT VENTRICLE Normal right ventricular size and systolic function. LEFT ATRIUM The left atrial size is mildly dilated. RIGHT ATRIUM The right atrial size is normal. ATRIAL SEPTUM No atrial level shunt is demonstrated by color flow Doppler interrogation. Normal atrial septal thickness. AORTA The aortic root and proximal ascending aorta are normal in size on limited imaging. MITRAL VALVE Structurally normal mitral valve. [id number] mitral valve regurgitation. No mitral valve stenosis. AORTIC VALVE Trileaflet aortic valve. No aortic valve stenosis or regurgitation. TRICUSPID VALVE Structurally normal tricuspid valve. There is mild tricuspid valve regurgitation. The estimated pulmonary arterial pressure is 55.2 mmHg. There is estimated moderate pulmonary hypertension present (range 50-60 mmHg). PULMONARY VALVE Trivial pulmonary valve regurgitation. VESSELS The inferior vena cava is normal in size. PERICARDIUM There is a moderate sized pericardial effusion. No hemodynamically significant echocardiographic features were observed (no pre-tamponade physiology). Bilateral pleural effusions Jorge A Diez DO (Electronically Signed) Final Date:01 January 2019 12:57
[2019-01-01 13:09] LABS: Troponin I 0.42 ng/mL (0.02-0.05)
--- NOTE | 2019-01-01 14:27 | P.CONVS ---
History of Present Illness Service: Vascular Surgery Consult date: 01/01/19 Reason for Consult: AVF Evaluation/Clearance Primary Care Provider: Merlin Vidales MD Chief Complaint: Shortness of breath History of Present Illness: Ms. Arzola is a 53/F w/ a PMH of COPD, Hypertension and Chronic Kidney Disease Pt underwent a 2 stage RIGHT Brachiobasilic arteriovenous fistula with the second stage being a transposition performed on 11/05/18 Pt was last seen in our out pt clinic on 12/09/18 and was cleared for access usage Pt denies hand pain Pt with palpable distal pulses + thrill near R UE AVF Review of Systems Constitutional: Denies chills, Denies fever(s) Cardiovascular: Reports shortness of breath (Reported improvement since admitted ), Denies chest pain PMFSH - History History Provided By: Patient, Medical Record - Medical History Medical History: Medical History (Last Reviewed 01/01/19 @ 14:18 by Patricia Morales) Arteriovenous fistula COPD (chronic obstructive pulmonary disease) Chronic pain ESRD (end stage renal disease) Fusion of lumbar spine Hepatitis C History of anesthesia reaction History of coma Hypertension Hypothyroidism Metal bone fixation hardware in place Neck pain Renal disease - Surgical History Surgical History: Surgical History (Last Reviewed 01/01/19 @ 14:18 by Patricia Morales) H/O abdominoplasty History of lumbar fusion - Family History Family History: Family History (Last Reviewed 01/01/19 @ 14:19 by Patricia Morales) Other Diabetes mellitus - Social History I have reviewed the patient's Social History: Yes - Tobacco History Second Hand Smoke Exposure: Yes Tobacco Use In Past 30 Days: No Smoking Status: Former smoker Tobacco Type: Cigarettes Packs Per Day: 1.5 - Alcohol History How Often Do You Have a Drink Containing Alcohol: Never - Substance Use History Substance History: No History of Abuse, Past History (States past history of IV drug use 35 years ago. Denies any current IV drug use) - Travel History Recent Travel in the [place] Within the Last 8 Weeks: No Recent Travel Out of the Country Within the Last 8 Weeks: No - Immunization History Tetanus Immunization: Unsure Medications and Allergies Allergies Allergy/AdvReac Type Severity Reaction Status Date / Time penicillin G Allergy Severe Hives Verified 12/31/18 20:01 Sulfa (Sulfonamide Allergy Severe Hives Verified 12/31/18 20:01 Antibiotics) Home Medications Medication Instructions Recorded Confirmed Type glycopyrrolate-formoterol [Bevespi 2 puff INHALATION QAM AND QPM 06/03/18 History Aerosphere] hydrocodone-acetaminophen [[place]] 2 tab PO Q6-8H PRN 06/03/18 12/31/18 History levothyroxine 100 mcg PO DAILY 06/03/18 12/31/18 History nifedipine 90 mg PO HS 06/03/18 12/31/18 History minoxidil 2.5 mg PO DAILY 09/20/18 12/31/18 History Active Medications: Active Medications Hydrocodone Bitart/Acetaminophen ([place] 10/325) 1 tab PO Q4H PRN PRN Reason: pain 7-10 Last Admin: 01/01/19 13:30 Dose: 1 tab Hydrocodone Bitart/Acetaminophen ([place] 5/325) 1 tab PO Q4H PRN PRN Reason: pain 3-6 Last Admin: 01/01/19 10:05 Dose: 1 tab Albuterol (Duoneb Neb (Prn)) 1 ampul NEB Q4HR NEB PRN PRN Reason: SOB/Wheezing Albuterol (Duoneb Neb (Kalus)) 1 ampul NEB Q6HR NEB KLAUS Aspirin (Aspirin Chew) 81 mg PO DAILY [facility] Last Admin: 01/01/19 08:55 Dose: 81 mg Benzonatate (Tessalon Perles) 100 mg PO TID PRN PRN Reason: cough Furosemide (Lasix Inj) 40 mg IV.PUSH BID@0900,1800 [facility] Last Admin: 01/01/19 08:56 Dose: 40 mg Heparin Sodium (Porcine) (Heparin Inj) 2,500 units IV.PUSH UNSCH PRN PRN Reason: aPTT 25-39 Levothyroxine Sodium (Synthroid) 100 mcg PO DAILY@0600 [facility] Last Admin: 01/01/19 06:40 Dose: 100 mcg Minoxidil (Loniten) 2.5 mg PO DAILY [facility] Last Admin: 01/01/19 08:58 Dose: 2.5 mg Nifedipine (Procardia Xl) 90 mg PO HS [facility] Patient Own Medication(( Glycopyrrolate- Formoterol [Bevespi Aerosphere] 2 Puff 0 each INH BID [facility] Potassium Chloride (Kcl) 10 meq PO BID [facility] Last Admin: 01/01/19 08:56 Dose: 10 meq Sodium Chloride (Ns Flush) 2 ml IV.FLUSH BID KLAUS Last Admin: 01/01/19 08:57 Dose: 2 ml Sodium Chloride (Ns Flush) 2 ml IV.FLUSH UNSCH PRN PRN Reason: FLUSH AFTER USING IV ACCESS Physical Exam Vital Signs / I&O: Vital Signs 12/31/18 20:04 12/31/18 22:02 12/31/18 22:04 Temperature 98 F Pulse Rate 50 L 74 Respiratory Rate 20 18 Blood Pressure 176/92 H 141/72 H Pulse Oximetry 94 L 90 L 90 L 12/31/18 22:10 12/31/18 22:51 12/31/18 23:53 Temperature Pulse Rate 66 81 Respiratory Rate 18 18 18 Blood Pressure 136/72 160/75 H Pulse Oximetry 93 L 95 01/01/19 00:27 01/01/19 01:43 01/01/19 02:28 Temperature 98.0 F Pulse Rate 68 76 84 Respiratory Rate 18 18 18 Blood Pressure 135/70 136/68 139/74 Pulse Oximetry 95 97 96 01/01/19 04:00 01/01/19 07:00 01/01/19 08:41 Temperature 97.5 F L 97.8 F Pulse Rate 74 76 76 Respiratory Rate 16 Blood Pressure 137/78 142/76 H Pulse Oximetry 96 94 L 01/01/19 08:56 01/01/19 11:00 01/01/19 12:00 Temperature 97.8 F Pulse Rate 83 78 Respiratory Rate 14 Blood Pressure 146/77 H Pulse Oximetry 98 99 Intake & Output 12/31/18 01/01/19 01/01/19 18:59 06:59 18:59 Intake Total 0 / 0 50 / 50 Output Total 400 / 400 Balance -400 / -400 50 / 50 Weight 58.8 kg Intake: IV 50 / 50 Heparin/D5W 25,000 U/250 mL 25, 50 / 50 000 unit In 250 ml @ Per Protocol IV.CONT TITRATE PRN Rx #:[id number] Oral 0 / 0 Output: Urine 400 / 400 Other: Weight On Admission 58.8 kg Neuro: Speech clear GCS 15 A&OX3 Neck: No JVD distention Heart: RRR Lungs: Resp even and CTA Vascular: + thrill palpable near AVF RIGHT 2+ radial pulse LEFT 2+ radial pulse Extremities: UE 5/5 LE 5 Laboratory Results - last 24 hr 12/31/18 12/31/18 12/31/18 21:52 21:52 21:52 WBC 8.2 RBC 3.65 L Hgb 11.9 Hct 34.8 L MCV 95.3 MCH 32.5 MCHC 34.1 RDW 14.1 Plt Count 240 MPV 7.3 Neut % (Auto) 91.0 H Lymph % (Auto) 6.8 L [place] % (Auto) 1.3 Eos % (Auto) 0.5 Baso % (Auto) 0.4 Neut # (Auto) 7.4 Lymph # (Auto) 0.6 L [place] # (Auto) 0.1 Eos # (Auto) 0.0 Baso # (Auto) 0.0 WBC Differential . Differential Comment Auto diff final PT INR APTT Sodium 138 Potassium 3.7 Chloride 106 Carbon Dioxide 22.6 Anion Gap 9 BUN 42 H Creatinine 3.89 H Estimated GFR 12 L Random Glucose 130 H Calcium 8.7 Total Bilirubin 0.5 AST 23 ALT 15 Alkaline Phosphatase 83 Total Creatine Kinase Troponin I 0.51 H B-Natriuretic Peptide 935 H Total Protein 7.0 Albumin 2.9 L 12/31/18 01/01/19 01/01/19 22:45 04:54 04:54 WBC 3.1 L D RBC 3.46 L Hgb 11.0 L Hct 32.5 L MCV 93.8 MCH 31.9 MCHC 34.0 RDW 13.9 Plt Count 229 MPV 7.4 Neut % (Auto) Lymph % (Auto) [place] % (Auto) Eos % (Auto) Baso % (Auto) Neut # (Auto) Lymph # (Auto) [place] # (Auto) Eos # (Auto) Baso # (Auto) WBC Differential Differential Comment PT 10.5 INR 1.0 APTT 27.8 35.6 H D Sodium Potassium Chloride Carbon Dioxide Anion Gap BUN Creatinine Estimated GFR Random Glucose Calcium Total Bilirubin AST ALT Alkaline Phosphatase Total Creatine Kinase Troponin I B-Natriuretic Peptide Total Protein Albumin 01/01/19 01/01/19 04:54 10:59 WBC RBC Hgb Hct MCV MCH MCHC RDW Plt Count MPV Neut % (Auto) Lymph % (Auto) [place] % (Auto) Eos % (Auto) Baso % (Auto) Neut # (Auto) Lymph # (Auto) [place] # (Auto) Eos # (Auto) Baso # (Auto) WBC Differential Differential Comment PT INR APTT Sodium 140 Potassium 4.0 Chloride 107 Carbon Dioxide 22.8 Anion Gap 10 BUN 45 H Creatinine 4.01 H Estimated GFR 12 L Random Glucose 145 H Calcium 8.5 Total Bilirubin AST ALT Alkaline Phosphatase Total Creatine Kinase 71 72 Troponin I 0.46 H 0.42 H B-Natriuretic Peptide Total Protein Albumin Impressions Chest X-Ray 12/31/18 20:17 CONCLUSION: Minimal parenchymal changes left base with small left pleural effusion. Mild interstitial edema Assessment and Plan - Plan 53/F nearing end stage kidney disease which may require hemodialysis Pt underwent a 2 stage RIGHT Brachiobasilic arteriovenous fistula with the second stage being a transposition performed on 11/05/18 Pt was last seen in our out pt clinic on 12/09/18 and was cleared for access usage Pt continues to have a + thrill near R UE AVF No hand pain Palpable distal pulses RIGHT Brachiobasilic AVF evaluated and cleared for cannulation use Patricia Morales NP [facility] [phone] - Attending Attestation Agree with above. Seen and examined and guerrero portions of H&P repeated. Access cleared for use. Discussed with patient. Can f/u in my clinic prn. Andrews Hatfield MD FACS FSVS RPVI [phone]
[2019-01-01] MEDS: GLYCOPYRROLATE FORMOTEROL INH SCH ×2 (14:43→20:53)
--- NOTE | 2019-01-01 20:40 | ECG ---
Date Performed: 01/01/2019 Time Performed: 07:25:44 PTAGE: 53 years EKG: Sinus rhythm Indeterminate axis Possible inferior infarct - age undetermined Possible anterior infarct - age unde termined Abnormal ECG PREVIOUS TRACING : 01/01/2019 00.55 Since the previous tracing, no significant change noted DOCTOR: Frank Blair Interpretating Date/Time 01/01/2019 20:38:49
--- NOTE | 2019-01-01 20:52 | ECG ---
Date Performed: 01/01/2019 Time Performed: 00:55:28 PTAGE: 53 years EKG: Sinus rhythm POSSIBLE LEFT ATRIAL ENLARGEMENT INDETERMINATE AXIS RIGHT VENTRICULAR CONDUCTION DELAY POSSIBLE ANTE RIOR MYOCARDIAL INFARCTION INFERIOR MYOCARDIAL INFARCTION ABNORMAL ECG PREVIOUS TRACING 09/23/2018, 12.17: Since the previous tracing, no significant change no zak DOCTOR: Frank Blair Interpretating Date/Time 01/01/2019 20:51:39
[2019-01-01] MEDS: Zolpidem Tartrate 5 MG Tablet PO PRN (20:53)
[2019-01-01] MEDS ORDERED: Sod Chloride 0.9% Inj 1,000 ML IV.CONT PRN (23:47)
[2019-01-01] MEDS ORDERED: Albumin Human 25% Inj 100 ML IV.SIG PRN (23:47)
[2019-01-01] MEDS ORDERED: Sod Chloride 0.9% Inj 1,000 ML OTHER PRN ×2 (23:47)
[2019-01-01] MEDS ORDERED: Acetaminophen 325 MG Tablet PO PRN (23:47)
[2019-01-01] MEDS ORDERED: Heparin 10,000 UNITS/10 ML Vial (for IV use) OTHER PRN ×2 (23:47)
[2019-01-02 05:11] LABS: Hematocrit 30.2 % (35.0-46.0); Hemoglobin 10.3 gm/dL (11.6-15.3); Mean Corpuscular Hemoglobin 32.2 pg (27.0-34.0); Mean Corpuscular Volume 94.7 fL (80.0-100.0); Mean Platelet Volume 7.2 fL (7.0-11.0); Platelet Count 226 th/mm3 (150-450); Red Blood Count 3.18 mil/mm3 (4.00-5.30); White Blood Count 7.8 th/mm3 (4.0-11.0)
[2019-01-02] MEDS: Levothyroxine 100 MCG Tablet PO SCH (05:16)
[2019-01-02 05:35] LABS: Calcium 7.5 mg/dL (8.5-10.1); Carbon Dioxide 25.7 meq/L (21.0-32.0); Magnesium 2.2 mg/dL (1.5-2.5); Phosphorus 5.9 mg/dL (2.5-4.9); Potassium 3.8 meq/L (3.5-5.1)
[2019-01-02 06:24] LABS: Hepatitis A IgM Antibody Nonreactive (Nonreactive); Hepatitits B Surface Antigen Nonreactive (Nonreactive)
[2019-01-02] MEDS: Minoxidil 2.5 MG Tablet PO SCH (08:25)
[2019-01-02] MEDS: Potassium Chloride 10 MEQ ER Capsule PO SCH ×2 (08:25→20:48)
[2019-01-02] MEDS: GLYCOPYRROLATE FORMOTEROL INH SCH ×2 (10:45→20:36)
[2019-01-02] MEDS: Calcium Acetate 667 MG Capsule PO SCH ×3 (11:21→17:33)
[2019-01-02] MEDS: ALPRAZolam 0.5 MG Tablet PO PRN ×2 (11:21→14:35)
--- NOTE | 2019-01-02 13:37 | P.PNNP ---
Subjective Interval history: Patient is very anxious about dialysis today. Physical Exam Vital signs: Vital Signs 01/01/19 15:00 01/01/19 15:06 01/01/19 16:00 Temperature 98.2 F Pulse Rate 78 89 74 Respiratory Rate 15 16 Blood Pressure 144/70 H Pulse Oximetry 97 01/01/19 19:00 01/01/19 20:00 01/01/19 20:53 Temperature 98 F Pulse Rate 82 81 Respiratory Rate 20 18 Blood Pressure 158/92 H Pulse Oximetry 96 01/01/19 21:09 01/01/19 23:00 01/02/19 00:00 Temperature 97.8 F Pulse Rate 74 79 81 Respiratory Rate 18 22 Blood Pressure 162/90 H Pulse Oximetry 93 L 95 01/02/19 00:23 01/02/19 03:00 01/02/19 04:00 Temperature 97.9 F Pulse Rate 78 84 Respiratory Rate 18 21 Blood Pressure 153/80 H Pulse Oximetry 92 L 01/02/19 04:09 01/02/19 07:00 01/02/19 08:00 Temperature 97.7 F Pulse Rate 80 69 90 Respiratory Rate 30 H 20 Blood Pressure 128/71 Pulse Oximetry 97 91 L 01/02/19 09:00 01/02/19 09:38 01/02/19 10:00 Temperature Pulse Rate 74 72 72 Respiratory Rate 22 Blood Pressure Pulse Oximetry 94 L 01/02/19 11:00 01/02/19 12:00 01/02/19 13:00 Temperature 97.6 F Pulse Rate 72 74 72 Respiratory Rate 20 Blood Pressure 137/72 Pulse Oximetry 93 L Intake & Output 01/01/19 01/02/19 01/02/19 18:59 06:59 18:59 Intake Total 1196 / 1196 240 / 240 Output Total 1000 / 1000 1100 / 1100 Balance 196 / 196 -860 / -860 Weight 59 kg Intake: IV 50 / 50 Heparin/D5W 25,000 U/250 mL 25, 50 / 50 000 unit In 250 ml @ Per Protocol IV.CONT TITRATE PRN Rx #:[id number] Oral 1146 / 1146 240 / 240 Output: Urine 1000 / 1000 1100 / 1100 Other: Date of Last Bowel Movement 01/01/19 01/01/19 Narrative: GENERAL: Appears anxious SKIN: Warm and dry, intact, No lesions seen. HEAD: Normocephalic. EYES: No scleral icterus. No injection or drainage. Pupils are equal and reactive to light. NECK: Supple, trachea midline. No JVD or lymphadenopathy. CARDIOVASCULAR: Regular rate and rhythm without murmurs, gallops, or rubs, no edema present. Right upper fistula noted positive bruit and thrill. RESPIRATORY: Breath sounds very diminished throughout. No accessory muscle use. GASTROINTESTINAL: Abdomen soft, non-tender, nondistended. Postive BS in all 4 quadrants. BACK: Nontender without obvious deformity. No CVA tenderness. Assessment and Plan - Assessment (1) Chronic kidney failure Code(s): N18.9 - Chronic kidney disease, unspecified Status: Chronic Qualifiers: Chronic kidney disease stage: stage 5 Qualified Code(s): N18.5 - Chronic kidney disease, stage 5 Plan: Creatinine increasing. 4.3 today. 1400 total of urine output yesterday. Now stage V chronic kidney disease. 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 for anxiety -Plan for dialysis today (2) Hypertension Code(s): I10 - Essential (primary) hypertension Status: Chronic Plan: Presented with hypertensive emergency Blood pressure much improved Likely related to volume overload in the setting of worsening chronic renal disease -She takes Procardia 90 mg at at bedtime, continue -Continue to monitor (3) Hepatitis C Code(s): B19.20 - Unspecified viral hepatitis C without hepatic coma Status: Acute Qualifiers: Viral hepatitis chronicity: unspecified Plan: New diagnosis of hep C -This can be worked up as an outpatient, will reschedule appointment with Dr. Miguel as an outpatient (4) COPD (chronic obstructive pulmonary disease) Code(s): J44.9 - Chronic obstructive pulmonary disease, unspecified Status: Acute Plan: Currently on nasal cannula. -Management per pulmonary
--- NOTE | 2019-01-02 15:52 | P.PN ---
Subjective Interval history: Patient chest pain much better c/o Anxiety wants Xanax. D/W RN at bed side. Physical Exam Vital signs: Vital Signs 01/01/19 16:00 01/01/19 19:00 01/01/19 20:00 Temperature 98.2 F 98 F Pulse Rate 74 82 81 Respiratory Rate 16 20 Blood Pressure 144/70 H 158/92 H Pulse Oximetry 97 96 01/01/19 20:53 01/01/19 21:09 01/01/19 23:00 Temperature Pulse Rate 74 79 Respiratory Rate 18 18 Blood Pressure Pulse Oximetry 93 L 01/02/19 00:00 01/02/19 00:23 01/02/19 03:00 Temperature 97.8 F Pulse Rate 81 78 Respiratory Rate 22 18 Blood Pressure 162/90 H Pulse Oximetry 95 01/02/19 04:00 01/02/19 04:09 01/02/19 07:00 Temperature 97.9 F Pulse Rate 84 80 69 Respiratory Rate 21 30 H Blood Pressure 153/80 H Pulse Oximetry 92 L 97 01/02/19 08:00 01/02/19 09:00 01/02/19 09:38 Temperature 97.7 F Pulse Rate 90 74 72 Respiratory Rate 20 22 Blood Pressure 128/71 Pulse Oximetry 91 L 94 L 01/02/19 10:00 01/02/19 11:00 01/02/19 12:00 Temperature 97.6 F Pulse Rate 72 72 74 Respiratory Rate 20 Blood Pressure 137/72 Pulse Oximetry 93 L 01/02/19 13:00 01/02/19 14:00 Temperature Pulse Rate 72 72 Respiratory Rate Blood Pressure Pulse Oximetry Intake & Output 01/01/19 01/02/19 01/02/19 18:59 06:59 18:59 Intake Total 1196 / 1196 240 / 240 Output Total 1000 / 1000 1100 / 1100 Balance 196 / 196 -860 / -860 Weight 59 kg Intake: IV 50 / 50 Heparin/D5W 25,000 U/250 mL 25, 50 / 50 000 unit In 250 ml @ Per Protocol IV.CONT TITRATE PRN Rx #:[id number] Oral 1146 / 1146 240 / 240 Output: Urine 1000 / 1000 1100 / 1100 Other: Date of Last Bowel Movement 01/01/19 01/01/19 - Constitutional no acute distress - Routine HEENT Exam Head: Present: normocephalic, atraumatic ENT: Present: mucous membranes moist - Routine Neck Exam Present: supple, full ROM - Routine Respiratory Exam Present: CTA bilaterally - Routine Cardiovascular Exam Present: RRR, S1, S2 - Routine Abdominal Exam Present: soft, normoactive bowel sounds - Routine Skin Exam Present: intact, dry, warm - Routine Neurological Exam Present: alert, oriented X3, CN II-XII intact, moving all extremities, vision grossly intact, hearing grossly intact, normal speech - Detailed Neurological Exam: Coma Scale Eye Opening: Spontaneous Verbal Response: Oriented Motor Response: Obey commands [place] Coma Scale Total: 15 - Routine Psychiatric Exam Present: normal affect, normal thought process, good judgment Results - Labs CBC & Chem 7: 01/03/19 16:52 01/04/19 08:24 Laboratory Results - last 24 hr 01/02/19 01/02/19 01/02/19 04:31 04:31 04:31 WBC 7.8 D RBC 3.18 L Hgb 10.3 L Hct 30.2 L MCV 94.7 MCH 32.2 MCHC 34.0 RDW 14.0 Plt Count 226 MPV 7.2 Sodium 140 Potassium 3.8 Chloride 105 Carbon Dioxide 25.7 Anion Gap 9 BUN 57 H Creatinine 4.32 H Estimated GFR 11 L Random Glucose 110 H Calcium 7.5 L D Phosphorus 5.9 H Magnesium 2.2 Hepatitis A IgM Ab Nonreactive Hep Bs Antigen Nonreactive Hep B Core IgM Ab Nonreactive Hep C IgG Ab Reactive H Assessment and Plan - Plan Assessment/plan: 1. Shortness of breath/? New onset congestive heart failure BNP 935 Chest x-ray significant for mild interstitial pulmonary edema, personally reviewed Echo done in 2017 showed an EF of 55-60% New onset bilateral lower extremity pitting edema Echo pending IV Lasix Nephrology input noted to assist with diuresis in the setting of chronic kidney disease 2. Elevated troponin Patient's troponin 0.51 Likely secondary to renal failure EKG without ST segment elevation or depression, personally reviewed Patient denies chest pain on heparin drip by ED Cardiology input noted, appreciate assistance Serial troponins/EKGs 3. Chronic kidney disease Threatening 3.89, baseline Patient with fistula but has not yet started dialysis Patient's building specialist, Dr. Fung consulted, appreciate assistance 4. Hepatitis C Continue outpatient follow-up 5. COPD Duo nebs Supplemental oxygen as needed 6. Hypertension/hypothyroidism Continue home medications FEN Cardic and renal diet. Electrolytes: Monitor and replete as needed Heparin Check CBC with diff CMP in AM.
[2019-01-02 19:50] LABS: Baso % (Auto) 0.7 % (0.0-2.0); Eos # (Auto) 0.2 th/mm3 (0.0-0.4); Eos % (Auto) 2.7 % (0.0-4.0); Hematocrit 32.8 % (35.0-46.0); Hemoglobin 11.1 gm/dL (11.6-15.3); Lymph # (Auto) 2.1 th/mm3 (1.0-4.8); Lymph % (Auto) 29.4 % (9.0-44.0); Mean Corpuscular HGB Conc 33.9 % (32.0-36.0); Mean Corpuscular Hemoglobin 32.1 pg (27.0-34.0); Mean Corpuscular Volume 94.6 fL (80.0-100.0); Mean Platelet Volume 7.3 fL (7.0-11.0); Mono # (Auto) 0.5 th/mm3 (0.0-0.9); Mono % (Auto) 6.6 % (0.0-8.0); Neut # (Auto) 4.2 th/mm3 (1.8-7.7); Neut % (Auto) 60.6 % (16.0-70.0); Platelet Count 234 th/mm3 (150-450); Red Blood Count 3.47 mil/mm3 (4.00-5.30); Red Cell Distribution Width 13.9 % (11.6-17.2)
[2019-01-02 20:13] LABS: Alanine Aminotransferase 15 U/L (10-53); Albumin 3.1 g/dL (3.4-5.0); Alkaline Phosphatase 70 U/L (45-117); Anion Gap 6 meq/L (5-15); Aspartate Aminotransferase 17 U/L (15-37); Blood Urea Nitrogen 35 mg/dL (7-18); Calcium 8.2 mg/dL (8.5-10.1); Carbon Dioxide 29.6 meq/L (21.0-32.0); Chloride 103 meq/L (98-107); Glomerular Filtration Rate 17 mL/min (>89); Glucose,Random 79 mg/dL (74-106); Potassium 3.6 meq/L (3.5-5.1); Sodium 139 meq/L (136-145); Total Protein 6.9 g/dL (6.4-8.2)
[2019-01-02] MEDS: Zolpidem Tartrate 5 MG Tablet PO PRN (20:30)
[2019-01-03] MEDS: ALPRAZolam 0.5 MG Tablet PO PRN ×4 (00:24→16:33)
--- NOTE | 2019-01-03 00:56 | ECG ---
Date Performed: 01/01/2019 Time Performed: 12:01:02 PTAGE: 53 years EKG: Sinus rhythm Indeterminate axis Possible inferior infarct - age undetermined Possible anterior infarct - age unde termined Abnormal ECG PREVIOUS TRACING : 01/01/2019 07.25 Since the previous tracing, no significant change noted DOCTOR: Jorge A Diez Interpretating Date/Time 01/03/2019 00:55:44
[2019-01-03] MEDS: Levothyroxine 100 MCG Tablet PO SCH (05:43)
[2019-01-03 07:57] LABS: Hematocrit 30.7 % (35.0-46.0); Hemoglobin 10.6 gm/dL (11.6-15.3); Mean Corpuscular HGB Conc 34.4 % (32.0-36.0); Mean Corpuscular Hemoglobin 32.9 pg (27.0-34.0); Mean Corpuscular Volume 95.6 fL (80.0-100.0); Mean Platelet Volume 7.1 fL (7.0-11.0); Platelet Count 207 th/mm3 (150-450); Red Blood Count 3.21 mil/mm3 (4.00-5.30); Red Cell Distribution Width 14.2 % (11.6-17.2); White Blood Count 7.3 th/mm3 (4.0-11.0)
[2019-01-03 08:23] LABS: Albumin 2.8 g/dL (3.4-5.0); Carbon Dioxide 30.5 meq/L (21.0-32.0); Potassium 3.6 meq/L (3.5-5.1)
[2019-01-03 08:28] LABS: Phosphorus 3.6 mg/dL (2.5-4.9)
[2019-01-03] MEDS: Potassium Chloride 10 MEQ ER Capsule PO SCH ×2 (12:26→20:49)
[2019-01-03] MEDS: Calcium Acetate 667 MG Capsule PO SCH ×3 (12:26→17:07)
[2019-01-03] MEDS: Minoxidil 2.5 MG Tablet PO SCH (12:26)
[2019-01-03] MEDS: GLYCOPYRROLATE FORMOTEROL INH SCH ×2 (12:27→20:49)
--- NOTE | 2019-01-03 16:15 | P.PN ---
Subjective Interval history: Patient feel better getting hemodialysis nephrology/ cardiology input noted. on Xanax for Anxiety. Physical Exam Vital signs: Vital Signs 01/02/19 18:01 01/02/19 20:00 01/02/19 20:28 Temperature 98.6 F Pulse Rate 75 77 Respiratory Rate 16 22 20 Blood Pressure 164/77 H Pulse Oximetry 95 01/02/19 21:05 01/03/19 00:00 01/03/19 00:30 Temperature 98.6 F Pulse Rate 70 74 Respiratory Rate 22 22 18 Blood Pressure 164/79 H Pulse Oximetry 93 L 96 01/03/19 03:36 01/03/19 04:17 01/03/19 04:19 Temperature Pulse Rate 73 75 Respiratory Rate 18 19 Blood Pressure Pulse Oximetry 01/03/19 05:42 01/03/19 05:57 01/03/19 08:11 Temperature 98.3 F 98.1 F Pulse Rate 77 73 Respiratory Rate 19 18 18 Blood Pressure 149/71 H 142/71 H Pulse Oximetry 95 92 L 01/03/19 09:00 01/03/19 12:00 01/03/19 12:07 Temperature 99.0 F Pulse Rate 70 78 Respiratory Rate 18 16 Blood Pressure 157/101 H Pulse Oximetry 91 L 01/03/19 12:48 01/03/19 14:05 Temperature Pulse Rate Respiratory Rate 16 16 Blood Pressure Pulse Oximetry Intake & Output 01/02/19 01/03/19 01/03/19 18:59 06:59 18:59 Intake Total 480 / 480 442 / 442 Output Total 2400 / 2400 950 / 950 1999 Balance -1920 / -1920 -508 / -508 -1999 Weight 56.245 kg 55.7 kg Intake: Oral 480 / 480 442 / 442 Output: Urine 400 / 400 950 / 950 Hemodialysis Amount 1999 Other: Date of Last Bowel Movement 01/01/19 01/01/19 - Constitutional no acute distress - Routine HEENT Exam Head: Present: normocephalic, atraumatic Eye: Present: EOMI, PERRL ENT: Present: mucous membranes moist - Routine Neck Exam Present: supple, full ROM - Routine Respiratory Exam Present: CTA bilaterally - Routine Cardiovascular Exam Present: RRR, S1, S2 - Routine Abdominal Exam Present: soft, normoactive bowel sounds - Routine Extremities Exam Present: edema, full ROM, pulses intact - Routine Skin Exam Present: intact, dry, warm - Routine Neurological Exam Present: alert, oriented X3, CN II-XII intact, moving all extremities, vision grossly intact, hearing grossly intact, normal speech - Detailed Neurological Exam: Coma Scale Eye Opening: Spontaneous Verbal Response: Oriented Motor Response: Obey commands [place] Coma Scale Total: 15 - Routine Psychiatric Exam Present: normal affect, normal thought process, good judgment Results - Labs CBC & Chem 7: 01/03/19 16:52 01/04/19 08:24 Laboratory Results - last 24 hr 01/02/19 01/02/19 01/03/19 18:55 18:55 07:29 WBC 7.0 RBC 3.47 L Hgb 11.1 L Hct 32.8 L MCV 94.6 MCH 32.1 MCHC 33.9 RDW 13.9 Plt Count 234 MPV 7.3 Neut % (Auto) 60.6 Lymph % (Auto) 29.4 [place] % (Auto) 6.6 Eos % (Auto) 2.7 Baso % (Auto) 0.7 Neut # (Auto) 4.2 Lymph # (Auto) 2.1 [place] # (Auto) 0.5 Eos # (Auto) 0.2 Baso # (Auto) 0.0 WBC Differential . Differential Comment Auto diff final Sodium 139 140 Potassium 3.6 3.6 Chloride 103 104 Carbon Dioxide 29.6 30.5 Anion Gap 6 6 BUN 35 H 40 H Creatinine 2.84 H 3.29 H Estimated GFR 17 L 15 L Random Glucose 79 89 Calcium 8.2 L 8.0 L Phosphorus 3.6 D Total Bilirubin 0.4 AST 17 ALT 15 Alkaline Phosphatase 70 Total Protein 6.9 Albumin 3.1 L 2.8 L 01/03/19 07:29 WBC 7.3 RBC 3.21 L Hgb 10.6 L Hct 30.7 L MCV 95.6 MCH 32.9 MCHC 34.4 RDW 14.2 Plt Count 207 MPV 7.1 Neut % (Auto) Lymph % (Auto) [place] % (Auto) Eos % (Auto) Baso % (Auto) Neut # (Auto) Lymph # (Auto) [place] # (Auto) Eos # (Auto) Baso # (Auto) WBC Differential Differential Comment Sodium Potassium Chloride Carbon Dioxide Anion Gap BUN Creatinine Estimated GFR Random Glucose Calcium Phosphorus Total Bilirubin AST ALT Alkaline Phosphatase Total Protein Albumin Assessment and Plan - Plan Assessment/plan: 1. Shortness of breath/? New onset congestive heart failure/COPD Exacerbation/ Volume overload. BNP 935 Chest x-ray significant for mild interstitial pulmonary edema, Echo done in 2017 showed an EF of 55-60% New onset bilateral lower extremity pitting edema Echo nted. IV Lasix Nephrology input noted to assist with diuresis in the setting of chronic kidney disease 2. Elevated troponin Patient's troponin 0.51 Likely secondary to renal failure EKG without ST segment elevation or depression, Patient denies chest pain Cardiology input noted, appreciate assistance..Patient has had an ischemic work up with normal nuclear stress test in past 3 months with her primary sleeve separator, Dr Amaral as an oupatient. No further evaluation required at this time. With no evidence of ACS, Serial troponins/EKGs 3. Chronic kidney disease Threatening 3.89, baseline Patient with fistula but has not yet started dialysis Patient's stone layer, Dr. Fung following input noted, appreciate assistance 4. Hepatitis C Continue outpatient follow-up 5. COPD Duo nebs Supplemental oxygen as needed 6. Hypertension/hypothyroidism Continue home medications 7. Anxiety ...on Xanax. FEN Cardic and renal diet. Electrolytes: Monitor and replete as needed Heparin Check CBC with diff CMP in AM.
--- NOTE | 2019-01-03 16:38 | P.PNNP ---
Subjective Interval history: Patient is feeling better post dialysis he has anxiety Physical Exam Vital signs: Vital Signs 01/02/19 18:01 01/02/19 20:00 01/02/19 20:28 Temperature 98.6 F Pulse Rate 75 77 Respiratory Rate 16 22 20 Blood Pressure 164/77 H Pulse Oximetry 95 01/02/19 21:05 01/03/19 00:00 01/03/19 00:30 Temperature 98.6 F Pulse Rate 70 74 Respiratory Rate 22 22 18 Blood Pressure 164/79 H Pulse Oximetry 93 L 96 01/03/19 03:36 01/03/19 04:17 01/03/19 04:19 Temperature Pulse Rate 73 75 Respiratory Rate 18 19 Blood Pressure Pulse Oximetry 01/03/19 05:42 01/03/19 05:57 01/03/19 08:11 Temperature 98.3 F 98.1 F Pulse Rate 77 73 Respiratory Rate 19 18 18 Blood Pressure 149/71 H 142/71 H Pulse Oximetry 95 92 L 01/03/19 09:00 01/03/19 12:00 01/03/19 12:07 Temperature 99.0 F Pulse Rate 70 78 Respiratory Rate 18 16 Blood Pressure 157/101 H Pulse Oximetry 91 L 01/03/19 12:48 01/03/19 14:05 Temperature Pulse Rate Respiratory Rate 16 16 Blood Pressure Pulse Oximetry Intake & Output 01/02/19 01/03/19 01/03/19 18:59 06:59 18:59 Intake Total 480 / 480 442 / 442 Output Total 2400 / 2400 950 / 950 1999 Balance -1920 / -1920 -508 / -508 -1999 Weight 56.245 kg 55.7 kg Intake: Oral 480 / 480 442 / 442 Output: Urine 400 / 400 950 / 950 Hemodialysis Amount 1999 Other: Date of Last Bowel Movement 01/01/19 01/01/19 Narrative: GENERAL: Appears anxious SKIN: Warm and dry, intact, No lesions seen. HEAD: Normocephalic. EYES: No scleral icterus. No injection or drainage. Pupils are equal and reactive to light. NECK: Supple, trachea midline. No JVD or lymphadenopathy. CARDIOVASCULAR: Regular rate and rhythm without murmurs, gallops, or rubs, no edema present. Right upper fistula noted positive bruit and thrill. RESPIRATORY: Breath sounds very diminished throughout. Bilateral rhonchi at bases no accessory muscle use. GASTROINTESTINAL: Abdomen soft, non-tender, nondistended. Positive BS in all 4 quadrants. BACK: Nontender without obvious deformity. No CVA tenderness. Assessment and Plan - Assessment (1) Chronic kidney failure Code(s): N18.9 - Chronic kidney disease, unspecified Status: Chronic Qualifiers: Chronic kidney disease stage: stage 5 Qualified Code(s): N18.5 - Chronic kidney disease, stage 5 Plan: End-stage renal disease on hemodialysis this was done today 2 L removed She tolerated well Pressure remains labile She is on Procardia, minoxidil Added clonidine 0.1 mg 3 times daily Consult materials planner/production planner to arrange hemodialysis as outpatient (2) Hypertension Code(s): I10 - Essential (primary) hypertension Status: Chronic Plan: Presented with hypertensive emergency Blood pressure much improved Likely related to volume overload in the setting of worsening chronic renal disease -She takes Procardia 90 mg at at bedtime, continu minoxidil and clonidine 0.1 mg 3 times daily added -Continue to monitor (3) Hepatitis C Code(s): B19.20 - Unspecified viral hepatitis C without hepatic coma Status: Acute Qualifiers: Viral hepatitis chronicity: unspecified Plan: New diagnosis of hep C -This can be worked up as an outpatient, will reschedule appointment with Dr. Miguel as an outpatient (4) COPD (chronic obstructive pulmonary disease) Code(s): J44.9 - Chronic obstructive pulmonary disease, unspecified Status: Acute Plan: Currently on nasal cannula. -Management per pulmonary
[2019-01-03 17:31] LABS: Baso % (Auto) 0.6 % (0.0-2.0); Eos # (Auto) 0.2 th/mm3 (0.0-0.4); Eos % (Auto) 2.8 % (0.0-4.0); Hematocrit 33.5 % (35.0-46.0); Hemoglobin 11.3 gm/dL (11.6-15.3); Lymph # (Auto) 1.2 th/mm3 (1.0-4.8); Lymph % (Auto) 16.5 % (9.0-44.0); Mean Corpuscular HGB Conc 33.8 % (32.0-36.0); Mean Corpuscular Hemoglobin 32.1 pg (27.0-34.0); Mean Platelet Volume 7.2 fL (7.0-11.0); Mono # (Auto) 0.6 th/mm3 (0.0-0.9); Mono % (Auto) 8.2 % (0.0-8.0); Neut # (Auto) 5.4 th/mm3 (1.8-7.7); Neut % (Auto) 71.9 % (16.0-70.0); Platelet Count 228 th/mm3 (150-450); Red Blood Count 3.53 mil/mm3 (4.00-5.30); Red Cell Distribution Width 13.8 % (11.6-17.2); White Blood Count 7.5 th/mm3 (4.0-11.0)
[2019-01-03 18:00] LABS: Alanine Aminotransferase 14 U/L (10-53); Albumin 2.8 g/dL (3.4-5.0); Alkaline Phosphatase 70 U/L (45-117); Anion Gap 8 meq/L (5-15); Aspartate Aminotransferase 18 U/L (15-37); Blood Urea Nitrogen 20 mg/dL (7-18); Calcium 7.9 mg/dL (8.5-10.1); Carbon Dioxide 31.4 meq/L (21.0-32.0); Chloride 99 meq/L (98-107); Glomerular Filtration Rate 21 mL/min (>89); Glucose,Random 99 mg/dL (74-106); Potassium 3.6 meq/L (3.5-5.1); Sodium 138 meq/L (136-145); Total Protein 6.6 g/dL (6.4-8.2)
[2019-01-03] MEDS: Zolpidem Tartrate 5 MG Tablet PO PRN (20:51)
[2019-01-04] MEDS: ALPRAZolam 0.5 MG Tablet PO PRN ×3 (01:34→16:35)
[2019-01-04] MEDS: Levothyroxine 100 MCG Tablet PO SCH (05:53)
[2019-01-04] MEDS: Calcium Acetate 667 MG Capsule PO SCH ×3 (08:55→17:59)
[2019-01-04] MEDS: GLYCOPYRROLATE FORMOTEROL INH SCH ×2 (08:55→21:17)
[2019-01-04] MEDS: Minoxidil 2.5 MG Tablet PO SCH (08:55)
[2019-01-04] MEDS: Potassium Chloride 10 MEQ ER Capsule PO SCH ×2 (08:55→21:17)
[2019-01-04 09:36] LABS: Albumin 2.5 g/dL (3.4-5.0); Calcium 8.3 mg/dL (8.5-10.1); Carbon Dioxide 31.9 meq/L (21.0-32.0); Potassium 3.7 meq/L (3.5-5.1)
[2019-01-04 09:37] LABS: Phosphorus 3.1 mg/dL (2.5-4.9)
--- NOTE | 2019-01-04 16:52 | P.PNNP ---
Subjective Interval history: Patient feels better she has cough and bringing up greenish sputum Physical Exam Vital signs: Vital Signs 01/03/19 17:08 01/03/19 20:00 01/03/19 21:15 Temperature 98.2 F Pulse Rate 73 86 Respiratory Rate 16 16 16 Blood Pressure 132/71 Pulse Oximetry 93 L 92 L 01/04/19 00:00 01/04/19 03:51 01/04/19 04:00 Temperature 98.2 F 97.8 F Pulse Rate 68 74 66 Respiratory Rate 18 16 17 Blood Pressure 126/67 122/67 Pulse Oximetry 96 95 01/04/19 07:24 01/04/19 08:00 01/04/19 08:38 Temperature 97.5 F L Pulse Rate 62 59 L Respiratory Rate 18 Blood Pressure 156/74 H Pulse Oximetry 98 91 L 01/04/19 12:00 01/04/19 12:13 Temperature 98.1 F Pulse Rate 64 70 Respiratory Rate 18 Blood Pressure 109/55 L Pulse Oximetry 94 L Intake & Output 01/03/19 01/04/19 01/04/19 18:59 06:59 18:59 Output Total 1999 400 / 400 Balance -1999 / -1999 -400 / -400 Weight 55.5 kg Output: Urine 400 / 400 Hemodialysis Amount 1999 Other: Date of Last Bowel Movement 01/02/19 01/02/19 Narrative: GENERAL: Appears anxious SKIN: Warm and dry, intact, No lesions seen. HEAD: Normocephalic. EYES: No scleral icterus. No injection or drainage. Pupils are equal and reactive to light. NECK: Supple, trachea midline. No JVD or lymphadenopathy. CARDIOVASCULAR: Regular rate and rhythm without murmurs, gallops, or rubs, no edema present. Right upper fistula noted positive bruit and thrill. RESPIRATORY: Breath sounds very diminished throughout. Bilateral rhonchi at bases no accessory muscle use. GASTROINTESTINAL: Abdomen soft, non-tender, nondistended. Positive BS in all 4 quadrants. BACK: Nontender without obvious deformity. No CVA tenderness. Assessment and Plan - Assessment (1) Chronic kidney failure Code(s): N18.9 - Chronic kidney disease, unspecified Status: Chronic Qualifiers: Chronic kidney disease stage: stage 5 Qualified Code(s): N18.5 - Chronic kidney disease, stage 5 Plan: End-stage renal disease on dialysis blood pressure improved creatinine is declining Need outpatient setting older adult social work specialist to help go for a kidney transplant evaluation as outpatient Hemodialysis to continue on Sunday, Sunday and Sunday (2) Hypertension Code(s): I10 - Essential (primary) hypertension Status: Chronic Plan: Patient blood pressure improved significantly after dialysis (3) Hepatitis C Code(s): B19.20 - Unspecified viral hepatitis C without hepatic coma Status: Acute Qualifiers: Viral hepatitis chronicity: unspecified Plan: New diagnosis of hep C -This can be worked up as an outpatient, will reschedule appointment with Dr. Miguel as an outpatient (4) COPD (chronic obstructive pulmonary disease) Code(s): J44.9 - Chronic obstructive pulmonary disease, unspecified Status: Acute Plan: Currently on nasal cannula. -Management per pulmonary
[2019-01-04] MEDS: Zolpidem Tartrate 5 MG Tablet PO PRN (21:17)
[2019-01-05] MEDS: ALPRAZolam 0.5 MG Tablet PO PRN ×3 (00:58→15:52)
[2019-01-05] MEDS: Levothyroxine 100 MCG Tablet PO SCH (06:21)
[2019-01-05] MEDS: Potassium Chloride 10 MEQ ER Capsule PO SCH ×2 (09:15→20:50)
[2019-01-05] MEDS: Calcium Acetate 667 MG Capsule PO SCH ×3 (09:15→17:32)
[2019-01-05] MEDS: Minoxidil 2.5 MG Tablet PO SCH (09:15)
[2019-01-05] MEDS: GLYCOPYRROLATE FORMOTEROL INH SCH ×2 (09:16→21:00)
--- NOTE | 2019-01-05 11:47 | P.PN ---
Subjective Interval history: Patient seen on 01/04/19. No acute issue. getting hemodialysis nephrology input noted. Physical Exam Vital signs: Vital Signs 01/04/19 12:00 01/04/19 12:13 01/04/19 15:59 Temperature 98.1 F 98.1 F Pulse Rate 64 70 64 Respiratory Rate 18 18 Blood Pressure 109/55 L 124/61 Pulse Oximetry 94 L 96 01/04/19 17:59 01/04/19 20:00 01/04/19 21:15 Temperature 97.7 F Pulse Rate 64 63 75 Respiratory Rate 20 20 Blood Pressure 132/63 Pulse Oximetry 92 L 01/04/19 21:44 01/05/19 00:00 01/05/19 03:05 Temperature 97.9 F Pulse Rate 78 67 76 Respiratory Rate 16 18 16 Blood Pressure 128/70 Pulse Oximetry 93 L 90 L 01/05/19 04:00 01/05/19 08:00 01/05/19 08:02 Temperature 98.7 F 97.9 F Pulse Rate 73 62 62 Respiratory Rate 18 16 Blood Pressure 103/62 116/63 Pulse Oximetry 99 97 Intake & Output 01/04/19 01/05/19 01/05/19 18:59 06:59 18:59 Intake Total 720 / 720 Output Total 600 / 600 Balance 120 / 120 Intake: Oral 720 / 720 Output: Urine 600 / 600 Other: Date of Last Bowel Movement 01/02/19 01/03/19 01/03/19 - Constitutional no acute distress - Routine HEENT Exam Head: Present: normocephalic, atraumatic ENT: Present: mucous membranes moist - Routine Neck Exam Present: supple, full ROM - Routine Respiratory Exam Present: CTA bilaterally - Routine Cardiovascular Exam Present: RRR, S1, S2 - Routine Abdominal Exam Present: soft, normoactive bowel sounds - Routine Extremities Exam Present: edema, full ROM, pulses intact - Routine Skin Exam Present: intact, dry, warm - Routine Neurological Exam Present: alert, oriented X3, CN II-XII intact, moving all extremities, vision grossly intact, hearing grossly intact, normal speech - Detailed Neurological Exam: Coma Scale Eye Opening: Spontaneous Verbal Response: Oriented Motor Response: Obey commands [place] Coma Scale Total: 15 - Routine Psychiatric Exam Present: normal affect, normal thought process, good judgment Results - Labs CBC & Chem 7: 01/03/19 16:52 01/04/19 08:24 Assessment and Plan - Plan Assessment/plan: 1. Shortness of breath/? New onset congestive heart failure/COPD Exacerbation/ Volume overload. BNP 935 Chest x-ray significant for mild interstitial pulmonary edema, Echo done in 2017 showed an EF of 55-60% New onset bilateral lower extremity pitting edema Echo noted. IV Lasix Nephrology input noted to assist with diuresis in the setting of chronic kidney disease 2. Elevated troponin Patient's troponin 0.51 Likely secondary to renal failure EKG without ST segment elevation or depression, Patient denies chest pain Cardiology input noted, appreciate assistance..Patient has had an ischemic work up with normal nuclear stress test in past 3 months with her primary police aide, Dr Amaral as an outpatient. No further evaluation required at this time. With no evidence of ACS, Serial troponins/EKGs..noted. 3. Chronic kidney disease Threatening 3.89, baseline Patient with fistula but has not yet started dialysis Patient's horizontal resaw operator, Dr. Fung following input noted, appreciate assistance 4. Hepatitis C Continue outpatient follow-up 5. COPD Duo nebs Supplemental oxygen as needed 6. Hypertension/hypothyroidism Continue home medications 7. Anxiety ...on Xanax. FEN Cardic and renal diet. Electrolytes: Monitor and replete as needed Heparin Check CBC with diff CMP in AM.
--- NOTE | 2019-01-05 11:47 | P.PN ---
Subjective Interval history: Patient same no acute issue getting hemodialysis. Physical Exam Vital signs: Vital Signs 01/04/19 12:00 01/04/19 12:13 01/04/19 15:59 Temperature 98.1 F 98.1 F Pulse Rate 64 70 64 Respiratory Rate 18 18 Blood Pressure 109/55 L 124/61 Pulse Oximetry 94 L 96 01/04/19 17:59 01/04/19 20:00 01/04/19 21:15 Temperature 97.7 F Pulse Rate 64 63 75 Respiratory Rate 20 20 Blood Pressure 132/63 Pulse Oximetry 92 L 01/04/19 21:44 01/05/19 00:00 01/05/19 03:05 Temperature 97.9 F Pulse Rate 78 67 76 Respiratory Rate 16 18 16 Blood Pressure 128/70 Pulse Oximetry 93 L 90 L 01/05/19 04:00 01/05/19 08:00 01/05/19 08:02 Temperature 98.7 F 97.9 F Pulse Rate 73 62 62 Respiratory Rate 18 16 Blood Pressure 103/62 116/63 Pulse Oximetry 99 97 Intake & Output 01/04/19 01/05/19 01/05/19 18:59 06:59 18:59 Intake Total 720 / 720 Output Total 600 / 600 Balance 120 / 120 Intake: Oral 720 / 720 Output: Urine 600 / 600 Other: Date of Last Bowel Movement 01/02/19 01/03/19 01/03/19 - Constitutional no acute distress - Routine HEENT Exam Head: Present: normocephalic, atraumatic ENT: Present: mucous membranes moist - Routine Neck Exam Present: supple, full ROM - Routine Respiratory Exam Present: CTA bilaterally - Routine Cardiovascular Exam Present: RRR, S1, S2 - Routine Abdominal Exam Present: soft, normoactive bowel sounds - Routine Extremities Exam Present: edema, full ROM, pulses intact - Routine Skin Exam Present: intact, dry, warm - Routine Neurological Exam Present: alert, oriented X3, CN II-XII intact, moving all extremities, vision grossly intact, hearing grossly intact, normal speech - Detailed Neurological Exam: Coma Scale Eye Opening: Spontaneous Verbal Response: Oriented Motor Response: Obey commands [place] Coma Scale Total: 15 - Routine Psychiatric Exam Present: normal affect, normal thought process, good judgment Results - Labs CBC & Chem 7: 01/03/19 16:52 01/04/19 08:24 Assessment and Plan - Plan Assessment/plan: 1. Shortness of breath/? New onset congestive heart failure/COPD Exacerbation/ Volume overload. BNP 935 Chest x-ray significant for mild interstitial pulmonary edema, Echo done in 2017 showed an EF of 55-60% New onset bilateral lower extremity pitting edema Echo noted. Nephrology input noted to assist with diuresis in the setting of chronic kidney disease 2. Elevated troponin Patient's troponin 0.51 Likely secondary to renal failure EKG without ST segment elevation or depression, Patient denies chest pain Cardiology input noted, appreciate assistance..Patient has had an ischemic work up with normal nuclear stress test in past 3 months with her primary director telecommunications, Dr Amaral as an oupatient. No further evaluation required at this time. With no evidence of ACS, Serial troponins/EKGs 3. Chronic kidney disease Threatening 3.89, baseline Patient with fistula but has not yet started dialysis Patient's securities sales associate, Dr. Fung following input noted, appreciate assistance 4. Hepatitis C Continue outpatient follow-up 5. COPD Duo nebs Supplemental oxygen as needed 6. Hypertension/hypothyroidism Continue home medications 7. Anxiety ...on Xanax. FEN Cardic and renal diet. Electrolytes: Monitor and replete as needed Heparin Check CBC with diff CMP in AM.
[2019-01-05 12:41] LABS: Baso % (Auto) 0.8 % (0.0-2.0); Eos # (Auto) 0.3 th/mm3 (0.0-0.4); Eos % (Auto) 4.9 % (0.0-4.0); Hematocrit 30.9 % (35.0-46.0); Hemoglobin 10.4 gm/dL (11.6-15.3); Lymph # (Auto) 1.8 th/mm3 (1.0-4.8); Lymph % (Auto) 33.2 % (9.0-44.0); Mean Corpuscular HGB Conc 33.8 % (32.0-36.0); Mean Corpuscular Hemoglobin 33.1 pg (27.0-34.0); Mean Corpuscular Volume 97.9 fL (80.0-100.0); Mean Platelet Volume 7.1 fL (7.0-11.0); Mono # (Auto) 0.5 th/mm3 (0.0-0.9); Mono % (Auto) 8.5 % (0.0-8.0); Neut # (Auto) 2.8 th/mm3 (1.8-7.7); Neut % (Auto) 52.6 % (16.0-70.0); Platelet Count 187 th/mm3 (150-450); Red Blood Count 3.15 mil/mm3 (4.00-5.30); Red Cell Distribution Width 14.2 % (11.6-17.2); White Blood Count 5.3 th/mm3 (4.0-11.0)
[2019-01-05 13:05] LABS: Alanine Aminotransferase 15 U/L (10-53); Albumin 2.7 g/dL (3.4-5.0); Alkaline Phosphatase 62 U/L (45-117); Anion Gap 7 meq/L (5-15); Aspartate Aminotransferase 18 U/L (15-37); Blood Urea Nitrogen 40 mg/dL (7-18); Calcium 8.5 mg/dL (8.5-10.1); Carbon Dioxide 29.1 meq/L (21.0-32.0); Chloride 102 meq/L (98-107); Glomerular Filtration Rate 13 mL/min (>89); Glucose,Random 91 mg/dL (74-106); Phosphorus 3.8 mg/dL (2.5-4.9); Sodium 138 meq/L (136-145); Total Protein 6.1 g/dL (6.4-8.2)
--- NOTE | 2019-01-05 15:59 | US ---
EXAM DATE: 01/05/2019 3:55 PM EST AGE/SEX: 53 years / Female INDICATIONS: Isolated swelling on right arm. CLINICAL DATA: This is the patient's initial encounter. Patient reports that signs and symptoms have been present for 1 day and indicates a pain score of 3/10. MEDICAL/SURGICAL HISTORY: Hepatitis C. Chronic obstructive pulmonary disease. Hypertension. Hypothyroidism. Renal disease. AV fistula. . Lumbar fusion. AV fistula. COMPARISON: No prior exams available for comparison. FINDINGS: Grayscale and color Doppler evaluation of the antecubital fossa on the right was performed. There is mild subcutaneous edema. No fluid collections or hematoma. No mass. CONCLUSION: 1. Mild subcutaneous edema. Electronically signed by: Florentino Mosqueda MD Board Certified Radiologist 01/05/2019 3:57 PM EST
--- NOTE | 2019-01-05 20:25 | P.PNNP ---
Subjective Interval history: Patient complains of arm swelling below the fistula on the right Physical Exam Vital signs: Vital Signs 01/04/19 21:15 01/04/19 21:44 01/05/19 00:00 Temperature 97.7 F 97.9 F Pulse Rate 75 78 67 Respiratory Rate 20 16 18 Blood Pressure 132/63 128/70 Pulse Oximetry 92 L 93 L 90 L 01/05/19 03:05 01/05/19 04:00 01/05/19 08:00 Temperature 98.7 F Pulse Rate 76 73 62 Respiratory Rate 16 18 Blood Pressure 103/62 Pulse Oximetry 99 01/05/19 08:02 01/05/19 12:00 01/05/19 12:05 Temperature 97.9 F 97.9 F Pulse Rate 62 64 62 Respiratory Rate 16 18 Blood Pressure 116/63 117/62 Pulse Oximetry 97 93 L 01/05/19 16:00 01/05/19 16:06 Temperature 98.1 F Pulse Rate 61 98 H Respiratory Rate 18 Blood Pressure 123/61 Pulse Oximetry 97 Intake & Output 01/05/19 01/05/19 01/06/19 06:59 18:59 06:59 Intake Total 720 / 720 Output Total 600 / 600 450 / 450 Balance 120 / 120 -450 / -450 Intake: Oral 720 / 720 Output: Urine 600 / 600 450 / 450 Other: Date of Last Bowel Movement 01/03/19 01/03/19 Narrative: GENERAL: Appears anxious SKIN: Warm and dry, intact, No lesions seen. HEAD: Normocephalic. EYES: No scleral icterus. No injection or drainage. Pupils are equal and reactive to light. NECK: Supple, trachea midline. No JVD or lymphadenopathy. CARDIOVASCULAR: Regular rate and rhythm without murmurs, gallops, or rubs, no edema present. Right upper fistula noted positive bruit and thrill. RESPIRATORY: Breath sounds very diminished throughout. Bilateral rhonchi at bases no accessory muscle use. GASTROINTESTINAL: Abdomen soft, non-tender, nondistended. Positive BS in all 4 quadrants. BACK: Nontender without obvious deformity. No CVA tenderness. Extremities: AV fistula positive thrill below it is a pocket of fluid Assessment and Plan - Assessment (1) Chronic kidney failure Code(s): N18.9 - Chronic kidney disease, unspecified Status: Chronic Qualifiers: Chronic kidney disease stage: stage 5 Qualified Code(s): N18.5 - Chronic kidney disease, stage 5 Plan: End-stage renal disease on dialysis blood pressure is low I will discontinue minoxidil AV fistula with positive thrill swelling below could be gravitational Keep is using AV fistula See if it improves with dialysis Placement needs to be made for outpatient dialysis (2) Hypertension Code(s): I10 - Essential (primary) hypertension Status: Chronic Plan: Patient blood pressure improved significantly after dialysis (3) Hepatitis C Code(s): B19.20 - Unspecified viral hepatitis C without hepatic coma Status: Acute Qualifiers: Viral hepatitis chronicity: unspecified Plan: New diagnosis of hep C -This can be worked up as an outpatient, will reschedule appointment with Dr. Miguel as an outpatient (4) COPD (chronic obstructive pulmonary disease) Code(s): J44.9 - Chronic obstructive pulmonary disease, unspecified Status: Acute Plan: Currently on nasal cannula. -Management per pulmonary
[2019-01-05] MEDS: Zolpidem Tartrate 5 MG Tablet PO PRN (20:50)
[2019-01-06] MEDS: ALPRAZolam 0.5 MG Tablet PO PRN ×3 (00:45→16:01)
[2019-01-06] MEDS: Levothyroxine 100 MCG Tablet PO SCH (05:37)
[2019-01-06 08:18] LABS: Albumin 2.6 g/dL (3.4-5.0); Calcium 8.3 mg/dL (8.5-10.1); Carbon Dioxide 27.4 meq/L (21.0-32.0); Phosphorus 4.4 mg/dL (2.5-4.9); Potassium 4.7 meq/L (3.5-5.1)
[2019-01-06] MEDS: Potassium Chloride 10 MEQ ER Capsule PO SCH ×2 (14:47→21:32)
[2019-01-06] MEDS: Calcium Acetate 667 MG Capsule PO SCH ×3 (14:48→17:17)
[2019-01-06] MEDS: GLYCOPYRROLATE FORMOTEROL INH SCH ×2 (14:48→21:40)
--- NOTE | 2019-01-06 15:40 | P.PN ---
Subjective Interval history: Patient deny any complaints getting hemodialysis Arrangement will be made by case finisher for out patient hemodialysis. Physical Exam Vital signs: Vital Signs 01/05/19 16:00 01/05/19 16:06 01/05/19 20:00 Temperature 98.1 F 97.3 F L Pulse Rate 61 98 H 77 Respiratory Rate 18 18 Blood Pressure 123/61 126/64 Pulse Oximetry 97 96 01/06/19 00:00 01/06/19 04:00 01/06/19 07:30 Temperature 97.3 F L 97.6 F 97.8 F Pulse Rate 66 65 60 Respiratory Rate 18 18 20 Blood Pressure 142/70 H 120/71 113/60 Pulse Oximetry 98 92 L 96 01/06/19 08:00 Temperature Pulse Rate Respiratory Rate Blood Pressure Pulse Oximetry 94 L Intake & Output 01/05/19 01/06/19 01/06/19 18:59 06:59 18:59 Intake Total 480 / 480 Output Total 450 / 450 1999 Balance -450 / -450 480 / 480 -1999 Weight 55.5 kg Intake: Oral 480 / 480 Output: Urine 450 / 450 Hemodialysis Amount 1999 Other: # Voids 2 Date of Last Bowel Movement 01/03/19 01/03/19 01/03/19 - Constitutional no acute distress - Routine HEENT Exam Head: Present: normocephalic, atraumatic Eye: Present: EOMI, PERRL ENT: Present: mucous membranes moist - Routine Neck Exam Present: supple, full ROM - Routine Respiratory Exam Present: CTA bilaterally - Routine Cardiovascular Exam Present: RRR, S1, S2 - Routine Abdominal Exam Present: soft, normoactive bowel sounds - Routine Extremities Exam Present: edema, full ROM - Routine Skin Exam Present: intact, dry, warm - Routine Neurological Exam Present: alert, oriented X3, CN II-XII intact, vision grossly intact, hearing grossly intact, normal speech - Detailed Neurological Exam: Coma Scale Eye Opening: Spontaneous Verbal Response: Oriented Motor Response: Obey commands [place] Coma Scale Total: 15 - Routine Psychiatric Exam Present: normal affect, normal thought process, good judgment Results - Labs CBC & Chem 7: 01/06/19 19:23 01/07/19 07:48 Laboratory Results - last 24 hr 01/06/19 07:30 Sodium 136 Potassium 4.7 Chloride 102 Carbon Dioxide 27.4 Anion Gap 7 BUN 46 H Creatinine 3.96 H Estimated GFR 12 L Random Glucose 94 Calcium 8.3 L Phosphorus 4.4 Albumin 2.6 L - Imaging Impressions Upper Extremity Ultrasound 01/05/19 00:00 CONCLUSION: 1. Mild subcutaneous edema. Assessment and Plan - Plan Assessment/plan: 1. Shortness of breath/? New onset congestive heart failure/COPD Exacerbation/ Volume overload. BNP 935 Chest x-ray significant for mild interstitial pulmonary edema, Echo done in 2017 showed an EF of 55-60% New onset bilateral lower extremity pitting edema Echo noted. Nephrology input noted to assist with diuresis in the setting of chronic kidney disease 2. Elevated troponin Patient's troponin 0.51 Likely secondary to renal failure EKG without ST segment elevation or depression, Patient denies chest pain Cardiology input noted, appreciate assistance..Patient has had an ischemic work up with normal nuclear stress test in past 3 months with her primary spring manufacturing set up technician, Dr Amaral as an oupatient. No further evaluation required at this time. With no evidence of ACS, Serial troponins/EKGs 3. Chronic kidney disease Threatening 3.89, baseline Patient with fistula but has not yet started dialysis Patient's alarm signaler, Dr. Fung following input noted, discussed with Dr Fung..appreciate assistance 4. Hepatitis C Continue outpatient follow-up 5. COPD Duo nebs Supplemental oxygen as needed 6. Hypertension/hypothyroidism Continue home medications 7. Anxiety ...on Xanax. FEN Cardic and renal diet. Electrolytes: Monitor and replete as needed Heparin Check CBC with diff CMP in AM. Arrangement will be made by case finisher for out patient hemodialysis.
--- NOTE | 2019-01-06 16:02 | P.PNNP ---
Subjective Interval history: Patient seen in dialysis, currently completed, 2 L removed <Elma Russo - Last Filed: 01/06/19 15:54> Physical Exam Vital signs: Vital Signs 01/05/19 16:00 01/05/19 16:06 01/05/19 20:00 Temperature 98.1 F 97.3 F L Pulse Rate 61 98 H 77 Respiratory Rate 18 18 Blood Pressure 123/61 126/64 Pulse Oximetry 97 96 01/06/19 00:00 01/06/19 04:00 01/06/19 07:30 Temperature 97.3 F L 97.6 F 97.8 F Pulse Rate 66 65 60 Respiratory Rate 18 18 20 Blood Pressure 142/70 H 120/71 113/60 Pulse Oximetry 98 92 L 96 01/06/19 08:00 Temperature Pulse Rate Respiratory Rate Blood Pressure Pulse Oximetry 94 L Intake & Output 01/05/19 01/06/19 01/06/19 18:59 06:59 18:59 Intake Total 480 / 480 Output Total 450 / 450 1999 Balance -450 / -450 480 / 480 -1999 Weight 55.5 kg Intake: Oral 480 / 480 Output: Urine 450 / 450 Hemodialysis Amount 1999 Other: # Voids 2 Date of Last Bowel Movement 01/03/19 01/03/19 01/03/19 Narrative: GENERAL: Sitting comfortably, no acute distress SKIN: Warm and dry, intact, No lesions seen. HEAD: Normocephalic. EYES: No scleral icterus. No injection or drainage. Pupils are equal and reactive to light. NECK: Supple, trachea midline. No JVD or lymphadenopathy. CARDIOVASCULAR: Regular rate and rhythm without murmurs, gallops, or rubs, no edema present. Right upper fistula noted positive bruit and thrill. RESPIRATORY: Breath sounds very diminished throughout. Bilateral rhonchi at bases no accessory muscle use. GASTROINTESTINAL: Abdomen soft, non-tender, nondistended. Positive BS in all 4 quadrants. BACK: Nontender without obvious deformity. No CVA tenderness. Extremities: AV fistula, positive bruit and thrill <Elma Russo - Last Filed: 01/06/19 15:54> Vital signs: Vital Signs 01/05/19 20:00 01/06/19 00:00 01/06/19 04:00 Temperature 97.3 F L 97.3 F L 97.6 F Pulse Rate 77 66 65 Respiratory Rate 18 18 18 Blood Pressure 126/64 142/70 H 120/71 Pulse Oximetry 96 98 92 L 01/06/19 07:30 01/06/19 08:00 01/06/19 15:56 Temperature 97.8 F 98.3 F Pulse Rate 60 68 Respiratory Rate 20 20 Blood Pressure 113/60 115/57 L Pulse Oximetry 96 94 L 95 Intake & Output 01/05/19 01/06/19 01/06/19 18:59 06:59 18:59 Intake Total 480 / 480 Output Total 450 / 450 3000 / 3000 Balance -450 / -450 480 / 480 -3000 / -3000 Weight 55.5 kg Intake: Oral 480 / 480 Output: Urine 450 / 450 1000 / 1000 Hemodialysis Amount 1999 Other: # Voids 2 Date of Last Bowel Movement 01/03/19 01/03/19 01/03/19 <Dena Fung - Last Filed: 01/06/19 17:33> Assessment and Plan - Assessment (1) Chronic kidney failure Code(s): N18.9 - Chronic kidney disease, unspecified Status: Chronic Qualifiers: Chronic kidney disease stage: stage 5 Qualified Code(s): N18.5 - Chronic kidney disease, stage 5 Plan: End-stage renal disease on dialysis. Pleated dialysis today, 2 L removed AV fistula with positive thrill and bruit, swelling has improved -Placement needs to be made for outpatient dialysis (2) Hypertension Code(s): I10 - Essential (primary) hypertension Status: Chronic Plan: Patient blood pressure currently 115/57 -Continue to monitor, continue with current treatment regimen (3) Hepatitis C Code(s): B19.20 - Unspecified viral hepatitis C without hepatic coma Status: Acute Qualifiers: Viral hepatitis chronicity: unspecified Plan: New diagnosis of hep C -This can be worked up as an outpatient, will reschedule appointment with Dr. Miguel as an outpatient (4) COPD (chronic obstructive pulmonary disease) Code(s): J44.9 - Chronic obstructive pulmonary disease, unspecified Status: Acute Plan: Currently on nasal cannula. -Management per pulmonary <Elma Russo - Last Filed: 01/06/19 15:54> - Assessment (1) Chronic kidney failure Code(s): N18.9 - Chronic kidney disease, unspecified Status: Chronic Qualifiers: Chronic kidney disease stage: stage 5 Qualified Code(s): N18.5 - Chronic kidney disease, stage 5 (2) Hypertension Code(s): I10 - Essential (primary) hypertension Status: Chronic (3) Hepatitis C Code(s): B19.20 - Unspecified viral hepatitis C without hepatic coma Status: Acute Qualifiers: Viral hepatitis chronicity: unspecified (4) COPD (chronic obstructive pulmonary disease) Code(s): J44.9 - Chronic obstructive pulmonary disease, unspecified Status: Acute - Plan I have seen and examined the patient and agree with above assessment and plan continue with dialysis, outpatient dialysis set up requested, patient is on Sunday schedule II liters were removed <Dena Fung - Last Filed: 01/06/19 17:33>
[2019-01-06 20:08] LABS: Baso % (Auto) 0.7 % (0.0-2.0); Eos # (Auto) 0.2 th/mm3 (0.0-0.4); Eos % (Auto) 4.6 % (0.0-4.0); Hematocrit 32.2 % (35.0-46.0); Lymph # (Auto) 1.3 th/mm3 (1.0-4.8); Lymph % (Auto) 25.1 % (9.0-44.0); Mean Corpuscular HGB Conc 34.1 % (32.0-36.0); Mean Corpuscular Hemoglobin 32.2 pg (27.0-34.0); Mean Corpuscular Volume 94.3 fL (80.0-100.0); Mean Platelet Volume 7.1 fL (7.0-11.0); Mono # (Auto) 0.5 th/mm3 (0.0-0.9); Mono % (Auto) 8.7 % (0.0-8.0); Neut # (Auto) 3.2 th/mm3 (1.8-7.7); Neut % (Auto) 60.9 % (16.0-70.0); Platelet Count 204 th/mm3 (150-450); Red Blood Count 3.41 mil/mm3 (4.00-5.30); Red Cell Distribution Width 13.8 % (11.6-17.2); White Blood Count 5.3 th/mm3 (4.0-11.0)
[2019-01-06 20:14] LABS: Alanine Aminotransferase 15 U/L (10-53); Albumin 2.7 g/dL (3.4-5.0); Alkaline Phosphatase 66 U/L (45-117); Anion Gap 3 meq/L (5-15); Aspartate Aminotransferase 19 U/L (15-37); Blood Urea Nitrogen 22 mg/dL (7-18); Calcium 9.2 mg/dL (8.5-10.1); Carbon Dioxide 34.8 meq/L (21.0-32.0); Chloride 99 meq/L (98-107); Glomerular Filtration Rate 19 mL/min (>89); Glucose,Random 95 mg/dL (74-106); Potassium 4.1 meq/L (3.5-5.1); Sodium 137 meq/L (136-145); Total Protein 6.1 g/dL (6.4-8.2)
[2019-01-06] MEDS: Zolpidem Tartrate 5 MG Tablet PO PRN (21:43)
[2019-01-07] MEDS: Levothyroxine 100 MCG Tablet PO SCH (05:38)
[2019-01-07 08:49] LABS: Albumin 2.9 g/dL (3.4-5.0); Calcium 8.8 mg/dL (8.5-10.1); Carbon Dioxide 31.7 meq/L (21.0-32.0)
[2019-01-07 08:50] LABS: Phosphorus 3.5 mg/dL (2.5-4.9)
[2019-01-07] MEDS: Potassium Chloride 10 MEQ ER Capsule PO SCH ×2 (09:00→20:55)
[2019-01-07] MEDS: Calcium Acetate 667 MG Capsule PO SCH ×3 (09:00→17:09)
[2019-01-07] MEDS: ALPRAZolam 0.5 MG Tablet PO PRN ×3 (09:00→17:09)
[2019-01-07] MEDS: GLYCOPYRROLATE FORMOTEROL INH SCH ×2 (09:38→20:56)
--- NOTE | 2019-01-07 12:05 | P.PN ---
Subjective Interval history: Patient deny any complaints getting hemodialysis Arrangement will be made by case liner for out patient hemodialysis. no acute issue. Physical Exam Vital signs: Vital Signs 01/06/19 15:56 01/06/19 20:00 01/07/19 00:00 Temperature 98.3 F 98.1 F 98.5 F Pulse Rate 68 61 60 Respiratory Rate 20 20 20 Blood Pressure 115/57 L 127/61 140/67 Pulse Oximetry 95 95 93 L 01/07/19 04:00 01/07/19 08:00 01/07/19 10:06 Temperature 98.1 F 97.6 F Pulse Rate 59 L 49 L Respiratory Rate 20 20 Blood Pressure 129/64 94/50 L Pulse Oximetry 93 L 93 L 98 01/07/19 11:56 Temperature 97.7 F Pulse Rate 51 L Respiratory Rate 20 Blood Pressure 105/59 L Pulse Oximetry 94 L Intake & Output 01/06/19 01/07/19 01/07/19 18:59 06:59 18:59 Output Total 3000 / 3000 Balance -3000 / -3000 Weight 56.3 kg Output: Urine 1000 / 1000 Hemodialysis Amount 1999 / 1999 Other: # Voids 4 Date of Last Bowel Movement 01/03/19 01/06/19 01/06/19 - Constitutional no acute distress - Routine HEENT Exam Head: Present: normocephalic, atraumatic ENT: Present: mucous membranes moist - Routine Neck Exam Present: supple, full ROM - Routine Respiratory Exam Present: CTA bilaterally - Routine Cardiovascular Exam Present: RRR, S1, S2 - Routine Abdominal Exam Present: soft, normoactive bowel sounds - Routine Extremities Exam Present: edema, full ROM - Routine Skin Exam Present: intact, dry, warm - Routine Neurological Exam Present: alert, oriented X3, CN II-XII intact, vision grossly intact, hearing grossly intact, normal speech - Detailed Neurological Exam: Coma Scale Eye Opening: Spontaneous Verbal Response: Oriented Motor Response: Obey commands [place] Coma Scale Total: 15 - Routine Psychiatric Exam Present: normal affect, normal thought process, good judgment Results - Labs CBC & Chem 7: 01/06/19 19:23 01/07/19 07:48 Laboratory Results - last 24 hr 01/06/19 01/06/19 01/07/19 19:23 19:23 07:48 WBC 5.3 RBC 3.41 L Hgb 11.0 L Hct 32.2 L MCV 94.3 D MCH 32.2 MCHC 34.1 RDW 13.8 Plt Count 204 MPV 7.1 Neut % (Auto) 60.9 Lymph % (Auto) 25.1 Dixon % (Auto) 8.7 H Eos % (Auto) 4.6 H Baso % (Auto) 0.7 Neut # (Auto) 3.2 Lymph # (Auto) 1.3 Dixon # (Auto) 0.5 Eos # (Auto) 0.2 Baso # (Auto) 0.0 WBC Differential . Differential Comment Auto diff final Sodium 137 137 Potassium 4.1 4.0 Chloride 99 99 Carbon Dioxide 34.8 H 31.7 Anion Gap 3 L 6 BUN 22 H 28 H Creatinine 2.59 H 3.12 H Estimated GFR 19 L 15 L Random Glucose 95 79 Calcium 9.2 D 8.8 Phosphorus 3.5 Total Bilirubin 0.4 AST 19 ALT 15 Alkaline Phosphatase 66 Total Protein 6.1 L Albumin 2.7 L 2.9 L Assessment and Plan - Plan Assessment/plan: 1. Shortness of breath/? New onset congestive heart failure/COPD Exacerbation/ Volume overload. BNP 935 Chest x-ray significant for mild interstitial pulmonary edema, Echo done in 2017 showed an EF of 55-60% New onset bilateral lower extremity pitting edema Echo noted. Nephrology input noted to assist with diuresis in the setting of chronic kidney disease 2. 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 No further evaluation required at this time. With no evidence of ACS, Serial troponins/EKGs 3. 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 Hepatitis C Continue outpatient follow-up 5. COPD Duo nebs Supplemental oxygen as needed 6. Hypertension/hypothyroidism Continue home medications 7. Anxiety ...on Xanax. FEN Cardic and renal diet. Electrolytes: Monitor and replete as needed Heparin Check CBC with diff CMP in AM. Arrangement will be made by case liner for out patient hemodialysis.
--- NOTE | 2019-01-07 15:12 | P.PNNP ---
Subjective Interval history: In great spirits today. Resting in bed with no acute complaints. <Elma Russo - Last Filed: 01/07/19 15:09> Physical Exam Vital signs: Vital Signs 01/06/19 15:56 01/06/19 20:00 01/07/19 00:00 Temperature 98.3 F 98.1 F 98.5 F Pulse Rate 68 61 60 Respiratory Rate 20 20 20 Blood Pressure 115/57 L 127/61 140/67 Pulse Oximetry 95 95 93 L 01/07/19 04:00 01/07/19 08:00 01/07/19 10:06 Temperature 98.1 F 97.6 F Pulse Rate 59 L 49 L Respiratory Rate 20 20 Blood Pressure 129/64 94/50 L Pulse Oximetry 93 L 93 L 98 01/07/19 11:56 Temperature 97.7 F Pulse Rate 51 L Respiratory Rate 20 Blood Pressure 105/59 L Pulse Oximetry 94 L Intake & Output 01/06/19 01/07/19 01/07/19 18:59 06:59 18:59 Output Total 3000 / 3000 Balance -3000 / -3000 Weight 56.3 kg Output: Urine 1000 / 1000 Hemodialysis Amount 1999 Other: # Voids 4 Date of Last Bowel Movement 01/03/19 01/06/19 01/06/19 Narrative: GENERAL: Sitting comfortably, no acute distress SKIN: Warm and dry, intact, No lesions seen. HEAD: Normocephalic. EYES: No scleral icterus. No injection or drainage. Pupils are equal and reactive to light. NECK: Supple, trachea midline. No JVD or lymphadenopathy. CARDIOVASCULAR: Regular rate and rhythm without murmurs, gallops, or rubs, no edema present. Right upper fistula noted positive bruit and thrill. RESPIRATORY: Breath sounds very diminished throughout. Bilateral rhonchi at bases no accessory muscle use. GASTROINTESTINAL: Abdomen soft, non-tender, nondistended. Positive BS in all 4 quadrants. BACK: Nontender without obvious deformity. No CVA tenderness. Extremities: AV fistula, positive bruit and thrill <Pavan Russoa - Last Filed: 01/07/19 15:09> Vital signs: Vital Signs 01/06/19 20:00 01/07/19 00:00 01/07/19 04:00 Temperature 98.1 F 98.5 F 98.1 F Pulse Rate 61 60 59 L Respiratory Rate 20 20 20 Blood Pressure 127/61 140/67 129/64 Pulse Oximetry 95 93 L 93 L 01/07/19 08:00 01/07/19 10:06 01/07/19 11:56 Temperature 97.6 F 97.7 F Pulse Rate 49 L 51 L Respiratory Rate 20 20 Blood Pressure 94/50 L 105/59 L Pulse Oximetry 93 L 98 94 L Intake & Output 01/06/19 01/07/19 01/07/19 18:59 06:59 18:59 Output Total 3000 / 3000 Balance -3000 / -3000 Weight 56.3 kg Output: Urine 1000 / 1000 Hemodialysis Amount 1999 Other: # Voids 4 Date of Last Bowel Movement 01/03/19 01/06/19 01/06/19 <Dena Fung - Last Filed: 01/07/19 16:27> Assessment and Plan - Assessment (1) Chronic kidney failure Code(s): N18.9 - Chronic kidney disease, unspecified Status: Chronic Qualifiers: Chronic kidney disease stage: stage 5 Qualified Code(s): N18.5 - Chronic kidney disease, stage 5 Plan: End-stage renal disease on dialysis. dialysis yesterday, 2 L removed Dialysis schedule Sunday AV fistula with positive thrill and bruit, swelling has improved -Spoke with Maeve perez, spring encaser, outpatient dialysis is being arranged at [facility]. -Dialysis tomorrow (2) Hypertension Code(s): I10 - Essential (primary) hypertension Status: Chronic Plan: Patient blood pressure currently controlled -Continue to monitor, continue with current treatment regimen (3) Hepatitis C Code(s): B19.20 - Unspecified viral hepatitis C without hepatic coma Status: Acute Qualifiers: Viral hepatitis chronicity: unspecified Plan: New diagnosis of hep C -This can be worked up as an outpatient, will reschedule appointment with Dr. Miguel as an outpatient (4) COPD (chronic obstructive pulmonary disease) Code(s): J44.9 - Chronic obstructive pulmonary disease, unspecified Status: Acute Plan: Currently on nasal cannula. -Management per pulmonary <Elma Russo - Last Filed: 01/07/19 15:09> - Assessment (1) Chronic kidney failure Code(s): N18.9 - Chronic kidney disease, unspecified Status: Chronic Qualifiers: Chronic kidney disease stage: stage 5 Qualified Code(s): N18.5 - Chronic kidney disease, stage 5 (2) Hypertension Code(s): I10 - Essential (primary) hypertension Status: Chronic (3) Hepatitis C Code(s): B19.20 - Unspecified viral hepatitis C without hepatic coma Status: Acute Qualifiers: Viral hepatitis chronicity: unspecified (4) COPD (chronic obstructive pulmonary disease) Code(s): J44.9 - Chronic obstructive pulmonary disease, unspecified Status: Acute - Plan I agree with above Assessment and Plan care discussed with BRIAN Mahoney increase to 10 mg q HS prn insomnia. she is not sleeping anxious to go home delay in getting a chair at HD unit due to insurance issue <Dena Fung - Last Filed: 01/07/19 16:27>
[2019-01-08] MEDS: ALPRAZolam 0.5 MG Tablet PO PRN ×4 (01:15→23:29)
[2019-01-08] MEDS: Levothyroxine 100 MCG Tablet PO SCH (06:30)
[2019-01-08] MEDS: GLYCOPYRROLATE FORMOTEROL INH SCH ×2 (08:50→20:12)
--- NOTE | 2019-01-08 09:39 | P.PN ---
Subjective Interval history: Patient getting hemodialysis today no acute issue waiting for out patient arrangement for hemodialysis. Physical Exam Vital signs: Vital Signs 01/07/19 10:06 01/07/19 11:56 01/07/19 12:00 Temperature 97.7 F Pulse Rate 51 L 52 L Respiratory Rate 20 Blood Pressure 105/59 L Pulse Oximetry 98 94 L 01/07/19 16:00 01/07/19 16:10 01/07/19 20:00 Temperature 97.9 F Pulse Rate 54 L 57 L 57 L Respiratory Rate 20 Blood Pressure 109/55 L Pulse Oximetry 90 L 01/07/19 20:28 01/07/19 21:22 01/08/19 00:00 Temperature 98.0 F Pulse Rate 58 L 62 Respiratory Rate 20 18 Blood Pressure 124/69 Pulse Oximetry 97 97 01/08/19 00:31 01/08/19 04:00 01/08/19 05:55 Temperature 98.2 F 98.0 F Pulse Rate 63 59 L 60 Respiratory Rate 20 18 20 Blood Pressure 137/68 119/62 Pulse Oximetry 96 95 01/08/19 06:13 01/08/19 07:50 01/08/19 08:00 Temperature 97.9 F Pulse Rate 61 57 L Respiratory Rate 20 Blood Pressure 116/66 109/59 L Pulse Oximetry 93 L 95 Intake & Output 01/07/19 01/08/19 01/08/19 18:59 06:59 18:59 Intake Total 720 / 720 Balance 720 / 720 Weight 56.4 kg Intake: Oral 720 / 720 Other: # Voids 3 2 Date of Last Bowel Movement 01/06/19 01/06/19 # Bowel Movements 1 - Constitutional no acute distress - Routine HEENT Exam Head: Present: normocephalic, atraumatic ENT: Present: mucous membranes moist - Routine Neck Exam Present: supple, full ROM - Routine Respiratory Exam Present: CTA bilaterally - Routine Cardiovascular Exam Present: RRR, S1, S2 - Routine Abdominal Exam Present: soft, normoactive bowel sounds - Routine Extremities Exam Present: full ROM - Routine Skin Exam Present: intact, dry, warm - Routine Neurological Exam Present: alert, oriented X3, CN II-XII intact, moving all extremities, vision grossly intact, hearing grossly intact, normal speech - Detailed Neurological Exam: Coma Scale Eye Opening: Spontaneous Verbal Response: Oriented Motor Response: Obey commands [place] Coma Scale Total: 15 - Routine Psychiatric Exam Present: normal affect, normal thought process, good judgment Results - Labs CBC & Chem 7: 01/06/19 19:23 01/07/19 07:48 Assessment and Plan - Plan Assessment/plan: 1. Shortness of breath/? New onset congestive heart failure/COPD Exacerbation/ Volume overload. BNP 935 Chest x-ray significant for mild interstitial pulmonary edema, Echo done in 2017 showed an EF of 55-60% New onset bilateral lower extremity pitting edema Echo noted. Nephrology input noted to assist with diuresis in the setting of chronic kidney disease 2. Elevated troponin Patient's troponin 0.51 Likely secondary to renal failure EKG without ST segment elevation or depression, Patient denies chest pain Cardiology input noted, appreciate assistance..Patient has had an ischemic work up with normal nuclear stress test in past 3 months with her primary intelligence manager, Dr Amraal as an oupatient. No further evaluation required at this time. With no evidence of ACS, Serial troponins/EKGs 3. 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 Fung following input noted, appreciate assistance Waiting for out patient hemodialysis arrangement. 4. Hepatitis C Continue outpatient follow-up 5. COPD Duo nebs Supplemental oxygen as needed 6. Hypertension/hypothyroidism Continue home medications 7. Anxiety ...on Xanax. FEN Cardic and renal diet. Electrolytes: Monitor and replete as needed Heparin Check CBC with diff CMP in AM. Arrangement will be made by medical case worker for out patient hemodialysis.
[2019-01-08] MEDS: Gelatin 12 MM/7 MM Topical Foam TOPICAL PRN (12:20)
--- NOTE | 2019-01-08 12:45 | P.PNNP ---
Subjective Interval history: Patient was seen during dialysis. She is in no acute distress at this time, resting comfortably. <Elma Russo - Last Filed: 01/08/19 12:41> Physical Exam Vital signs: Vital Signs 01/07/19 16:00 01/07/19 16:10 01/07/19 20:00 Temperature 97.9 F Pulse Rate 54 L 57 L 57 L Respiratory Rate 20 Blood Pressure 109/55 L Pulse Oximetry 90 L 01/07/19 20:28 01/07/19 21:22 01/08/19 00:00 Temperature 98.0 F Pulse Rate 58 L 62 Respiratory Rate 20 18 Blood Pressure 124/69 Pulse Oximetry 97 97 01/08/19 00:31 01/08/19 04:00 01/08/19 05:55 Temperature 98.2 F 98.0 F Pulse Rate 63 59 L 60 Respiratory Rate 20 18 20 Blood Pressure 137/68 119/62 Pulse Oximetry 96 95 01/08/19 06:13 01/08/19 07:50 01/08/19 08:00 Temperature 97.9 F Pulse Rate 61 57 L Respiratory Rate 20 Blood Pressure 116/66 109/59 L Pulse Oximetry 93 L 95 Intake & Output 01/07/19 01/08/19 01/08/19 18:59 06:59 18:59 Intake Total 720 / 720 Output Total 2500 / 2500 Balance 720 / 720 -2500 / -2500 Weight 56.4 kg Intake: Oral 720 / 720 Output: Hemodialysis Amount 2500 / 2500 Other: # Voids 3 2 Date of Last Bowel Movement 01/06/19 01/06/19 # Bowel Movements 1 Narrative: GENERAL: Sitting comfortably, no acute distress SKIN: Warm and dry, intact, No lesions seen. HEAD: Normocephalic. EYES: No scleral icterus. No injection or drainage. Pupils are equal and reactive to light. NECK: Supple, trachea midline. No JVD or lymphadenopathy. CARDIOVASCULAR: Regular rate and rhythm without murmurs, gallops, or rubs, no edema present. Right upper fistula noted positive bruit and thrill. RESPIRATORY: Breath sounds very diminished throughout. Bilateral rhonchi at bases no accessory muscle use. GASTROINTESTINAL: Abdomen soft, non-tender, nondistended. Positive BS in all 4 quadrants. BACK: Nontender without obvious deformity. No CVA tenderness. Extremities: AV fistula, positive bruit and thrill <Elma Russo - Last Filed: 01/08/19 12:41> Vital signs: Vital Signs 01/07/19 20:00 01/07/19 20:28 01/07/19 21:22 Temperature 98.0 F Pulse Rate 57 L 58 L Respiratory Rate 20 Blood Pressure 124/69 Pulse Oximetry 97 97 01/08/19 00:00 01/08/19 00:31 01/08/19 04:00 Temperature 98.2 F Pulse Rate 62 63 59 L Respiratory Rate 18 20 18 Blood Pressure 137/68 Pulse Oximetry 96 01/08/19 05:55 01/08/19 06:13 01/08/19 07:50 Temperature 98.0 F 97.9 F Pulse Rate 60 61 57 L Respiratory Rate 20 20 Blood Pressure 119/62 116/66 109/59 L Pulse Oximetry 95 93 L 01/08/19 08:00 01/08/19 12:00 Temperature Pulse Rate 57 L 59 L Respiratory Rate Blood Pressure Pulse Oximetry 95 Intake & Output 01/07/19 01/08/19 01/08/19 18:59 06:59 18:59 Intake Total 720 / 720 Output Total 3200 / 3200 Balance 720 / 720 -3200 / -3200 Weight 56.4 kg Intake: Oral 720 / 720 Output: Urine 700 / 700 Hemodialysis Amount 2500 / 2500 Other: # Voids 3 2 Date of Last Bowel Movement 01/06/19 01/06/19 01/08/19 # Bowel Movements 1 <Dena Fung - Last Filed: 01/08/19 16:24> Assessment and Plan - Assessment (1) Chronic kidney failure Code(s): N18.9 - Chronic kidney disease, unspecified Status: Chronic Qualifiers: Chronic kidney disease stage: stage 5 Qualified Code(s): N18.5 - Chronic kidney disease, stage 5 Plan: End-stage renal disease on dialysis. Patient currently in dialysis, plans to remove 2.5 L Dialysis schedule Sunday AV fistula with positive thrill and bruit, swelling has improved -Case management working on outpatient dialysis at [facility] (2) Hypertension Code(s): I10 - Essential (primary) hypertension Status: Chronic Plan: Patient blood pressure currently controlled -Continue to monitor, continue with current treatment regimen (3) Hepatitis C Code(s): B19.20 - Unspecified viral hepatitis C without hepatic coma Status: Acute Qualifiers: Viral hepatitis chronicity: unspecified Plan: New diagnosis of hep C -This can be worked up as an outpatient, will reschedule appointment with Dr. Miguel as an outpatient (4) COPD (chronic obstructive pulmonary disease) Code(s): J44.9 - Chronic obstructive pulmonary disease, unspecified Status: Acute Plan: -Management per pulmonary <Elma Russo - Last Filed: 01/08/19 12:41> - Assessment (1) Chronic kidney failure Code(s): N18.9 - Chronic kidney disease, unspecified Status: Chronic Qualifiers: Chronic kidney disease stage: stage 5 Qualified Code(s): N18.5 - Chronic kidney disease, stage 5 (2) Hypertension Code(s): I10 - Essential (primary) hypertension Status: Chronic (3) Hepatitis C Code(s): B19.20 - Unspecified viral hepatitis C without hepatic coma Status: Acute Qualifiers: Viral hepatitis chronicity: unspecified (4) COPD (chronic obstructive pulmonary disease) Code(s): J44.9 - Chronic obstructive pulmonary disease, unspecified Status: Acute - Attending Attestation I have seen and examined her during dialysis, care discussed with BRIAN Wills, waiting for placement as an outpatient, hemodialysis proceeding noted I agree with above assessment and plan <Dena Fung - Last Filed: 01/08/19 16:24>
[2019-01-08] MEDS: Potassium Chloride 10 MEQ ER Capsule PO SCH ×2 (13:42→20:10)
[2019-01-08] MEDS: Calcium Acetate 667 MG Capsule PO SCH ×3 (13:42→17:27)
[2019-01-08 16:32] LABS: Baso % (Auto) 0.7 % (0.0-2.0); Eos # (Auto) 0.2 th/mm3 (0.0-0.4); Eos % (Auto) 3.7 % (0.0-4.0); Hematocrit 34.2 % (35.0-46.0); Hemoglobin 11.8 gm/dL (11.6-15.3); Lymph % (Auto) 20.2 % (9.0-44.0); Mean Corpuscular HGB Conc 34.3 % (32.0-36.0); Mean Corpuscular Hemoglobin 32.5 pg (27.0-34.0); Mean Corpuscular Volume 94.7 fL (80.0-100.0); Mean Platelet Volume 7.1 fL (7.0-11.0); Mono # (Auto) 0.5 th/mm3 (0.0-0.9); Mono % (Auto) 9.8 % (0.0-8.0); Neut # (Auto) 3.2 th/mm3 (1.8-7.7); Neut % (Auto) 65.6 % (16.0-70.0); Platelet Count 190 th/mm3 (150-450); Red Blood Count 3.62 mil/mm3 (4.00-5.30); Red Cell Distribution Width 13.9 % (11.6-17.2); White Blood Count 4.8 th/mm3 (4.0-11.0)
[2019-01-08 16:50] LABS: Alanine Aminotransferase 17 U/L (10-53); Albumin 2.9 g/dL (3.4-5.0); Anion Gap 6 meq/L (5-15); Aspartate Aminotransferase 24 U/L (15-37); Blood Urea Nitrogen 23 mg/dL (7-18); Calcium 8.1 mg/dL (8.5-10.1); Carbon Dioxide 33.3 meq/L (21.0-32.0); Chloride 101 meq/L (98-107); Glomerular Filtration Rate 17 mL/min (>89); Glucose,Random 77 mg/dL (74-106); Phosphorus 3.5 mg/dL (2.5-4.9); Potassium 4.5 meq/L (3.5-5.1); Sodium 140 meq/L (136-145)
[2019-01-08 16:53] LABS: Alkaline Phosphatase 73 U/L (45-117); Total Protein 6.6 g/dL (6.4-8.2)
[2019-01-09 06:16] LABS: Albumin 2.7 g/dL (3.4-5.0); Calcium 8.2 mg/dL (8.5-10.1); Carbon Dioxide 31.4 meq/L (21.0-32.0); Phosphorus 3.8 mg/dL (2.5-4.9); Potassium 4.1 meq/L (3.5-5.1)
[2019-01-09] MEDS: Levothyroxine 100 MCG Tablet PO SCH (06:30)
[2019-01-09] MEDS: GLYCOPYRROLATE FORMOTEROL INH SCH ×2 (09:00→21:28)
--- NOTE | 2019-01-09 09:09 | P.PN ---
Subjective Interval history: Patient feel better no acute issue waiting for outpatient hemodialysis arrangement. Physical Exam Vital signs: Vital Signs 01/08/19 12:00 01/08/19 15:30 01/08/19 20:00 Temperature 98.4 F Pulse Rate 59 L 58 L 60 Respiratory Rate 20 Blood Pressure 121/59 L Pulse Oximetry 96 96 01/08/19 20:25 01/08/19 23:28 01/09/19 00:00 Temperature 98.0 F 98.0 F Pulse Rate 56 L 59 L 55 L Respiratory Rate 20 18 Blood Pressure 129/60 150/70 H Pulse Oximetry 100 99 01/09/19 04:00 01/09/19 04:40 01/09/19 06:24 Temperature 98.0 F Pulse Rate 55 L 58 L 59 L Respiratory Rate 18 Blood Pressure 120/64 127/62 Pulse Oximetry 98 Intake & Output 01/08/19 01/09/19 01/09/19 18:59 06:59 18:59 Intake Total 1500 / 1500 Output Total 3200 / 3200 Balance -1700 / -1700 Weight 56.4 kg Intake: Oral 1500 / 1500 Output: Urine 700 / 700 Hemodialysis Amount 2500 / 2500 Other: # Voids 3 Date of Last Bowel Movement 01/08/19 01/08/19 # Bowel Movements 1 - Constitutional no acute distress - Routine HEENT Exam Head: Present: normocephalic, atraumatic Eye: Present: EOMI, PERRL ENT: Present: mucous membranes moist - Routine Neck Exam Present: supple, full ROM - Routine Respiratory Exam Present: CTA bilaterally - Routine Cardiovascular Exam Present: RRR, S1, S2 - Routine Abdominal Exam Present: soft, normoactive bowel sounds - Routine Extremities Exam Present: full ROM - Routine Skin Exam Present: intact, dry, warm - Routine Neurological Exam Present: alert, oriented X3, CN II-XII intact, vision grossly intact, hearing grossly intact, normal speech - Detailed Neurological Exam: Coma Scale Eye Opening: Spontaneous Verbal Response: Oriented Motor Response: Obey commands [place] Coma Scale Total: 15 - Routine Psychiatric Exam Present: normal affect, normal thought process, good judgment Results - Labs CBC & Chem 7: 01/08/19 16:13 01/09/19 04:17 Laboratory Results - last 24 hr 01/08/19 01/08/19 01/09/19 16:13 16:13 04:17 WBC 4.8 RBC 3.62 L Hgb 11.8 Hct 34.2 L MCV 94.7 MCH 32.5 MCHC 34.3 RDW 13.9 Plt Count 190 MPV 7.1 Neut % (Auto) 65.6 Lymph % (Auto) 20.2 Ness % (Auto) 9.8 H Eos % (Auto) 3.7 Baso % (Auto) 0.7 Neut # (Auto) 3.2 Lymph # (Auto) 1.0 Ness # (Auto) 0.5 Eos # (Auto) 0.2 Baso # (Auto) 0.0 WBC Differential . Differential Comment Auto diff final Sodium 140 139 Potassium 4.5 4.1 Chloride 101 101 Carbon Dioxide 33.3 H 31.4 Anion Gap 6 7 BUN 23 H 26 H Creatinine 2.89 H 3.12 H Estimated GFR 17 L 15 L Random Glucose 77 85 Calcium 8.1 L 8.2 L Phosphorus 3.5 3.8 Total Bilirubin 0.4 AST 24 ALT 17 Alkaline Phosphatase 73 Total Protein 6.6 Albumin 2.9 L 2.7 L Assessment and Plan - Plan Assessment/plan: 1. Shortness of breath/? New onset congestive heart failure/COPD Exacerbation/ Volume overload. BNP 935 Chest x-ray significant for mild interstitial pulmonary edema, Echo done in 2017 showed an EF of 55-60% New onset bilateral lower extremity pitting edema Echo noted. Nephrology input noted to assist with diuresis in the setting of chronic kidney disease 2. Elevated troponin Patient's troponin 0.51 Likely secondary to renal failure EKG without ST segment elevation or depression, Patient denies chest pain Cardiology input noted, appreciate assistance..Patient has had an ischemic work up with normal nuclear stress test in past 3 months with her primary systems engineering manager, Dr Amaral as an outpatient. No further evaluation required at this time. With no evidence of ACS, Serial troponins/EKGs.. noted. 3. Chronic kidney disease Threatening 3.89, baseline Patient with fistula on hemodialysis Patient's aerial lineman, Dr. Fung following input noted, appreciate assistance Waiting for out patient hemodialysis arrangement. 4. Hepatitis C Continue outpatient follow-up 5. COPD Duo nebs Supplemental oxygen as needed 6. Hypertension/hypothyroidism Continue home medications 7. Anxiety ...on Xanax. FEN Cardic and renal diet. Electrolytes: Monitor and replete as needed Heparin Check CBC with diff CMP in AM. Arrangement will be made by case picker for out patient hemodialysis.
[2019-01-09] MEDS: Calcium Acetate 667 MG Capsule PO SCH ×3 (09:39→17:58)
[2019-01-09] MEDS: Potassium Chloride 10 MEQ ER Capsule PO SCH ×2 (09:39→21:25)
[2019-01-09] MEDS: ALPRAZolam 0.5 MG Tablet PO PRN ×2 (09:46→17:57)
[2019-01-09 11:24] LABS: Baso % (Auto) 0.8 % (0.0-2.0); Eos # (Auto) 0.3 th/mm3 (0.0-0.4); Eos % (Auto) 4.5 % (0.0-4.0); Hematocrit 34.7 % (35.0-46.0); Hemoglobin 11.8 gm/dL (11.6-15.3); Lymph # (Auto) 1.6 th/mm3 (1.0-4.8); Lymph % (Auto) 29.5 % (9.0-44.0); Mean Corpuscular Hemoglobin 32.7 pg (27.0-34.0); Mean Corpuscular Volume 96.3 fL (80.0-100.0); Mean Platelet Volume 7.2 fL (7.0-11.0); Mono # (Auto) 0.5 th/mm3 (0.0-0.9); Mono % (Auto) 9.8 % (0.0-8.0); Neut # (Auto) 3.1 th/mm3 (1.8-7.7); Neut % (Auto) 55.4 % (16.0-70.0); Platelet Count 180 th/mm3 (150-450); Red Blood Count 3.61 mil/mm3 (4.00-5.30); Red Cell Distribution Width 13.9 % (11.6-17.2); White Blood Count 5.5 th/mm3 (4.0-11.0)
[2019-01-09 11:46] LABS: Albumin 2.8 g/dL (3.4-5.0); Anion Gap 7 meq/L (5-15); Aspartate Aminotransferase 23 U/L (15-37); Calcium 8.3 mg/dL (8.5-10.1); Chloride 101 meq/L (98-107); Glomerular Filtration Rate 14 mL/min (>89); Glucose,Random 99 mg/dL (74-106); Potassium 4.2 meq/L (3.5-5.1); Sodium 139 meq/L (136-145)
[2019-01-09 11:56] LABS: Alanine Aminotransferase 19 U/L (10-53); Alkaline Phosphatase 74 U/L (45-117); Blood Urea Nitrogen 28 mg/dL (7-18); Total Protein 6.5 g/dL (6.4-8.2)
--- NOTE | 2019-01-09 13:00 | P.PNNP ---
Subjective Interval history: Patient resting comfortably in bed,, frustrated that she is still in the hospital. <Elma Russo - Last Filed: 01/09/19 12:55> Physical Exam Vital signs: Vital Signs 01/08/19 15:30 01/08/19 20:00 01/08/19 20:25 Temperature 98.4 F 98.0 F Pulse Rate 58 L 60 56 L Respiratory Rate 20 20 Blood Pressure 121/59 L 129/60 Pulse Oximetry 96 96 100 01/08/19 23:28 01/09/19 00:00 01/09/19 04:00 Temperature 98.0 F Pulse Rate 59 L 55 L 55 L Respiratory Rate 18 Blood Pressure 150/70 H Pulse Oximetry 99 01/09/19 04:40 01/09/19 06:24 01/09/19 08:39 Temperature 98.0 F 98.1 F Pulse Rate 58 L 59 L 49 L Respiratory Rate 18 18 Blood Pressure 120/64 127/62 113/57 L Pulse Oximetry 98 95 01/09/19 11:47 01/09/19 12:05 Temperature 99.1 F Pulse Rate 52 L Respiratory Rate 18 16 Blood Pressure 111/59 L Pulse Oximetry 99 Intake & Output 01/08/19 01/09/19 01/09/19 18:59 06:59 18:59 Intake Total 1500 / 1500 Output Total 3200 / 3200 Balance -1700 / -1700 Weight 56.4 kg Intake: Oral 1500 / 1500 Output: Urine 700 / 700 Hemodialysis Amount 2500 / 2500 Other: # Voids 3 Date of Last Bowel Movement 01/08/19 01/08/19 # Bowel Movements 1 Narrative: GENERAL: Sitting comfortably, no acute distress SKIN: Warm and dry, intact, No lesions seen. HEAD: Normocephalic. EYES: No scleral icterus. No injection or drainage. Pupils are equal and reactive to light. NECK: Supple, trachea midline. No JVD or lymphadenopathy. CARDIOVASCULAR: Regular rate and rhythm without murmurs, gallops, or rubs, no edema present. Right upper fistula noted positive bruit and thrill. RESPIRATORY: Normal rate. Expiratory wheezing heard anteriorly. GASTROINTESTINAL: Abdomen soft, non-tender, nondistended. Positive BS in all 4 quadrants. BACK: Nontender without obvious deformity. No CVA tenderness. Extremities: AV fistula, positive bruit and thrill <Elma Russo - Last Filed: 01/09/19 12:55> Vital signs: Vital Signs 01/08/19 20:00 01/08/19 20:25 01/08/19 23:28 Temperature 98.0 F 98.0 F Pulse Rate 60 56 L 59 L Respiratory Rate 20 18 Blood Pressure 129/60 150/70 H Pulse Oximetry 96 100 99 01/09/19 00:00 01/09/19 04:00 01/09/19 04:40 Temperature 98.0 F Pulse Rate 55 L 55 L 58 L Respiratory Rate 18 Blood Pressure 120/64 Pulse Oximetry 98 01/09/19 06:24 01/09/19 08:00 01/09/19 08:39 Temperature 98.1 F Pulse Rate 59 L 52 L 49 L Respiratory Rate 16 18 Blood Pressure 127/62 113/57 L Pulse Oximetry 96 95 01/09/19 11:47 01/09/19 12:00 01/09/19 12:05 Temperature 99.1 F Pulse Rate 52 L 50 L Respiratory Rate 18 16 Blood Pressure 111/59 L Pulse Oximetry 99 Intake & Output 01/08/19 01/09/19 01/09/19 18:59 06:59 18:59 Intake Total 1500 / 1500 Output Total 3200 / 3200 Balance -1700 / -1700 Weight 56.4 kg Intake: Oral 1500 / 1500 Output: Urine 700 / 700 Hemodialysis Amount 2500 / 2500 Other: # Voids 3 Date of Last Bowel Movement 01/08/19 01/08/19 01/08/19 # Bowel Movements 1 <Dena Fung - Last Filed: 01/09/19 16:11> Assessment and Plan - Assessment (1) Chronic kidney failure Code(s): N18.9 - Chronic kidney disease, unspecified Status: Chronic Qualifiers: Chronic kidney disease stage: stage 5 Qualified Code(s): N18.5 - Chronic kidney disease, stage 5 Plan: End-stage renal disease on dialysis. Creatinine 3.4, BUN 28, phosphorus 3.8 Dialysis schedule Sunday AV fistula with positive thrill and bruit. -Case management working on outpatient dialysis at [facility] -Dialysis tomorrow (2) Hypertension Code(s): I10 - Essential (primary) hypertension Status: Chronic Plan: Patient blood pressure currently controlled -Continue to monitor, continue with current treatment regimen (3) Hepatitis C Code(s): B19.20 - Unspecified viral hepatitis C without hepatic coma Status: Acute Qualifiers: Viral hepatitis chronicity: unspecified Plan: New diagnosis of hep C -This can be worked up as an outpatient, will reschedule appointment with Dr. Miguel as an outpatient (4) COPD (chronic obstructive pulmonary disease) Code(s): J44.9 - Chronic obstructive pulmonary disease, unspecified Status: Acute Plan: -Management per pulmonary <Elma Russo - Last Filed: 01/09/19 12:55> - Assessment (1) Chronic kidney failure Code(s): N18.9 - Chronic kidney disease, unspecified Status: Chronic Qualifiers: Chronic kidney disease stage: stage 5 Qualified Code(s): N18.5 - Chronic kidney disease, stage 5 (2) Hypertension Code(s): I10 - Essential (primary) hypertension Status: Chronic (3) Hepatitis C Code(s): B19.20 - Unspecified viral hepatitis C without hepatic coma Status: Acute Qualifiers: Viral hepatitis chronicity: unspecified (4) COPD (chronic obstructive pulmonary disease) Code(s): J44.9 - Chronic obstructive pulmonary disease, unspecified Status: Acute - Attending Attestation Patient is seen and examined awaiting chair time Donnell Adamson, care discussed with BRIAN Wills Continue supportive care Next dialysis is tomorrow <Dena Fung - Last Filed: 01/09/19 16:11>
[2019-01-10] MEDS: Levothyroxine 100 MCG Tablet PO SCH (05:46)
[2019-01-10] MEDS: ALPRAZolam 0.5 MG Tablet PO PRN ×2 (07:40→15:20)
[2019-01-10] MEDS: GLYCOPYRROLATE FORMOTEROL INH SCH ×2 (08:00→21:13)
[2019-01-10] MEDS: Potassium Chloride 10 MEQ ER Capsule PO SCH ×2 (09:52→21:11)
[2019-01-10] MEDS: Calcium Acetate 667 MG Capsule PO SCH ×3 (09:53→18:08)
--- NOTE | 2019-01-10 11:47 | P.PNNP ---
Subjective Interval history: Patient is seen during dialysis Physical Exam Vital signs: Vital Signs 01/09/19 11:47 01/09/19 12:00 01/09/19 12:05 Temperature 99.1 F Pulse Rate 52 L 50 L Respiratory Rate 18 16 Blood Pressure 111/59 L Pulse Oximetry 99 01/09/19 16:00 01/09/19 19:47 01/09/19 21:58 Temperature 98.2 F 97.9 F Pulse Rate 71 56 L Respiratory Rate 20 18 Blood Pressure 125/60 137/61 Pulse Oximetry 89 L 99 98 01/10/19 00:00 01/10/19 04:29 01/10/19 07:35 Temperature 97.6 F 97.7 F 97.7 F Pulse Rate 60 58 L 66 Respiratory Rate 18 20 20 Blood Pressure 140/67 123/65 121/57 L Pulse Oximetry 98 95 90 L 01/10/19 08:00 Temperature Pulse Rate 58 L Respiratory Rate Blood Pressure Pulse Oximetry Intake & Output 01/09/19 01/10/19 01/10/19 18:59 06:59 18:59 Output Total 1999 Balance -1999 Weight 57.4 kg Output: Hemodialysis Amount 1999 Other: # Voids 2 Date of Last Bowel Movement 01/08/19 01/09/19 Narrative: GENERAL: Sitting comfortably, no acute distress SKIN: Warm and dry, intact, No lesions seen. HEAD: Normocephalic. EYES: No scleral icterus. No injection or drainage. Pupils are equal and reactive to light. NECK: Supple, trachea midline. No JVD or lymphadenopathy. CARDIOVASCULAR: Regular rate and rhythm without murmurs, gallops, or rubs, no edema present. Right upper fistula noted positive bruit and thrill. RESPIRATORY: Normal rate. Expiratory wheezing heard anteriorly. GASTROINTESTINAL: Abdomen soft, non-tender, nondistended. Positive BS in all 4 quadrants. BACK: Nontender without obvious deformity. No CVA tenderness. Extremities: AV fistula, positive bruit and thrill Assessment and Plan - Assessment (1) Chronic kidney failure Code(s): N18.9 - Chronic kidney disease, unspecified Status: Chronic Qualifiers: Chronic kidney disease stage: stage 5 Qualified Code(s): N18.5 - Chronic kidney disease, stage 5 Plan: End-stage renal disease on dialysis. Dialysis proceeding noted, nurse reported abnormal pulsation in AV fistula at the initiation of dialysis however this went away and now the pressures and flow is good Ultrafiltration of 2 L Dialysis schedule Sunday AV fistula with positive thrill and bruit. -Case management working on outpatient dialysis at [facility] -Dialysis as outpatient next week (2) Hypertension Code(s): I10 - Essential (primary) hypertension Status: Chronic Plan: Patient blood pressure currently controlled -Continue to monitor, continue with current treatment regimen (3) Hepatitis C Code(s): B19.20 - Unspecified viral hepatitis C without hepatic coma Status: Acute Qualifiers: Viral hepatitis chronicity: unspecified Plan: New diagnosis of hep C -This can be worked up as an outpatient, will reschedule appointment with Dr. Miguel as an outpatient (4) COPD (chronic obstructive pulmonary disease) Code(s): J44.9 - Chronic obstructive pulmonary disease, unspecified Status: Acute Plan: -Management per pulmonary
[2019-01-10] MEDS: Gelatin 12 MM/7 MM Topical Foam TOPICAL PRN (11:53)
[2019-01-10] MEDS ORDERED: Tuberculin PPD 5 UNITS/0.1 ML Syringe I-DERMAL ONE ×2 (13:04→15:00)
--- NOTE | 2019-01-10 18:45 | P.PN ---
Subjective Interval history: Patient deny any complaints. waiting for out patient arrangement for hemodialysis. Physical Exam Vital signs: Vital Signs 01/09/19 19:47 01/09/19 21:58 01/10/19 00:00 Temperature 97.9 F 97.6 F Pulse Rate 56 L 60 Respiratory Rate 18 18 Blood Pressure 137/61 140/67 Pulse Oximetry 99 98 98 01/10/19 04:29 01/10/19 07:35 01/10/19 08:00 Temperature 97.7 F 97.7 F Pulse Rate 58 L 66 58 L Respiratory Rate 20 20 Blood Pressure 123/65 121/57 L Pulse Oximetry 95 90 L 01/10/19 12:00 01/10/19 12:55 01/10/19 13:08 Temperature 98.4 F Pulse Rate 59 L 65 Respiratory Rate 20 Blood Pressure 124/58 L Pulse Oximetry 90 L 90 L 01/10/19 15:00 Temperature 97.9 F Pulse Rate 69 Respiratory Rate 20 Blood Pressure 128/62 Pulse Oximetry 90 L Intake & Output 01/09/19 01/10/19 01/10/19 18:59 06:59 18:59 Output Total 1999 Balance -1999 Weight 57.4 kg Output: Hemodialysis Amount 1999 Other: # Voids 2 1 Date of Last Bowel Movement 01/08/19 01/09/19 - Constitutional no acute distress - Routine HEENT Exam Head: Present: normocephalic, atraumatic Eye: Present: EOMI, PERRL ENT: Present: mucous membranes moist - Routine Neck Exam Present: supple, full ROM - Routine Respiratory Exam Present: CTA bilaterally - Routine Cardiovascular Exam Present: RRR, S1, S2 - Routine Abdominal Exam Present: soft, normoactive bowel sounds - Routine Skin Exam Present: intact, dry, warm - Routine Neurological Exam Present: alert, oriented X3, CN II-XII intact, moving all extremities, vision grossly intact, hearing grossly intact, normal speech - Detailed Neurological Exam: Coma Scale Eye Opening: Spontaneous Verbal Response: Oriented Motor Response: Obey commands [place] Coma Scale Total: 15 - Routine Psychiatric Exam Present: normal affect, normal thought process, good judgment Results - Labs CBC & Chem 7: 01/12/19 16:03 01/14/19 07:15 Assessment and Plan - Plan Assessment/plan: 1. Shortness of breath/? New onset congestive heart failure/COPD Exacerbation/ Volume overload. BNP 935 Chest x-ray significant for mild interstitial pulmonary edema, Echo done in 2017 showed an EF of 55-60% New onset bilateral lower extremity pitting edema Echo noted. Nephrology input noted to assist with diuresis in the setting of chronic kidney disease 2. Elevated troponin Patient's troponin 0.51 Likely secondary to renal failure EKG without ST segment elevation or depression, Patient denies chest pain Cardiology input noted, appreciate assistance..Patient has had an ischemic work up with normal nuclear stress test in past 3 months with her primary neurodiagnostic tech, Dr Amaral as an outpatient. No further evaluation required at this time. With no evidence of ACS, Serial troponins/EKGs.. noted. 3. Chronic kidney disease Threatening 3.89, baseline Patient with fistula on hemodialysis Patient's brick extruder operator, Dr. Fung following input noted, appreciate assistance Waiting for out patient hemodialysis arrangement. 4. Hepatitis C Continue outpatient follow-up 5. COPD Duo nebs Supplemental oxygen as needed 6. Hypertension/hypothyroidism Continue home medications 7. Anxiety ...on Xanax. FEN Cardic and renal diet. Electrolytes: Monitor and replete as needed Heparin Check CBC with diff CMP in AM. Arrangement will be made by assistant case manager for out patient hemodialysis. Discharge plan soon.
[2019-01-10 20:20] LABS: Baso # (Auto) 0.1 th/mm3 (0.0-0.2); Baso % (Auto) 0.9 % (0.0-2.0); Eos # (Auto) 0.1 th/mm3 (0.0-0.4); Eos % (Auto) 2.3 % (0.0-4.0); Hemoglobin 11.8 gm/dL (11.6-15.3); Lymph # (Auto) 1.7 th/mm3 (1.0-4.8); Mean Corpuscular HGB Conc 33.8 % (32.0-36.0); Mean Corpuscular Hemoglobin 32.3 pg (27.0-34.0); Mean Corpuscular Volume 95.7 fL (80.0-100.0); Mean Platelet Volume 7.6 fL (7.0-11.0); Mono # (Auto) 0.6 th/mm3 (0.0-0.9); Mono % (Auto) 9.6 % (0.0-8.0); Neut # (Auto) 3.4 th/mm3 (1.8-7.7); Neut % (Auto) 58.2 % (16.0-70.0); Platelet Count 179 th/mm3 (150-450); Red Blood Count 3.66 mil/mm3 (4.00-5.30); Red Cell Distribution Width 14.1 % (11.6-17.2); White Blood Count 5.9 th/mm3 (4.0-11.0)
[2019-01-10 20:35] LABS: Albumin 2.8 g/dL (3.4-5.0); Anion Gap 4 meq/L (5-15); Aspartate Aminotransferase 21 U/L (15-37); Blood Urea Nitrogen 22 mg/dL (7-18); Calcium 8.2 mg/dL (8.5-10.1); Chloride 100 meq/L (98-107); Glomerular Filtration Rate 17 mL/min (>89); Glucose,Random 106 mg/dL (74-106); Potassium 4.3 meq/L (3.5-5.1); Sodium 136 meq/L (136-145)
[2019-01-10 20:40] LABS: Alanine Aminotransferase 19 U/L (10-53); Alkaline Phosphatase 73 U/L (45-117); Total Protein 6.3 g/dL (6.4-8.2)
[2019-01-11] MEDS: ALPRAZolam 0.5 MG Tablet PO PRN ×4 (00:54→22:04)
[2019-01-11] MEDS: Levothyroxine 100 MCG Tablet PO SCH (05:44)
[2019-01-11] MEDS: Potassium Chloride 10 MEQ ER Capsule PO SCH ×2 (08:37→20:47)
[2019-01-11] MEDS: Calcium Acetate 667 MG Capsule PO SCH ×3 (08:37→16:59)
[2019-01-11] MEDS: GLYCOPYRROLATE FORMOTEROL INH SCH ×2 (08:37→20:54)
--- NOTE | 2019-01-11 21:38 | P.PNNP ---
Subjective Interval history: Patient seen in the afternoon, alert, not in tenderness. Physical Exam Vital signs: Vital Signs 01/10/19 22:15 01/11/19 00:00 01/11/19 01:55 Temperature 97.9 F 97.9 F Pulse Rate 55 L 55 L 57 L Respiratory Rate 18 18 Blood Pressure 126/63 129/61 Pulse Oximetry 93 L 92 L 01/11/19 04:00 01/11/19 05:46 01/11/19 08:00 Temperature 98.2 F Pulse Rate 52 L 53 L Respiratory Rate 18 Blood Pressure 113/65 Pulse Oximetry 92 L 96 01/11/19 08:05 01/11/19 12:00 01/11/19 12:48 Temperature 97.8 F 97.7 F Pulse Rate 51 L 50 L 52 L Respiratory Rate 20 18 Blood Pressure 104/57 L 123/62 Pulse Oximetry 92 L 92 L 01/11/19 15:30 01/11/19 19:50 Temperature 97.7 F 98.1 F Pulse Rate 52 L 54 L Respiratory Rate 20 18 Blood Pressure 101/59 L 123/61 Pulse Oximetry 94 L 94 L Intake & Output 01/11/19 01/11/19 01/12/19 06:59 18:59 06:59 Output Total 1000 / 1000 2400 / 2400 Balance -1000 / -1000 -2400 / -2400 Weight 55.1 kg Output: Urine 1000 / 1000 2400 / 2400 Other: Date of Last Bowel Movement 01/10/19 01/10/19 Narrative: GENERAL: Sitting comfortably, no acute distress SKIN: Warm and dry, intact, No lesions seen. HEAD: Normocephalic. EYES: No scleral icterus. No injection or drainage. Pupils are equal and reactive to light. NECK: Supple, trachea midline. No JVD or lymphadenopathy. CARDIOVASCULAR: Regular rate and rhythm without murmurs, gallops, or rubs, no edema present. Right upper fistula noted positive bruit and thrill. RESPIRATORY: Normal rate. Expiratory wheezing heard anteriorly. GASTROINTESTINAL: Abdomen soft, non-tender, nondistended. Positive BS in all 4 quadrants. BACK: Nontender without obvious deformity. No CVA tenderness. Extremities: AV fistula, positive bruit and thrill Assessment and Plan - Assessment (1) Chronic kidney failure Code(s): N18.9 - Chronic kidney disease, unspecified Status: Chronic Qualifiers: Chronic kidney disease stage: stage 5 Qualified Code(s): N18.5 - Chronic kidney disease, stage 5 Plan: End-stage renal disease on dialysis. Dialysis proceeding noted, nurse reported abnormal pulsation in AV fistula at the initiation of dialysis however this went away and now the pressures and flow is good Ultrafiltration of 2 L Dialysis schedule Sunday AV fistula with positive thrill and bruit. -Case management working on outpatient dialysis at [facility] Awaiting placement for out patient HD. (2) Hypertension Code(s): I10 - Essential (primary) hypertension Status: Chronic Plan: Patient blood pressure currently controlled -Continue to monitor, continue with current treatment regimen (3) Hepatitis C Code(s): B19.20 - Unspecified viral hepatitis C without hepatic coma Status: Acute Qualifiers: Viral hepatitis chronicity: unspecified Plan: New diagnosis of hep C -This can be worked up as an outpatient, will reschedule appointment with Dr. Miguel as an outpatient (4) COPD (chronic obstructive pulmonary disease) Code(s): J44.9 - Chronic obstructive pulmonary disease, unspecified Status: Acute Plan: -Management per pulmonary - Plan I agree with above Assessment and Plan care discussed with BRIAN Elma Ambien increase to 10 mg q HS prn insomnia. she is not sleeping anxious to go home delay in getting a chair at HD unit due to insurance issue
[2019-01-12] MEDS: Levothyroxine 100 MCG Tablet PO SCH (06:16)
[2019-01-12] MEDS: GLYCOPYRROLATE FORMOTEROL INH SCH ×2 (08:56→21:42)
[2019-01-12] MEDS: Potassium Chloride 10 MEQ ER Capsule PO SCH ×2 (08:56→21:42)
[2019-01-12] MEDS: ALPRAZolam 0.5 MG Tablet PO PRN ×3 (08:56→21:41)
[2019-01-12] MEDS: Calcium Acetate 667 MG Capsule PO SCH ×3 (08:56→17:24)
--- NOTE | 2019-01-12 11:47 | P.PN ---
Subjective Interval history: Patient stable no acute issue getting hemodialysis, TB Test negative unable to arrange out patient hemodialysis because not covered by insurance discussed with Dr Fung licensed funeral director. Physical Exam Vital signs: Vital Signs 01/11/19 12:00 01/11/19 12:48 01/11/19 15:30 Temperature 97.7 F 97.7 F Pulse Rate 50 L 52 L 52 L Respiratory Rate 18 20 Blood Pressure 123/62 101/59 L Pulse Oximetry 92 L 94 L 01/11/19 19:50 01/11/19 23:55 01/12/19 04:35 Temperature 98.1 F 97.9 F 97.7 F Pulse Rate 54 L 50 L 50 L Respiratory Rate 18 20 17 Blood Pressure 123/61 138/67 116/59 L Pulse Oximetry 94 L 96 92 L 01/12/19 08:00 Temperature 97.7 F Pulse Rate 50 L Respiratory Rate 20 Blood Pressure 114/62 Pulse Oximetry 93 L Intake & Output 01/11/19 01/12/19 01/12/19 18:59 06:59 18:59 Intake Total 240 / 240 Output Total 2400 / 2400 1300 / 1300 Balance -2400 / -2400 -1300 / -1300 240 / 240 Weight 54.7 kg Intake: Oral 240 / 240 Output: Urine 2400 / 2400 1300 / 1300 Other: Date of Last Bowel Movement 01/10/19 01/11/19 01/11/19 - Constitutional no acute distress - Routine HEENT Exam Head: Present: normocephalic, atraumatic Eye: Present: EOMI, PERRL ENT: Present: mucous membranes moist - Routine Neck Exam Present: supple, full ROM - Routine Respiratory Exam Present: CTA bilaterally - Routine Cardiovascular Exam Present: RRR, S1, S2 - Routine Abdominal Exam Present: soft, normoactive bowel sounds - Routine Extremities Exam Present: full ROM - Routine Skin Exam Present: intact, dry, warm - Routine Neurological Exam Present: alert, oriented X3, CN II-XII intact, moving all extremities, vision grossly intact, hearing grossly intact, normal speech - Detailed Neurological Exam: Coma Scale Eye Opening: Spontaneous Verbal Response: Oriented Motor Response: Obey commands [place] Coma Scale Total: 15 - Routine Psychiatric Exam Present: normal affect, normal thought process, good judgment Results - Labs CBC & Chem 7: 01/12/19 16:03 01/14/19 07:15 Assessment and Plan - Plan Assessment/plan: 1. Shortness of breath/? New onset congestive heart failure/COPD Exacerbation/ Volume overload. BNP 935 Chest x-ray significant for mild interstitial pulmonary edema, Echo done in 2017 showed an EF of 55-60% New onset bilateral lower extremity pitting edema Echo noted. Nephrology input noted to assist with diuresis in the setting of chronic kidney disease 2. Elevated troponin Patient's troponin 0.51 Likely secondary to renal failure EKG without ST segment elevation or depression, Patient denies chest pain Cardiology input noted, appreciate assistance..Patient has had an ischemic work up with normal nuclear stress test in past 3 months with her primary seed packer, Dr Amaral as an outpatient. No further evaluation required at this time. With no evidence of ACS, Serial troponins/EKGs.. noted. 3. Chronic kidney disease Threatening 3.89, baseline Patient with fistula on hemodialysis Patient's licensed funeral director, Dr. Fung following input noted, appreciate assistance Waiting for out patient hemodialysis arrangement. 4. Hepatitis C Continue outpatient follow-up 5. COPD Duo nebs Supplemental oxygen as needed 6. Hypertension/hypothyroidism Continue home medications 7. Anxiety ...on Xanax. FEN Cardic and renal diet. Electrolytes: Monitor and replete as needed Heparin Check CBC with diff CMP in AM. TB Test negative, unable to arrange out patient hemodialysis because not covered by insurance discussed with Dr Fung licensed funeral director.
--- NOTE | 2019-01-12 11:47 | P.PN ---
Subjective Interval history: Patient seen on 01/11/19 Need TB Test before discharge S/P TB. Test need to be read after 2 days. no acute issue Physical Exam Vital signs: Vital Signs 01/11/19 12:00 01/11/19 12:48 01/11/19 15:30 Temperature 97.7 F 97.7 F Pulse Rate 50 L 52 L 52 L Respiratory Rate 18 20 Blood Pressure 123/62 101/59 L Pulse Oximetry 92 L 94 L 01/11/19 19:50 01/11/19 23:55 01/12/19 04:35 Temperature 98.1 F 97.9 F 97.7 F Pulse Rate 54 L 50 L 50 L Respiratory Rate 18 20 17 Blood Pressure 123/61 138/67 116/59 L Pulse Oximetry 94 L 96 92 L 01/12/19 08:00 Temperature 97.7 F Pulse Rate 50 L Respiratory Rate 20 Blood Pressure 114/62 Pulse Oximetry 93 L Intake & Output 01/11/19 01/12/19 01/12/19 18:59 06:59 18:59 Intake Total 240 / 240 Output Total 2400 / 2400 1300 / 1300 Balance -2400 / -2400 -1300 / -1300 240 / 240 Weight 54.7 kg Intake: Oral 240 / 240 Output: Urine 2400 / 2400 1300 / 1300 Other: Date of Last Bowel Movement 01/10/19 01/11/19 01/11/19 - Constitutional no acute distress - Routine HEENT Exam Head: Present: normocephalic, atraumatic Eye: Present: EOMI, PERRL ENT: Present: mucous membranes moist - Routine Neck Exam Present: supple, full ROM - Routine Respiratory Exam Present: CTA bilaterally - Routine Cardiovascular Exam Present: RRR, S1, S2 - Routine Abdominal Exam Present: soft, normoactive bowel sounds - Routine Extremities Exam Present: full ROM - Routine Skin Exam Present: intact, dry, warm - Routine Neurological Exam Present: alert, oriented X3, CN II-XII intact, moving all extremities, vision grossly intact, hearing grossly intact, normal speech - Detailed Neurological Exam: Coma Scale Eye Opening: Spontaneous Verbal Response: Oriented Motor Response: Obey commands [place] Coma Scale Total: 15 - Routine Psychiatric Exam Present: normal affect, normal thought process, good judgment Results - Labs CBC & Chem 7: 01/12/19 16:03 01/14/19 07:15 Assessment and Plan - Plan Assessment/plan: 1. Shortness of breath/? New onset congestive heart failure/COPD Exacerbation/ Volume overload. BNP 935 Chest x-ray significant for mild interstitial pulmonary edema, Echo done in 2017 showed an EF of 55-60% New onset bilateral lower extremity pitting edema Echo noted. Nephrology input noted to assist with diuresis in the setting of chronic kidney disease 2. Elevated troponin Patient's troponin 0.51 Likely secondary to renal failure EKG without ST segment elevation or depression, Patient denies chest pain Cardiology input noted, appreciate assistance..Patient has had an ischemic work up with normal nuclear stress test in past 3 months with her primary stove fitter, Dr Amaral as an outpatient. No further evaluation required at this time. With no evidence of ACS, Serial troponins/EKGs.. noted. 3. Chronic kidney disease Threatening 3.89, baseline Patient with fistula on hemodialysis Patient's draw off worker, Dr. Fung following input noted, appreciate assistance Waiting for out patient hemodialysis arrangement. 4. Hepatitis C Continue outpatient follow-up 5. COPD Duo nebs Supplemental oxygen as needed 6. Hypertension/hypothyroidism Continue home medications 7. Anxiety ...on Xanax. FEN Cardic and renal diet. Electrolytes: Monitor and replete as needed Heparin Check CBC with diff CMP in AM. Arrangement will be made by case briefer for out patient hemodialysis.
[2019-01-12 17:10] LABS: Baso # (Auto) 0.1 th/mm3 (0.0-0.2); Baso % (Auto) 1.2 % (0.0-2.0); Eos # (Auto) 0.2 th/mm3 (0.0-0.4); Eos % (Auto) 3.1 % (0.0-4.0); Hematocrit 37.1 % (35.0-46.0); Hemoglobin 12.4 gm/dL (11.6-15.3); Lymph # (Auto) 1.6 th/mm3 (1.0-4.8); Mean Corpuscular HGB Conc 33.3 % (32.0-36.0); Mean Corpuscular Hemoglobin 32.2 pg (27.0-34.0); Mean Corpuscular Volume 96.6 fL (80.0-100.0); Mean Platelet Volume 7.9 fL (7.0-11.0); Mono # (Auto) 0.4 th/mm3 (0.0-0.9); Mono % (Auto) 7.8 % (0.0-8.0); Neut # (Auto) 3.2 th/mm3 (1.8-7.7); Neut % (Auto) 58.9 % (16.0-70.0); Platelet Count 210 th/mm3 (150-450); Red Blood Count 3.85 mil/mm3 (4.00-5.30); Red Cell Distribution Width 14.8 % (11.6-17.2); White Blood Count 5.4 th/mm3 (4.0-11.0)
[2019-01-12 17:28] LABS: Alanine Aminotransferase 21 U/L (10-53); Anion Gap 6 meq/L (5-15); Aspartate Aminotransferase 22 U/L (15-37); Blood Urea Nitrogen 44 mg/dL (7-18); Calcium 8.5 mg/dL (8.5-10.1); Carbon Dioxide 29.4 meq/L (21.0-32.0); Chloride 103 meq/L (98-107); Glomerular Filtration Rate 11 mL/min (>89); Glucose,Random 88 mg/dL (74-106); Potassium 4.6 meq/L (3.5-5.1); Sodium 138 meq/L (136-145)
[2019-01-12 17:30] LABS: Alkaline Phosphatase 79 U/L (45-117); Total Protein 6.6 g/dL (6.4-8.2)
--- NOTE | 2019-01-12 19:22 | P.PNNP ---
Subjective Interval history: Patient is alert, seen in the afternoon,no SOB, not in distress. Physical Exam Vital signs: Vital Signs 01/11/19 19:50 01/11/19 23:55 01/12/19 04:35 Temperature 98.1 F 97.9 F 97.7 F Pulse Rate 54 L 50 L 50 L Respiratory Rate 18 20 17 Blood Pressure 123/61 138/67 116/59 L Pulse Oximetry 94 L 96 92 L 01/12/19 08:00 01/12/19 12:00 01/12/19 16:00 Temperature 97.7 F 97.4 F L 97.7 F Pulse Rate 50 L 50 L 51 L Respiratory Rate 20 20 20 Blood Pressure 114/62 111/55 L 119/59 L Pulse Oximetry 93 L 93 L 93 L Intake & Output 01/12/19 01/12/19 01/13/19 06:59 18:59 06:59 Intake Total 1440 / 1440 Output Total 1300 / 1300 Balance -1300 / -1300 1440 / 1440 Weight 54.7 kg Intake: Oral 1440 / 1440 Output: Urine 1300 / 1300 Other: Date of Last Bowel Movement 01/11/19 01/11/19 # Bowel Movements 1 Narrative: GENERAL: Sitting comfortably, no acute distress SKIN: Warm and dry, intact, No lesions seen. HEAD: Normocephalic. EYES: No scleral icterus. No injection or drainage. Pupils are equal and reactive to light. NECK: Supple, trachea midline. No JVD or lymphadenopathy. CARDIOVASCULAR: Regular rate and rhythm without murmurs, gallops, or rubs, no edema present. Right upper fistula noted positive bruit and thrill. RESPIRATORY: Normal rate. Expiratory wheezing heard anteriorly. GASTROINTESTINAL: Abdomen soft, non-tender, nondistended. Positive BS in all 4 quadrants. BACK: Nontender without obvious deformity. No CVA tenderness. Extremities: AV fistula, positive bruit and thrill Assessment and Plan - Assessment (1) Chronic kidney failure Code(s): N18.9 - Chronic kidney disease, unspecified Status: Chronic Qualifiers: Chronic kidney disease stage: stage 5 Qualified Code(s): N18.5 - Chronic kidney disease, stage 5 Plan: End-stage renal disease on dialysis. Dialysis proceeding noted, nurse reported abnormal pulsation in AV fistula at the initiation of dialysis however this went away and now the pressures and flow is good Dialysis schedule Bet[facility] Wednesday Dawson AV fistula with positive thrill and bruit. -Case management working on outpatient dialysis at [facility] Awaiting placement for out patient HD. HD will be in AM. Dr. Fung will follow from AM. Possible discharge tomorrow. (2) Hypertension Code(s): I10 - Essential (primary) hypertension Status: Chronic Plan: Patient blood pressure currently controlled -Continue to monitor, continue with current treatment regimen (3) Hepatitis C Code(s): B19.20 - Unspecified viral hepatitis C without hepatic coma Status: Acute Qualifiers: Viral hepatitis chronicity: unspecified Plan: New diagnosis of hep C -This can be worked up as an outpatient, will reschedule appointment with Dr. Miguel as an outpatient (4) COPD (chronic obstructive pulmonary disease) Code(s): J44.9 - Chronic obstructive pulmonary disease, unspecified Status: Acute Plan: -Management per pulmonary - Plan I agree with above Assessment and Plan care discussed with BRIAN Goodwinien increase to 10 mg q HS prn insomnia. she is not sleeping anxious to go home delay in getting a chair at HD unit due to insurance issue
[2019-01-13] MEDS: Levothyroxine 100 MCG Tablet PO SCH (05:35)
[2019-01-13] MEDS: ALPRAZolam 0.5 MG Tablet PO PRN ×3 (08:13→23:27)
[2019-01-13] MEDS: Calcium Acetate 667 MG Capsule PO SCH ×3 (08:14→17:25)
[2019-01-13] MEDS: Potassium Chloride 10 MEQ ER Capsule PO SCH ×3 (08:14→21:25)
[2019-01-13] MEDS: GLYCOPYRROLATE FORMOTEROL INH SCH ×2 (09:00→21:23)
--- NOTE | 2019-01-13 11:11 | P.PNNP ---
Subjective Interval history: Currently in dialysis. Very frustrated that she has not been discharged yet, continues to await for a chair time for outpatient dialysis. <Elma Russo - Last Filed: 01/13/19 11:07> Physical Exam Vital signs: Vital Signs 01/12/19 12:00 01/12/19 16:00 01/12/19 20:05 Temperature 97.4 F L 97.7 F 97.8 F Pulse Rate 50 L 51 L 50 L Respiratory Rate 20 20 17 Blood Pressure 111/55 L 119/59 L 124/58 L Pulse Oximetry 93 L 93 L 95 01/13/19 00:25 01/13/19 04:50 01/13/19 07:40 Temperature 98.3 F 97.6 F 98.2 F Pulse Rate 56 L 58 L 60 Respiratory Rate 18 19 20 Blood Pressure 143/68 H 123/63 124/67 Pulse Oximetry 94 L 92 L 99 Intake & Output 01/12/19 01/13/19 01/13/19 18:59 06:59 18:59 Intake Total 1440 / 1440 Output Total 600 / 600 Balance 1440 / 1440 -600 / -600 Weight 55.2 kg Intake: Oral 1440 / 1440 Output: Urine 600 / 600 Other: Date of Last Bowel Movement 01/11/19 01/12/19 01/12/19 # Bowel Movements 1 1 Narrative: GENERAL: Sitting comfortably, no acute distress SKIN: Warm and dry, intact, No lesions seen. HEAD: Normocephalic. EYES: No scleral icterus. No injection or drainage. Pupils are equal and reactive to light. NECK: Supple, trachea midline. No JVD or lymphadenopathy. CARDIOVASCULAR: Regular rate and rhythm without murmurs, gallops, or rubs, no edema present. Right upper fistula noted positive bruit and thrill. RESPIRATORY: Normal rate. Breath sounds diminished throughout. GASTROINTESTINAL: Abdomen soft, non-tender, nondistended. Positive BS in all 4 quadrants. BACK: Nontender without obvious deformity. No CVA tenderness. Extremities: AV fistula, positive bruit and thrill <Elma Russo - Last Filed: 01/13/19 11:07> Vital signs: Vital Signs 01/12/19 20:05 01/13/19 00:25 01/13/19 04:50 Temperature 97.8 F 98.3 F 97.6 F Pulse Rate 50 L 56 L 58 L Respiratory Rate 17 18 19 Blood Pressure 124/58 L 143/68 H 123/63 Pulse Oximetry 95 94 L 92 L 01/13/19 07:40 01/13/19 16:05 Temperature 98.2 F 98.1 F Pulse Rate 60 62 Respiratory Rate 20 20 Blood Pressure 124/67 123/58 L Pulse Oximetry 99 97 Intake & Output 01/12/19 01/13/19 01/13/19 18:59 06:59 18:59 Intake Total 1440 / 1440 Output Total 600 / 600 1999 Balance 1440 / 1440 -600 / -600 -1999 Weight 55.2 kg Intake: Oral 1440 / 1440 Output: Urine 600 / 600 Hemodialysis Amount 1999 Other: Date of Last Bowel Movement 01/11/19 01/12/19 01/12/19 # Bowel Movements 1 1 <Dena Fung - Last Filed: 01/13/19 17:05> Assessment and Plan - Assessment (1) Chronic kidney failure Code(s): N18.9 - Chronic kidney disease, unspecified Status: Chronic Qualifiers: Chronic kidney disease stage: stage 5 Qualified Code(s): N18.5 - Chronic kidney disease, stage 5 Plan: End-stage renal disease on dialysis. Currently in dialysis, plans to remove 2 L Dialysis schedule Sunday AV fistula with positive thrill and bruit. -Case management working on outpatient dialysis at [facility], it seems the hold up is secondary to insurance issues. (2) Hypertension Code(s): I10 - Essential (primary) hypertension Status: Chronic Plan: Patient blood pressure currently controlled -Continue to monitor, continue with current treatment regimen (3) Hepatitis C Code(s): B19.20 - Unspecified viral hepatitis C without hepatic coma Status: Acute Qualifiers: Viral hepatitis chronicity: unspecified Plan: New diagnosis of hep C -This can be worked up as an outpatient -She has rescheduled her appointment for as an outpatient (4) COPD (chronic obstructive pulmonary disease) Code(s): J44.9 - Chronic obstructive pulmonary disease, unspecified Status: Acute Plan: -Management per pulmonary <Elma Russo - Last Filed: 01/13/19 11:07> - Assessment (1) Chronic kidney failure Code(s): N18.9 - Chronic kidney disease, unspecified Status: Chronic Qualifiers: Chronic kidney disease stage: stage 5 Qualified Code(s): N18.5 - Chronic kidney disease, stage 5 (2) Hypertension Code(s): I10 - Essential (primary) hypertension Status: Chronic (3) Hepatitis C Code(s): B19.20 - Unspecified viral hepatitis C without hepatic coma Status: Acute Qualifiers: Viral hepatitis chronicity: unspecified (4) COPD (chronic obstructive pulmonary disease) Code(s): J44.9 - Chronic obstructive pulmonary disease, unspecified Status: Acute - Attending Attestation I have seen the patient during dialysis. Discussed with BRIAN Wills, I agree with above assessment and plan, 2 L of ultrafiltration is attempted, patient is frustrated as she did not have she is a location as outpatient yet. I called the dialysis unit and apparently there is some delay due to insurance approval, explained to the patient, patient wants to go home. <Dena Fung - Last Filed: 01/13/19 17:05>
[2019-01-14] MEDS: Levothyroxine 100 MCG Tablet PO SCH (06:04)
[2019-01-14] MEDS: ALPRAZolam 0.5 MG Tablet PO PRN ×3 (07:17→23:18)
[2019-01-14 08:23] LABS: Albumin 2.8 g/dL (3.4-5.0); Calcium 8.5 mg/dL (8.5-10.1); Carbon Dioxide 28.7 meq/L (21.0-32.0); Phosphorus 3.6 mg/dL (2.5-4.9); Potassium 3.9 meq/L (3.5-5.1)
[2019-01-14] MEDS: Potassium Chloride 10 MEQ ER Capsule PO SCH ×2 (08:43→22:22)
[2019-01-14] MEDS: Calcium Acetate 667 MG Capsule PO SCH ×3 (08:43→18:51)
[2019-01-14] MEDS: GLYCOPYRROLATE FORMOTEROL INH SCH ×2 (08:46→22:21)
--- NOTE | 2019-01-14 09:52 | P.PN ---
Subjective Interval history: Patient waiting for hemodialysis arrangement made no acute issue. Physical Exam Vital signs: Vital Signs 01/13/19 12:00 01/13/19 16:05 01/13/19 17:25 Temperature 98.1 F Pulse Rate 65 62 Respiratory Rate 20 9 L Blood Pressure 123/58 L Pulse Oximetry 97 01/13/19 20:00 01/13/19 21:25 01/14/19 00:00 Temperature 98.0 F Pulse Rate 54 L 59 L 57 L Respiratory Rate 17 Blood Pressure 129/68 Pulse Oximetry 95 01/14/19 01:20 01/14/19 04:00 01/14/19 05:45 Temperature 97.8 F 97.8 F Pulse Rate 53 L 54 L 67 Respiratory Rate 18 18 Blood Pressure 128/67 119/61 Pulse Oximetry 93 L 90 L 01/14/19 08:20 Temperature 98.0 F Pulse Rate 48 L Respiratory Rate 20 Blood Pressure 104/55 L Pulse Oximetry 95 Intake & Output 01/13/19 01/14/19 01/14/19 18:59 06:59 18:59 Intake Total 720 / 720 Output Total 1999 1000 / 1000 Balance -1280 / -1280 -1000 / -1000 Weight 53.9 kg Intake: Oral 720 / 720 Output: Urine 1000 / 1000 Hemodialysis Amount 1999 Other: # Voids 1 Date of Last Bowel Movement 01/12/19 01/13/19 # Bowel Movements 1 - Constitutional no acute distress - Routine HEENT Exam Head: Present: normocephalic, atraumatic Eye: Present: EOMI, PERRL ENT: Present: mucous membranes moist - Routine Neck Exam Present: supple, full ROM - Routine Respiratory Exam Present: CTA bilaterally - Routine Cardiovascular Exam Present: RRR, S1, S2 - Routine Abdominal Exam Present: soft, normoactive bowel sounds - Routine Extremities Exam Present: full ROM - Routine Skin Exam Present: intact, dry, warm - Routine Neurological Exam Present: alert, oriented X3, CN II-XII intact, moving all extremities, vision grossly intact, hearing grossly intact, normal speech - Detailed Neurological Exam: Coma Scale Eye Opening: Spontaneous Verbal Response: Oriented Motor Response: Obey commands [place] Coma Scale Total: 15 - Routine Psychiatric Exam Present: normal affect, normal thought process, good judgment Results - Labs CBC & Chem 7: 01/14/19 11:35 01/15/19 06:40 Laboratory Results - last 24 hr 01/14/19 07:15 Sodium 140 Potassium 3.9 Chloride 103 Carbon Dioxide 28.7 Anion Gap 8 BUN 35 H Creatinine 3.50 H Estimated GFR 14 L Random Glucose 86 Calcium 8.5 Phosphorus 3.6 Albumin 2.8 L Assessment and Plan - Plan Assessment/plan: 1. Shortness of breath/? New onset congestive heart failure/COPD Exacerbation/ Volume overload. BNP 935 Chest x-ray significant for mild interstitial pulmonary edema, Echo done in 2017 showed an EF of 55-60% New onset bilateral lower extremity pitting edema Echo noted. Nephrology input noted to assist with diuresis in the setting of chronic kidney disease 2. Elevated troponin Patient's troponin 0.51 Likely secondary to renal failure EKG without ST segment elevation or depression, Patient denies chest pain Cardiology input noted, appreciate assistance..Patient has had an ischemic work up with normal nuclear stress test in past 3 months with her primary network operations lead, Dr Amaral as an outpatient. No further evaluation required at this time. With no evidence of ACS, Serial troponins/EKGs.. noted. 3. Chronic kidney disease Threatening 3.89, baseline Patient with fistula on hemodialysis Patient's inspecting engineer, Dr. Fung following input noted, appreciate assistance Waiting for out patient hemodialysis arrangement. 4. Hepatitis C Continue outpatient follow-up 5. COPD Duo nebs Supplemental oxygen as needed 6. Hypertension/hypothyroidism Continue home medications 7. Anxiety ...on Xanax. FEN Cardic and renal diet. Electrolytes: Monitor and replete as needed Heparin Check CBC with diff CMP in AM. Arrangement will be made by watch caser for out patient hemodialysis.
[2019-01-14 11:52] LABS: Baso # (Auto) 0.1 th/mm3 (0.0-0.2); Baso % (Auto) 1.4 % (0.0-2.0); Eos # (Auto) 0.2 th/mm3 (0.0-0.4); Eos % (Auto) 4.2 % (0.0-4.0); Hematocrit 35.2 % (35.0-46.0); Hemoglobin 12.1 gm/dL (11.6-15.3); Lymph # (Auto) 1.9 th/mm3 (1.0-4.8); Lymph % (Auto) 37.7 % (9.0-44.0); Mean Corpuscular HGB Conc 34.5 % (32.0-36.0); Mean Corpuscular Hemoglobin 32.9 pg (27.0-34.0); Mean Corpuscular Volume 95.4 fL (80.0-100.0); Mean Platelet Volume 8.1 fL (7.0-11.0); Mono # (Auto) 0.5 th/mm3 (0.0-0.9); Mono % (Auto) 9.6 % (0.0-8.0); Neut # (Auto) 2.4 th/mm3 (1.8-7.7); Neut % (Auto) 47.1 % (16.0-70.0); Platelet Count 233 th/mm3 (150-450); Red Blood Count 3.68 mil/mm3 (4.00-5.30); Red Cell Distribution Width 14.4 % (11.6-17.2); White Blood Count 5.1 th/mm3 (4.0-11.0)
[2019-01-14 12:13] LABS: Alkaline Phosphatase 65 U/L (45-117)
[2019-01-14 12:38] LABS: Alanine Aminotransferase 20 U/L (10-53); Albumin 2.6 g/dL (3.4-5.0); Anion Gap 7 meq/L (5-15); Aspartate Aminotransferase 32 U/L (15-37); Blood Urea Nitrogen 37 mg/dL (7-18); Calcium 8.4 mg/dL (8.5-10.1); Chloride 104 meq/L (98-107); Glomerular Filtration Rate 13 mL/min (>89); Glucose,Random 110 mg/dL (74-106); Sodium 142 meq/L (136-145)
--- NOTE | 2019-01-14 12:59 | P.PNNP ---
Subjective Interval history: Patient continues to be frustrated,, wants to go home. Setting up outpatient dialysis continues to be in progress, due to insurance issues. <Elma Russo - Last Filed: 01/14/19 12:55> Physical Exam Vital signs: Vital Signs 01/13/19 16:05 01/13/19 17:25 01/13/19 20:00 Temperature 98.1 F Pulse Rate 62 54 L Respiratory Rate 20 9 L Blood Pressure 123/58 L Pulse Oximetry 97 01/13/19 21:25 01/14/19 00:00 01/14/19 01:20 Temperature 98.0 F 97.8 F Pulse Rate 59 L 57 L 53 L Respiratory Rate 17 18 Blood Pressure 129/68 128/67 Pulse Oximetry 95 93 L 01/14/19 04:00 01/14/19 05:45 01/14/19 08:20 Temperature 97.8 F 98.0 F Pulse Rate 54 L 67 48 L Respiratory Rate 18 20 Blood Pressure 119/61 104/55 L Pulse Oximetry 90 L 95 Intake & Output 01/13/19 01/14/19 01/14/19 18:59 06:59 18:59 Intake Total 720 / 720 Output Total 1999 1000 / 1000 Balance -1280 / -1280 -1000 / -1000 Weight 53.9 kg Intake: Oral 720 / 720 Output: Urine 1000 / 1000 Hemodialysis Amount 1999 Other: # Voids 1 Date of Last Bowel Movement 01/12/19 01/13/19 # Bowel Movements 1 Narrative: GENERAL: Sitting comfortably, no acute distress SKIN: Warm and dry, intact, No lesions seen. HEAD: Normocephalic. EYES: No scleral icterus. No injection or drainage. Pupils are equal and reactive to light. NECK: Supple, trachea midline. No JVD or lymphadenopathy. CARDIOVASCULAR: Regular rate and rhythm without murmurs, gallops, or rubs, no edema present. Right upper fistula noted positive bruit and thrill. RESPIRATORY: Normal rate. Breath sounds diminished throughout. GASTROINTESTINAL: Abdomen soft, non-tender, nondistended. Positive BS in all 4 quadrants. BACK: Nontender without obvious deformity. No CVA tenderness. Extremities: AV fistula, positive bruit and thrill <Elma Russo - Last Filed: 01/14/19 12:55> Vital signs: Vital Signs 01/13/19 16:05 01/13/19 17:25 01/13/19 20:00 Temperature 98.1 F Pulse Rate 62 54 L Respiratory Rate 20 9 L Blood Pressure 123/58 L Pulse Oximetry 97 01/13/19 21:25 01/14/19 00:00 01/14/19 01:20 Temperature 98.0 F 97.8 F Pulse Rate 59 L 57 L 53 L Respiratory Rate 17 18 Blood Pressure 129/68 128/67 Pulse Oximetry 95 93 L 01/14/19 04:00 01/14/19 05:45 01/14/19 08:20 Temperature 97.8 F 98.0 F Pulse Rate 54 L 67 48 L Respiratory Rate 18 20 Blood Pressure 119/61 104/55 L Pulse Oximetry 90 L 95 01/14/19 12:00 01/14/19 13:49 Temperature 97.6 F Pulse Rate 51 L Respiratory Rate 20 8 L Blood Pressure 106/57 L Pulse Oximetry 94 L Intake & Output 01/13/19 01/14/19 01/14/19 18:59 06:59 18:59 Intake Total 720 / 720 Output Total 1999 1000 / 1000 Balance -1280 / -1280 -1000 / -1000 Weight 53.9 kg Intake: Oral 720 / 720 Output: Urine 1000 / 1000 Hemodialysis Amount 1999 Other: # Voids 1 Date of Last Bowel Movement 01/12/19 01/13/19 # Bowel Movements 1 <Dena Fung - Last Filed: 01/14/19 14:33> Assessment and Plan - Assessment (1) Chronic kidney failure Code(s): N18.9 - Chronic kidney disease, unspecified Status: Chronic Qualifiers: Chronic kidney disease stage: stage 5 Qualified Code(s): N18.5 - Chronic kidney disease, stage 5 Plan: End-stage renal disease on dialysis. Dialysis yesterday, 2 L removed. Continues to have residual kidney function, Dialysis schedule Sunday AV fistula with positive thrill and bruit. -Case management working on outpatient dialysis at [facility], it seems the hold up is secondary to insurance issues. (2) Hypertension Code(s): I10 - Essential (primary) hypertension Status: Chronic Plan: Patient blood pressure currently controlled -Continue to monitor, continue with current treatment regimen (3) Hepatitis C Code(s): B19.20 - Unspecified viral hepatitis C without hepatic coma Status: Acute Qualifiers: Viral hepatitis chronicity: unspecified Plan: New diagnosis of hep C -This can be worked up as an outpatient -She has rescheduled her appointment for as an outpatient (4) COPD (chronic obstructive pulmonary disease) Code(s): J44.9 - Chronic obstructive pulmonary disease, unspecified Status: Acute Plan: -Management per pulmonary <Elma Russo - Last Filed: 01/14/19 12:55> - Assessment (1) Chronic kidney failure Code(s): N18.9 - Chronic kidney disease, unspecified Status: Chronic Qualifiers: Chronic kidney disease stage: stage 5 Qualified Code(s): N18.5 - Chronic kidney disease, stage 5 (2) Hypertension Code(s): I10 - Essential (primary) hypertension Status: Chronic (3) Hepatitis C Code(s): B19.20 - Unspecified viral hepatitis C without hepatic coma Status: Acute Qualifiers: Viral hepatitis chronicity: unspecified (4) COPD (chronic obstructive pulmonary disease) Code(s): J44.9 - Chronic obstructive pulmonary disease, unspecified Status: Acute - Attending Attestation Patient is frustrated as unable to discharge her with definite discharge plan of hemodialysis, so far there is no word from [employer] insurance allowing her to come as an outpatient for hemodialysis, I called Mary robbins and she said it is a delay on the insurance issue, apparently there is no contract, I spoke to case management told him to apply for outpatient [place] hemodialysis coverage, discussed with patient, Continue with dialysis plans on Sunday, Sunday and Sunday next dialysis tomorrow I agree with above assessment and plans. <Dena Fung - Last Filed: 01/14/19 14:33>
[2019-01-15] MEDS: Levothyroxine 100 MCG Tablet PO SCH (06:07)
[2019-01-15 07:58] LABS: Albumin 3.4 g/dL (3.4-5.0); Carbon Dioxide 28.8 meq/L (21.0-32.0); Phosphorus 4.1 mg/dL (2.5-4.9); Potassium 4.2 meq/L (3.5-5.1)
[2019-01-15 08:02] VITALS: RESP 20
--- NOTE | 2019-01-15 09:53 | P.PNNP ---
Subjective Interval history: doing well seen during dialysis Physical Exam Vital signs: Vital Signs 01/14/19 12:00 01/14/19 13:49 01/14/19 16:00 Temperature 97.6 F 98.2 F Pulse Rate 50 L 50 L Respiratory Rate 20 8 L 20 Blood Pressure 106/57 L 118/58 L Pulse Oximetry 94 L 98 01/14/19 20:00 01/14/19 20:16 01/14/19 21:10 Temperature 98.3 F Pulse Rate 52 L 57 L Respiratory Rate 17 20 16 Blood Pressure 115/64 Pulse Oximetry 94 L 01/14/19 23:18 01/15/19 00:00 01/15/19 01:20 Temperature 97.4 F L Pulse Rate 51 L 53 L Respiratory Rate 16 17 Blood Pressure 133/65 Pulse Oximetry 97 01/15/19 04:00 01/15/19 06:05 01/15/19 06:06 Temperature 97.8 F Pulse Rate 53 L 62 Respiratory Rate 19 17 Blood Pressure 116/60 Pulse Oximetry 92 L 01/15/19 07:20 Temperature 97.5 F L Pulse Rate 59 L Respiratory Rate 20 Blood Pressure 107/59 L Pulse Oximetry 94 L Intake & Output 01/14/19 01/15/19 01/15/19 18:59 06:59 18:59 Intake Total 720 / 720 Output Total 900 / 900 Balance 720 / 720 -900 / -900 Weight 54.1 kg 53.1 kg Intake: Oral 720 / 720 Output: Urine 900 / 900 Other: # Voids 3 Date of Last Bowel Movement 01/13/19 01/15/19 # Bowel Movements 1 Narrative: GENERAL: Sitting comfortably, no acute distress SKIN: Warm and dry, intact, No lesions seen. HEAD: Normocephalic. EYES: No scleral icterus. No injection or drainage. Pupils are equal and reactive to light. NECK: Supple, trachea midline. No JVD or lymphadenopathy. CARDIOVASCULAR: Regular rate and rhythm without murmurs, gallops, or rubs, no edema present. Right upper fistula noted positive bruit and thrill. RESPIRATORY: Normal rate. Breath sounds diminished throughout. GASTROINTESTINAL: Abdomen soft, non-tender, nondistended. Positive BS in all 4 quadrants. BACK: Nontender without obvious deformity. No CVA tenderness. Extremities: AV fistula, positive bruit and thrill Assessment and Plan - Assessment (1) Chronic kidney failure Code(s): N18.9 - Chronic kidney disease, unspecified Status: Chronic Qualifiers: Chronic kidney disease stage: stage 5 Qualified Code(s): N18.5 - Chronic kidney disease, stage 5 Plan: End-stage renal disease on dialysis. Dialysis proceedings noted 3K bath, 2 L removed. Continues to have residual kidney function, Dialysis schedule Sunday AV fistula with positive thrill and bruit. -OKJ to discharge from Nephrology point of view Sun 315 pm follow up at [facility] (2) Hypertension Code(s): I10 - Essential (primary) hypertension Status: Chronic Plan: Patient blood pressure currently controlled -Continue to monitor, continue with current treatment regimen (3) Hepatitis C Code(s): B19.20 - Unspecified viral hepatitis C without hepatic coma Status: Acute Qualifiers: Viral hepatitis chronicity: unspecified Plan: New diagnosis of hep C -This can be worked up as an outpatient -She has rescheduled her appointment for as an outpatient (4) COPD (chronic obstructive pulmonary disease) Code(s): J44.9 - Chronic obstructive pulmonary disease, unspecified Status: Acute Plan: -Management per pulmonary - Plan I agree with above Assessment and Plan care discussed with BRIAN Mahoney increase to 10 mg q HS prn insomnia. she is not sleeping anxious to go home delay in getting a chair at HD unit due to insurance issue
[2019-01-15] MEDS: Potassium Chloride 10 MEQ ER Capsule PO SCH (10:18)
[2019-01-15] MEDS: Calcium Acetate 667 MG Capsule PO SCH ×2 (10:19→12:57)
[2019-01-15] MEDS: GLYCOPYRROLATE FORMOTEROL INH SCH (10:19)
--- NOTE | 2019-01-15 11:47 | P.PN ---
Subjective Interval history: Patient outpatient hemodialysis arrangement have been made, ok to discharge per nephrology. Physical Exam Vital signs: Vital Signs 01/14/19 12:00 01/14/19 13:49 01/14/19 16:00 Temperature 97.6 F 98.2 F Pulse Rate 50 L 50 L Respiratory Rate 20 8 L 20 Blood Pressure 106/57 L 118/58 L Pulse Oximetry 94 L 98 01/14/19 20:00 01/14/19 20:16 01/14/19 21:10 Temperature 98.3 F Pulse Rate 52 L 57 L Respiratory Rate 17 20 16 Blood Pressure 115/64 Pulse Oximetry 94 L 01/14/19 23:18 01/15/19 00:00 01/15/19 01:20 Temperature 97.4 F L Pulse Rate 51 L 53 L Respiratory Rate 16 17 Blood Pressure 133/65 Pulse Oximetry 97 01/15/19 04:00 01/15/19 06:05 01/15/19 06:06 Temperature 97.8 F Pulse Rate 53 L 62 Respiratory Rate 19 17 Blood Pressure 116/60 Pulse Oximetry 92 L 01/15/19 07:20 Temperature 97.5 F L Pulse Rate 59 L Respiratory Rate 20 Blood Pressure 107/59 L Pulse Oximetry 94 L Intake & Output 01/14/19 01/15/19 01/15/19 18:59 06:59 18:59 Intake Total 720 / 720 Output Total 900 / 900 Balance 720 / 720 -900 / -900 Weight 54.1 kg 53.1 kg Intake: Oral 720 / 720 Output: Urine 900 / 900 Other: # Voids 3 Date of Last Bowel Movement 01/13/19 01/15/19 01/14/19 # Bowel Movements 1 - Constitutional no acute distress - Routine HEENT Exam Head: Present: normocephalic, atraumatic Eye: Present: EOMI, PERRL ENT: Present: mucous membranes moist - Routine Neck Exam Present: supple, full ROM - Routine Respiratory Exam Present: CTA bilaterally - Routine Cardiovascular Exam Present: RRR, S1, S2 - Routine Abdominal Exam Present: soft, normoactive bowel sounds - Routine Extremities Exam Present: full ROM - Routine Skin Exam Present: intact, dry, warm - Routine Neurological Exam Present: alert, oriented X3, CN II-XII intact, moving all extremities, vision grossly intact, hearing grossly intact, normal speech - Detailed Neurological Exam: Coma Scale Eye Opening: Spontaneous Verbal Response: Oriented Motor Response: Obey commands Flynn Coma Scale Total: 15 - Routine Psychiatric Exam Present: normal affect, normal thought process, good judgment Results - Labs CBC & Chem 7: 01/14/19 11:35 01/15/19 06:40 Laboratory Results - last 24 hr 01/14/19 01/14/19 01/15/19 11:35 11:35 06:40 WBC 5.1 RBC 3.68 L Hgb 12.1 Hct 35.2 MCV 95.4 MCH 32.9 MCHC 34.5 RDW 14.4 Plt Count 233 MPV 8.1 Neut % (Auto) 47.1 Lymph % (Auto) 37.7 [place] % (Auto) 9.6 H Eos % (Auto) 4.2 H Baso % (Auto) 1.4 Neut # (Auto) 2.4 Lymph # (Auto) 1.9 [place] # (Auto) 0.5 Eos # (Auto) 0.2 Baso # (Auto) 0.1 WBC Differential . Differential Comment Auto diff final Sodium 142 141 Potassium 4.0 4.2 Chloride 104 102 Carbon Dioxide 31.0 28.8 Anion Gap 7 10 BUN 37 H 44 H Creatinine 3.73 H 3.93 H Estimated GFR 13 L 12 L Random Glucose 110 H 82 Calcium 8.4 L 9.0 Phosphorus 4.1 Total Bilirubin 0.3 AST 32 ALT 20 Alkaline Phosphatase 65 Total Protein 6.0 L D Albumin 2.6 L 3.4 D Assessment and Plan - Plan Assessment/plan: 1. Shortness of breath/? New onset congestive heart failure/COPD Exacerbation/ Volume overload. BNP 935 Chest x-ray significant for mild interstitial pulmonary edema, Echo done in 2017 showed an EF of 55-60% New onset bilateral lower extremity pitting edema Echo noted. Nephrology input noted to assist with diuresis in the setting of chronic kidney disease 2. Elevated troponin Patient's troponin 0.51 Likely secondary to renal failure EKG without ST segment elevation or depression, Patient denies chest pain Cardiology input noted, appreciate assistance..Patient has had an ischemic work up with normal nuclear stress test in past 3 months with her primary elder assistant, Dr Amaral as an outpatient. No further evaluation required at this time. With no evidence of ACS, Serial troponins/EKGs.. noted. 3. 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 Fung following input noted, appreciate assistance Waiting for out patient hemodialysis arrangement. 4. Hepatitis C Continue outpatient follow-up 5. COPD Duo nebs Supplemental oxygen as needed 6. Hypertension/hypothyroidism Continue home medications 7. Anxiety ...on Xanax. FEN Cardic and renal diet. Electrolytes: Monitor and replete as needed Heparin ok to discharge home today. f/u with PCP/ Nephrology as advised.
[2019-01-15 13:02] VITALS: BP 140/67; PULSE 66; TEMP 97.9; O2SAT 91
--- NOTE | 2019-01-15 13:17 | MD ---
cc: Merlin Vidales MD DATE OF DISCHARGE: 01/15/2019 Okay to discharge. CONDITION AT THE TIME OF DISCHARGE: Satisfactory. ACTIVITY: As tolerated. DISCHARGE DIET: Cardiac diet, renal diet, low-salt diet. ALLERGIES: PENICILLIN G, SULFA SULFONAMIDE ANTIBIOTIC. DISCHARGE MEDICATIONS: 1. Aspirin 81 mg p.o. daily. 2. Tessalon Perles 100 mg twice a day. 3. Glycopyrrolate formoterol 9/4.8 mcg HFA inhalation 2 puff inhalation in the morning. 4. [place] 5/325 mg every 6 hours p.r.n. pain. 5. Levothyroxine 100 mcg p.o. daily. 6. Minoxidil 2.5 mg p.o. daily. 7. Nifedipine 90 mg p.o. daily. ADMITTING DIAGNOSIS: 1. Shortness of breath. 2. New-onset congestive heart failure. 3. COPD exacerbation. 4. Volume overload. HOSPITAL COURSE: The patient's BNP was 935. Chest x-ray was significant for mild interstitial pulmonary edema. Echo done and shows ejection fraction 55-60%. The patient has new-onset bilateral pitting edema. Nephrology is seeing the patient. The patient has chronic renal failure. DISCHARGE DIAGNOSES: 1. Shortness of breath, resolved. The patient is improved. 2. High troponin. Cardiology is seeing the patient. High troponin because of the renal failure. EKG without ST segment elevation or depression. The patient has ischemic workup with a normal nuclear stress test done 3 months ago with her primary bicycle i assembler, Dr. Amaral, as an outpatient, so no further evaluation is required. The patient has elevated troponin because of the renal failure. 3. Chronic kidney disease. Creatinine was 3.89, baseline. The patient had a fistula for hemodialysis. The patient got hemodialysis during hospital stay. Dr. Fung, head grinder, saw the patient during hospital stay. Outpatient hemodialysis arrangement was made. 4. History of hepatitis C. 5. History of chronic obstructive pulmonary disease. 6. History of hypertension. 7. History of hypothyroidism. 8. History of anxiety. HOSPITAL COURSE: This is a 53-year-old female with past medical history as dictated above, came [facility] the ER at [facility] with shortness of breath, new onset congestive heart failure, chronic obstructive pulmonary disease exacerbation, volume overload. The patient has a chest x-ray that shows mild interstitial pulmonary edema and also bilateral pulmonary pitting lower extremity edema and the patient has elevated troponin. Cardiology has seen the patient. No ischemic workup needed. The patient had a normal stress test 3 months ago. The patient has chronic kidney disease. Creatinine was 3.89. The patient was seen by nephrology, Dr. Fung, got hemodialysis. Arrangements were made for outpatient hemodialysis. The patient also has a TB test done in the hospital, which turned out to be negative. The patient had a longer hospital stay because of the arrangements that needed to be made for hemodialysis. Patient was discharged in satisfactory condition. Advised to follow up with hemodialysis with Dr. Fung, and a follow up with me in 3-4 days. Merlin Vidales MD EA/kedar/ll , 11:58 AM , 12:07 PM
--- NOTE | 2019-01-19 12:52 | PQ ---
Physician Query Response Document PATIENT: Lillian Arzola : 1965 ADMIT DATE: 12/31/2018 10:46 PM DISCH DATE: 01/15/2019 2:08 PM RESPONDING PROVIDER #: EAHMED QUERY TEXT: Heart Failure Acuity and Type Congestive Heart Failure is documented in the Medical Record. Please document the type and acuity (in cludes probable or suspected) Such as: Type: -- Combined systolic and diastolic (heart failure with reduced ejection fraction and diastolic) dysfu nction -- Diastolic (HFpEF) -- Systolic (HFrEF) -- Left heart failure -- Right heart failure -- Right heart failure due to left heart failure -- High output failure -- End stage heart failure -- Other, please specify Acuity: -- Acute -- Chronic -- Acute on chronic -- Other, please specify If you have any additional questions/comments and/or concerns, please do not hesitate to reach out to the [employer] Hotline, Ext. [phone]. The patient's Clinical Indicators include: Discharge Summary documents: ADMITTING DIAGNOSIS: 1.Shortness of breath. 2.New-onset congestive heart failure. 3.COPD exacerbation. 4.Volume overload. DISCHARGE DIAGNOSES: 1. Shortness of breath, resolved.The patient is improved....... 3. Chronic kidney disease. Creatinine was 3.89, baseline. The patient had a fistula for hemodialys is. The patient got hemodialysis during hospital stay. Dr. Fung's Nephrology consultation: Attending Attestation: Have seen and examined the patient and discussed care with patient and BRIAN Wills, she has progressive kidney failure and now in stage V with volume overload, congestive heart failure, uncontrolled hypertension, discussed with the patient she would likely need hemodialysis, Echocardiogram performed on 01/01/19: Indication: HEART FAILURE CONCLUSIONS: The left ventricular systolic function is moderately reduced with an estimated ejection fraction in t he range of 40-45%. Mildly dilated left ventricle. The mid to distal anteroseptal wall is akinetic with thinning, consistent with prior infarction. [id number] mitral valve regurgitation. There is mild tricuspid valve regurgitation. There is estimated moderate pulmonary hypertension present (range 50-60 mmHg). There is a moderate sized pericardial effusion. No hemodynamically significant echocardiographic features were observed (no pre-tamponade physiology) . Bilateral pleural effusions Query created by: Gardenia Bryant on 01/17/2019 9:30 AM RESPONSE TEXT: Acute on chronic diastolic heart failure. Electronically signed by: Merlin Vidales MD 01/19/2019 12:48 PM
== END 2019-01-15 14:08 | disposition home or self-care (01) | DRG 682 ==
LOC: NEPE 19:46 → NEDA 22:46 → HCIS 01-01 01:34 → N05 01-02 16:15
PROVIDERS: ADMIT Family Medicine; ATTEND Family Medicine
CPT/HCPCS: 71010; 71045; 76882; 80048; 80053; 80069; 80074; 82550; 83520; 83735; 83880; 84100; 84484; 85025; 85027; 85610; 85730; 90774; 90775; 90784; 90935; 93005; 93306; 94640; 94664; 94665; 96374; 96375; 99291; C8952; J0886; J1644; J1940; J2270; J2405; Q0163; Q4055; Q4081